=== PATIENT | male | born 1940 | race Caucasian/White ===

== ENCOUNTER → 2017-04-28 08:48 | Outpatient (POV) | payer MEDICARE, BC, SELFPAY ==
[2017-04-28 09:00] VITALS: BP 121/92; PULSE 82; RESP 18; TEMP 36.4; O2SAT 95; BMI 33.7
--- NOTE | 2017-04-28 09:47 | P.CONS_ITS ---
[facility] Pain Management SOAP Note Subjective:: This patient is a pleasant 77-year-old white male who we are seeing status post medial branch blocks/facet joint injections of L3-L4, L4-L5 and L5-S1 bilateral. He is doing well with 80% relief of pain symptoms from these injections. Most of his pain now is over both hips in particular over the SI joints radiating to the groin. He is tender over both SI joints. He has positive Tanesha's test bilaterally. I do believe that he would benefit from bilateral SI joint injections under fluoroscopy. Objective:: Alert and oriented ?3 in no acute distress. Tenderness over both SI joints. Positive Tanesha's test bilaterally. Motor strength of the lower extremities is 5 /5. There is no gross sensory deficit. Assessment:: Bilateral sacroiliitis Plan:: We will seek approval and plan on bilateral sacroiliac joint injections under fluoroscopy. After these injections we will reassess his pain symptoms.
== END ==
PROVIDERS: Family Provider Family Medicine; PCP Family Medicine; Visit Provider Anesthesiology
DX: M46.1 Sacroiliitis, not elsewhere classified (principal)
CPT/HCPCS: 99212

== ENCOUNTER → 2017-05-23 15:43 | Day surgery (SDC) | payer MEDICARE, BC, SELFPAY ==
[2017-05-23 15:50] VITALS: BP 143/69; PULSE 85; RESP 16; TEMP 36.7; O2SAT 97; BMI 33.8
[2017-05-23 16:04] VITALS: BP 161/87; PULSE 89; RESP 18
[2017-05-23 16:06] VITALS: BP 144/90; PULSE 79; RESP 18
--- NOTE | 2017-05-23 16:15 | HMH.PMPROC ---
- Procedure Date: 05/23/17 Time: 16:15 Anesthesiologist:: Yariel Gallegos MD Complications:: None Pre-procedure Diagnosis:: Bilateral sacroiliitis Post-procedure Diagnosis:: Same Indications for Procedure:: This patient is a pleasant 77-year-old white male who we are seeing status post medial branch blocks of the facet joints of L3-L4, L4-L5 and L5-S1. He did get relief with these. Now most of his pain is over both hips. He is tender over both SI joints. He does have positive Tanesha's test bilaterally. We will do bilateral SI joint injections under fluoroscopy today. Procedure Details:: B/L SI joint injection under fluoroscopy Informed consent was obtained and the risks and benefits of the procedure was explained to the patient. The patient was taken to the procedure room and placed prone on the procedure table. The patient was prepped using ChloraPrep. The skin and subcutaneous tissues overlying the SI joints were anesthetized using lidocaine. I placed a 22-gauge needle first in the left SI joint and second in the right SI joint. Needle placement was confirmed with dye. After this we injected 5 mL bupivacaine 0.25% and Depo-Medrol 40 mg into each SI joint. Patient tolerated the procedure well with no complication. Plan and Disposition:: We will follow-up with him in 2 weeks. We will reevaluate his symptoms at that time.
[2017-05-23 16:20] VITALS: BP 122/85; PULSE 74; RESP 18; TEMP 36.6; O2SAT 97
== END ==
PROVIDERS: Family Provider Family Medicine; PCP Family Medicine; Visit Provider Anesthesiology
DX: M46.1 Sacroiliitis, not elsewhere classified (principal)
CPT/HCPCS: 27096; G0260; J1030; Q9966

== ENCOUNTER → 2017-06-16 14:10 | Outpatient (POV) | payer MEDICARE, BC, SELFPAY ==
[2017-06-16 14:56] VITALS: BP 118/75; PULSE 64; RESP 20; O2SAT 100; BMI 33.8
--- NOTE | 2017-06-16 15:14 | HMH.PAINSOAP ---
[facility] Pain Management SOAP Note Subjective:: This patient is a pleasant 77-year-old white male who we are seeing status post bilateral SI joint injections. He did not get much relief. His pain now has moved over his trochanteric bursa is. I do believe he would benefit from bilateral trochanteric bursa injections. He is tender over both trochanteric bursa. Objective:: Alert and oriented ?3 in no acute distress. Patient does have an antalgic gait. There is tenderness over both trochanteric bursa. Motor strength of the lower extremities is 5/5. There is no gross sensory deficit. Assessment:: Degenerative disc disease of lumbar spine with lumbar spondylosis. Sacroiliitis. Bilateral trochanteric bursitis. Plan:: We will seek approval and plan on bilateral trochanteric bursa injection under fluoroscopy. We will schedule this for the next available appointment
== END ==
PROVIDERS: Family Provider Family Medicine; PCP Family Medicine; Visit Provider Anesthesiology
DX: M47.26 Other spondylosis with radiculopathy, lumbar region (principal); M70.62 Trochanteric bursitis, left hip; M70.61 Trochanteric bursitis, right hip
CPT/HCPCS: 99212

== ENCOUNTER 2017-06-25 15:03 | Day surgery (SDC) | payer MEDICARE, BC, SELFPAY ==
[2017-06-25 15:54] VITALS: BP 126/68; PULSE 75; RESP 18; TEMP 36.7; O2SAT 97; BMI 33.8
--- NOTE | 2017-06-25 16:20 | P.PCN_ITS ---
- Procedure Date: 06/25/17 Time: 16:18 Anesthesiologist:: Yariel Gallegos MD Complications:: None Pre-procedure Diagnosis:: Bilateral trochanteric bursitis Post-procedure Diagnosis:: Same Indications for Procedure:: This patient is a pleasant 7-year-old white male who we are seeing status post bilateral SI joint injections. He did not get much relief. Most of the pain seems to be have moved over to the trochanteric bursa. We will do bilateral trochanteric bursa injections today to see if this gives him relief. Procedure Details:: Procedure: Bilateral trochanteric bursa injections under fluoroscopy Informed consent was obtained and the risk and benefits of the procedure was explained to the patient. The patient was taken to procedure room and placed prone on the procedure table. Both hips were prepped using ChloraPrep. The skin and subcutis tissues were anesthetized using lidocaine. I placed a 22- gauge spinal needle under fluoroscopic guidance and advanced until it contacted the right greater trochanter. Needle placement was confirmed with dye. After this we injected 5 mL bupivacaine 0.25% and Depo-Medrol 40 mg into the right trochanteric bursa. I did the same for the left side inserting a 22-gauge spinal needle under fluoroscopic guidance and advanced until it contacted the left trochanter. Needle placement was confirmed with dye. After this we injected 5 mL bupivacaine 0.25% and Depo-Medrol 40 mg into the left trochanteric bursa. Patient tolerated the procedure well with no complications. Plan and Disposition:: We will follow-up with him in 2 weeks. We will reevaluate his symptoms at that time.
[2017-06-25 16:22] VITALS: BP 155/76; PULSE 69; RESP 18
[2017-06-25 16:24] VITALS: BP 146/75; PULSE 84; RESP 20
[2017-06-25 16:35] VITALS: BP 127/90; PULSE 67; RESP 18; O2SAT 98
== END 2017-06-25 16:31 | disposition home or self-care (01) ==
LOC: SC.PAINP 15:06
PROVIDERS: Family Provider Family Medicine; PCP Family Medicine; Visit Provider Anesthesiology
DX: M70.61 Trochanteric bursitis, right hip (principal); M70.62 Trochanteric bursitis, left hip
CPT/HCPCS: 20610; J1030; Q9966

== ENCOUNTER → 2017-07-15 10:55 | Outpatient (POV) | payer MEDICARE, BC, SELFPAY ==
[2017-07-15 11:09] VITALS: BP 122/70; PULSE 78; BMI 46.3
--- NOTE | 2017-07-15 12:30 | HMH.PAINSOAP ---
[facility] Pain Management SOAP Note Subjective:: Patient is a pleasant 77-year-old white male who presents today status post bilateral trochanteric bursa injections. Did not get much relief from this. Patient states his pain is further back in his hip. Patient has tried bilateral SI joint injections in the past with good relief. Patient has had recent imaging of his hips. We will order an x-ray of his bilateral hips. Patient may be a candidate for an intra-articular injection in his bilateral hips. Patient rates his pain 5 out of 10 today. Patient is working. Patient will go sometime this week for his x-rays. ROS General: no recent weight change, no fever, no sleep disturbances Respiratory: no cough, no shortness of air, no recurring pulmonary infections Cardiovascular/Peripheral Vascular: No chest pain, No palpitations, no edema, no shortness of breath. Gastrointestinal: no incontinence, normal bowel movements reported Genitourinary: no incontinence Musculoskeletal: Lateral hip pain Psychiatric: normal mood/ affect Neurological: [denies weakness in extremities], [denies balance issues] Objective:: Physical Exam General: Alert and oriented x3, no acute distress, pleasant and cooperative, [on room air] Lungs: Resps E/U, Symmetrical chest expansion, Eyes: PERRL Musculoskeletal: Flexion and extension of lumbar spine somewhat guarded secondary to pain, deep tendon reflexes normal, strength in upper and lower extremities [5/5], slightly antalgic gait noted, tenderness over bilateral hips Neurological: speech clear, geothermal electrical engineer equal, no gross sensory deficits Assessment:: Bursitis, sacroiliitis, degenerative disc disease of the lumbar spine with lumbar spondylosis Plan:: We will get an x-ray of the patient bilateral hips. We will see if the patient needs to go to orthopedic or if he may benefit from a intra-articular injection. This note was dictated using voice recognition software and may contain errors or omissions
--- NOTE | 2017-07-15 12:33 | P.CONS_ITS ---
[facility] Pain Management SOAP Note Subjective:: Patient is a pleasant 77-year-old white male who presents today status post bilateral trochanteric bursa injections. Did not get much relief from this. Patient states his pain is further back in his hip. Patient has tried bilateral SI joint injections in the past with good relief. Patient has had recent imaging of his hips. We will order an x-ray of his bilateral hips. Patient may be a candidate for an intra-articular injection in his bilateral hips. Patient rates his pain 5 out of 10 today. Patient is working. Patient will go sometime this week for his x-rays. ROS General: no recent weight change, no fever, no sleep disturbances Respiratory: no cough, no shortness of air, no recurring pulmonary infections Cardiovascular/Peripheral Vascular: No chest pain, No palpitations, no edema, no shortness of breath. Gastrointestinal: no incontinence, normal bowel movements reported Genitourinary: no incontinence Musculoskeletal: Lateral hip pain Psychiatric: normal mood/ affect Neurological: [denies weakness in extremities], [denies balance issues] Objective:: Physical Exam General: Alert and oriented x3, no acute distress, pleasant and cooperative, [ on room air] Lungs: Resps E/U, Symmetrical chest expansion, Eyes: PERRL Musculoskeletal: Flexion and extension of lumbar spine somewhat guarded secondary to pain, deep tendon reflexes normal, strength in upper and lower extremities [5/5], slightly antalgic gait noted, tenderness over bilateral hips Neurological: speech clear, 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 We will see if the patient needs to go to orthopedic or if he may benefit from a intra-articular injection. This note was dictated using voice recognition software and may contain errors or omissions
== END ==
PROVIDERS: Family Provider Family Medicine; PCP Family Medicine; Visit Provider Clinical Nurse Specialist Family Health
DX: M47.816 Spondylosis without myelopathy or radiculopathy, lumbar region (principal)
CPT/HCPCS: 99212

== ENCOUNTER → 2017-07-21 09:54 | Outpatient (CLI) | payer MEDICARE, BC, SELFPAY ==
--- NOTE | 2017-07-21 10:02 | XR_ITS ---
XR hip LT 2-3V w/pelvis HISTORY: Left hip pain ITS.REASON: GALILEA HIP PAIN, ORDERING PHYSICIAN: Ashly Liriano PATIENT AGE: 77 years FINDINGS: No fracture or dislocation. No lytic or blastic change. There is slight decrease in the hip joint space. There is mild sclerosis noted along the lower aspect of the SI joint consistent mild osteoarthritic change. 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
--- NOTE | 2017-07-21 10:02 | XR_ITS ---
XR hip RT 2-3V w/pelvis HISTORY: Right hip pain ITS.REASON: GALILEA HIP PAIN ORDERING PHYSICIAN: Ashly Liriano PATIENT AGE: 77 years FINDINGS: No fracture or dislocation is evident. There are mild osteoarthritic changes of the right hip. No lytic or blastic change. Mild sclerosis in the inferior aspect of the right SI joint. Facet arthritic changes are present in the lower lumbar spine. IMPRESSION: Mild osteoarthritis of the right hip and SI joint. Facet arthritic changes on the right in the lower lumbar spine
== END ==
PROVIDERS: PCP Family Medicine; Visit Provider Clinical Nurse Specialist Family Health
DX: M25.551 Pain in right hip (principal); M25.552 Pain in left hip
CPT/HCPCS: 73502

== ENCOUNTER → 2017-08-11 14:29 | Outpatient (POV) | payer MEDICARE, BC, SELFPAY ==
[2017-08-11 14:35] VITALS: BP 135/77; PULSE 82; RESP 18; TEMP 36.7; O2SAT 98; BMI 33.8
--- NOTE | 2017-08-11 14:52 | HMH.PAINSOAP ---
[facility] Pain Management SOAP Note Subjective:: Patient is a pleasant 77-year-old white male who presents today for follow-up after bilateral hip x-rays. Patient's x-rays do show osteoarthritis of both hips and SI joints. Patient states is a size of done well after his last injection. Patient rates his pain a 3 out of 10 today. He does state if he stands for long periods of time he does get hip pain. Patient is interested in intra-articular bilateral hip injections. Patient has done well with injections in the past. Patient is continuing to be physically active. Patient's tried and failed medications, anti-inflammatories, physical therapy. ROS General: no recent weight change, no fever, no sleep disturbances Respiratory: no cough, no shortness of air, no recurring pulmonary infections Cardiovascular/Peripheral Vascular: No chest pain, No palpitations, no edema, no shortness of breath. Gastrointestinal: no incontinence, normal bowel movements reported Genitourinary: no incontinence Musculoskeletal: Bilateral hip pain Psychiatric: normal mood/ affect, [denies depression], [denies anxiety] Neurological: [denies weakness in extremities], [denies balance issues] Objective:: Physical Exam General: Alert and oriented x3, no acute distress, pleasant and cooperative, room air Lungs: Resps E/U, Symmetrical chest expansion, Eyes: PERRL Musculoskeletal: Flexion and extension of lumbar spine somewhat guarded secondary to pain, deep tendon reflexes normal, strength in upper and lower extremities [5/5], [abnormal gait noted], point tenderness over bilateral hips Neurological: speech clear, systems integrator equal, no gross sensory deficits Assessment:: Arthritis of bilateral hips and sacroiliitis Plan:: We will schedule bilateral intra-articular hip injections for the patient. Patient has done well with injections in the past. I believe that this would be beneficial. I will follow-up with the patient after his injection. Patient is tried and failed therapy, medication, anti-inflammatories. This note was dictated using voice recognition software and may contain errors or omissions
--- NOTE | 2017-08-11 15:16 | P.CONS_ITS ---
[facility] Pain Management SOAP Note Subjective:: Patient is a pleasant 77-year-old white male who presents today for follow-up after bilateral hip x-rays. Patient's x-rays do show osteoarthritis of both hips and SI joints. Patient states is a size of done well after his last injection. Patient rates his pain a 3 out of 10 today. He does state if he stands for long periods of time he does get hip pain. Patient is interested in intra-articular bilateral hip injections. Patient has done well with injections in the past. Patient is continuing to be physically active. Patient 's tried and failed medications, anti-inflammatories, physical therapy. ROS General: no recent weight change, no fever, no sleep disturbances Respiratory: no cough, no shortness of air, no recurring pulmonary infections Cardiovascular/Peripheral Vascular: No chest pain, No palpitations, no edema, no shortness of breath. Gastrointestinal: no incontinence, normal bowel movements reported Genitourinary: no incontinence Musculoskeletal: Bilateral hip pain Psychiatric: normal mood/ affect, [denies depression], [denies anxiety] Neurological: [denies weakness in extremities], [denies balance issues] Objective:: Physical Exam General: Alert and oriented x3, no acute distress, pleasant and cooperative, room air Lungs: Resps E/U, Symmetrical chest expansion, Eyes: PERRL Musculoskeletal: Flexion and extension of lumbar spine somewhat guarded secondary to pain, deep tendon reflexes normal, strength in upper and lower extremities [5/5], [abnormal gait noted], point tenderness over bilateral hips Neurological: speech clear, greenkeeper equal, no gross sensory deficits Assessment:: Arthritis of bilateral hips and sacroiliitis Plan:: We will schedule bilateral intra-articular hip injections for the patient. Patient has done well with injections in the past. I believe that this would be beneficial. I will follow-up with the patient after his injection. Patient is tried and failed therapy, medication, anti-inflammatories. This note was dictated using voice recognition software and may contain errors or omissions
== END ==
PROVIDERS: Family Provider Family Medicine; PCP Family Medicine; Visit Provider Clinical Nurse Specialist Family Health
DX: M16.0 Bilateral primary osteoarthritis of hip (principal)
CPT/HCPCS: 99212

== ENCOUNTER → 2017-09-16 08:40 | Outpatient (POV) | payer MEDICARE, BC, SELFPAY ==
[2017-09-16 08:58] VITALS: BP 133/90; PULSE 83; RESP 20; O2SAT 97; BMI 32.5
--- NOTE | 2017-09-16 11:37 | HMH.PAINSOAP ---
[facility] Pain Management SOAP Note Subjective:: Patient is a pleasant 77-year-old white male who presents today after bilateral intra-articular hip injections. Patient states that he got significant relief with this. He rates 80-90% improvement with his symptoms. he states that he is able to walk around [employer] and is much more functional after this injection. He rates his pain a 5 out of 10 today. Patient would like one more set of injections to see if he gets some longer-term relief with it. I told him that we would do this in several weeks. ROS General: no recent weight change, no fever, no sleep disturbances Respiratory: no cough, no shortness of air, no recurring pulmonary infections Cardiovascular/Peripheral Vascular: No chest pain, No palpitations, no edema, no shortness of breath. Gastrointestinal: no incontinence, normal bowel movements reported Genitourinary: no incontinence Musculoskeletal: Bilateral hip pain Psychiatric: normal mood/ affect Neurological: [denies weakness in extremities], [denies balance issues] Objective:: Physical Exam General: Alert and oriented x3, no acute distress, pleasant and cooperative, [on room air] Lungs: Resps E/U, Symmetrical chest expansion, Eyes: PERRL Musculoskeletal: Range of motion bilateral hips somewhat guarded secondary to pain, deep tendon reflexes normal, strength in upper and lower extremities [5/5], [abnormal gait noted] Neurological: speech clear, chucking machine set up operator tool equal, no gross sensory deficits Assessment:: Bilateral arthritis both hips with degenerative changes Plan:: We will schedule another round of intra-articular hip injections in several weeks. Patient is doing extremely well at this time. Patient can call us if he has any issues prior to his and extension. This note was dictated using voice recognition software and may contain errors or omissions
--- NOTE | 2017-09-16 11:42 | P.CONS_ITS ---
[facility] Pain Management SOAP Note Subjective:: Patient is a pleasant 77-year-old white male who presents today after bilateral intra-articular hip injections. Patient states that he got significant relief with this. He rates 80-90% improvement with his symptoms. he states that he is able to walk around [employer] and is much more functional after this injection. He rates his pain a 5 out of 10 today. Patient would like one more set of injections to see if he gets some longer-term relief with it. I told him that we would do this in several weeks. ROS General: no recent weight change, no fever, no sleep disturbances Respiratory: no cough, no shortness of air, no recurring pulmonary infections Cardiovascular/Peripheral Vascular: No chest pain, No palpitations, no edema, no shortness of breath. Gastrointestinal: no incontinence, normal bowel movements reported Genitourinary: no incontinence Musculoskeletal: Bilateral hip pain Psychiatric: normal mood/ affect Neurological: [denies weakness in extremities], [denies balance issues] Objective:: Physical Exam General: Alert and oriented x3, no acute distress, pleasant and cooperative, [ on room air] Lungs: Resps E/U, Symmetrical chest expansion, Eyes: PERRL Musculoskeletal: Range of motion bilateral hips somewhat guarded secondary to pain, deep tendon reflexes normal, strength in upper and lower extremities [5/5] , [abnormal gait noted] Neurological: speech clear, mayonnaise mixer equal, no gross sensory deficits Assessment:: Bilateral arthritis both hips with degenerative changes Plan:: We will schedule another round of intra-articular hip injections in several weeks. Patient is doing extremely well at this time. Patient can call us if he has any issues prior to his and extension. This note was dictated using voice recognition software and may contain errors or omissions
== END ==
PROVIDERS: Family Provider Family Medicine; PCP Family Medicine; Visit Provider Clinical Nurse Specialist Family Health
DX: M16.0 Bilateral primary osteoarthritis of hip (principal)
CPT/HCPCS: 99212

== ENCOUNTER → 2017-11-10 11:32 | Outpatient (POV) | payer MEDICARE, BC, SELFPAY ==
[2017-11-10 11:40] VITALS: BP 124/79; PULSE 81; RESP 18; O2SAT 98; BMI 33.3
--- NOTE | 2017-11-10 12:19 | P.CONS_ITS ---
[facility] Pain Management SOAP Note Subjective:: Patient is a pleasant 77-year-old white male who we are treating for bilateral hip pain with degenerative joint disease of both hips and degenerative arthritis of both hips. Patient has been doing well with his bilateral intra- articular hip injections. Patient gets 90% relief for several months after his injections. Patient is doing well at this time he rates his pain a 7 out of 10 however he states because he has been walking around [facility]. Patient would like to repeat his bilateral intra-articular injections in several weeks. ROS General: no recent weight change, no fever, no sleep disturbances Respiratory: no cough, no shortness of air, no recurring pulmonary infections Cardiovascular/Peripheral Vascular: No chest pain, No palpitations, no edema, no shortness of breath. Gastrointestinal: no incontinence, normal bowel movements reported Genitourinary: no incontinence Musculoskeletal: Hip pain bilaterally Psychiatric: normal mood/ affect Neurological: [denies weakness in extremities], [denies balance issues] Objective:: Physical Exam General: Alert and oriented x3, no acute distress, pleasant and cooperative, [ on room air] Lungs: Resps E/U, Symmetrical chest expansion, Eyes: PERRL Musculoskeletal: Flexion and extension of lumbar spine somewhat guarded secondary to pain, deep tendon reflexes normal, strength in upper and lower extremities [5/5], antalgic gait noted Neurological: speech clear, clam picker equal, no gross sensory deficits Assessment:: Degenerative joint disease bilateral hips with degenerative arthritis Plan:: We will schedule repeat intra-articular injections of bilateral hips in several weeks. Patient has done well with these in the past. Patient is on Coumadin therapy. This note was dictated using voice recognition software and may contain errors or omissions
== END ==
PROVIDERS: Family Provider Family Medicine; PCP Family Medicine; Visit Provider Clinical Nurse Specialist Family Health
DX: M16.0 Bilateral primary osteoarthritis of hip (principal); Z79.01 Long term (current) use of anticoagulants
CPT/HCPCS: 99212

== ENCOUNTER → 2017-12-16 09:30 | Outpatient (POV) | payer MEDICARE, BC, SELFPAY ==
[2017-12-16 09:53] VITALS: BP 120/82; PULSE 79; RESP 18; TEMP 36.3; O2SAT 97; BMI 33.0
--- NOTE | 2017-12-16 10:15 | P.CONS_ITS ---
[facility] Pain Management SOAP Note Subjective:: Patient is a pleasant 77-year-old white male who presents today for follow-up after bilateral intra-articular hip injections. Patient is doing extremely well and states he is 90% better after the injection. Patient states that these last for him about 2-3 months. Patient would like to repeat this in several months. Patient does have degenerative arthritis of both hips. Patient states he is more active after the injections. Patient is continuing a home stretching routine. Patient states that he would like to avoid surgery as long as the injections are beneficial. ROS General: no recent weight change, no fever, no sleep disturbances Respiratory: no cough, no shortness of air, no recurring pulmonary infections Cardiovascular/Peripheral Vascular: No chest pain, No palpitations, no edema, no shortness of breath. Gastrointestinal: no incontinence, normal bowel movements reported Genitourinary: no incontinence Musculoskeletal: Bilateral hip pain Psychiatric: normal mood/ affect, Neurological: [denies weakness in extremities], [denies balance issues] Objective:: Physical Exam General: Alert and oriented x3, no acute distress, pleasant and cooperative, [on room air] Lungs: Resps E/U, Symmetrical chest expansion, Eyes: PERRL Musculoskeletal: Flexion and extension of lumbar spine somewhat guarded secondary to pain, deep tendon reflexes normal, strength in upper and lower extremities [5/5], [abnormal gait noted] Neurological: speech clear, gear nicker equal, no gross sensory deficits Assessment:: 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 Patient is not on anticoagulation therapy. I will follow-up with the patient after his injection. Patient's been instructed to call the office if he has any issues prior to his next appointment. This note was dictated using voice recognition software and may contain errors or omissions
== END ==
PROVIDERS: Family Provider Family Medicine; PCP Family Medicine; Visit Provider Clinical Nurse Specialist Family Health
DX: M16.0 Bilateral primary osteoarthritis of hip
CPT/HCPCS: 99213

== ENCOUNTER → 2018-02-02 11:08 | Outpatient (POV) | payer MEDICARE, BC, SELFPAY ==
[2018-02-02 11:25] VITALS: BP 110/69; PULSE 65; RESP 18; O2SAT 98; BMI 32.7
--- NOTE | 2018-02-02 11:49 | HMH.PAINSOAP ---
[facility] Pain Management SOAP Note Subjective:: Patient is a pleasant 77-year-old white male who presents today for follow-up after bilateral intra-articular hip injections. Patient is doing extremely well stating he is 90% better. Patient would like to have this every 2-3 months. Patient does have degenerative arthritis in both hips. Patient states he is much more active after injections. Patient is continuing a home stretching routine. Patient would like to avoid surgery as long as possible with injections. ROS General: no recent weight change, no fever, no sleep disturbances Respiratory: no cough, no shortness of air, no recurring pulmonary infections Cardiovascular/Peripheral Vascular: No chest pain, No palpitations, no edema, no shortness of breath. Gastrointestinal: no incontinence, normal bowel movements reported Genitourinary: no incontinence Musculoskeletal: Bilateral hip pain Psychiatric: normal mood/ affect Neurological: [denies weakness in extremities], [denies balance issues] Objective:: Physical Exam General: Alert and oriented x3, no acute distress, pleasant and cooperative, [on room air] Lungs: Resps E/U, Symmetrical chest expansion, Eyes: PERRL Musculoskeletal: Flexion and extension of lumbar spine somewhat guarded secondary to pain, deep tendon reflexes normal, strength in upper and lower extremities [5/5], [abnormal gait noted] Neurological: speech clear, kitchen runner equal, no gross sensory deficits Assessment:: Degenerative osteoarthritis of both hips and bilateral hip pain Plan:: We will schedule the patient for a repeat bilateral intra-articular hip injection in several months. Patient's doing well at this time. He is not on any anticoagulation therapy. I will follow-up with him after his injection. Patient's been instructed to call the office if he has any issues prior to his next appointment. This note was dictated using voice recognition software and may contain errors or omissions
--- NOTE | 2018-02-02 11:52 | P.CONS_ITS ---
[facility] Pain Management SOAP Note Subjective:: Patient is a pleasant 77-year-old white male who presents today for follow-up after bilateral intra-articular hip injections. Patient is doing extremely well stating he is 90% better. Patient would like to have this every 2-3 months. Patient does have degenerative arthritis in both hips. Patient states he is much more active after injections. Patient is continuing a home stretching routine. Patient would like to avoid surgery as long as possible with injections. ROS General: no recent weight change, no fever, no sleep disturbances Respiratory: no cough, no shortness of air, no recurring pulmonary infections Cardiovascular/Peripheral Vascular: No chest pain, No palpitations, no edema, no shortness of breath. Gastrointestinal: no incontinence, normal bowel movements reported Genitourinary: no incontinence Musculoskeletal: Bilateral hip pain Psychiatric: normal mood/ affect Neurological: [denies weakness in extremities], [denies balance issues] Objective:: Physical Exam General: Alert and oriented x3, no acute distress, pleasant and cooperative, [on room air] Lungs: Resps E/U, Symmetrical chest expansion, Eyes: PERRL Musculoskeletal: Flexion and extension of lumbar spine somewhat guarded secondary to pain, deep tendon reflexes normal, strength in upper and lower extremities [5/5], [abnormal gait noted] Neurological: speech clear, kettle operator equal, no gross sensory deficits Assessment:: Degenerative osteoarthritis of both hips and bilateral hip pain Plan:: We will schedule the patient for a repeat bilateral intra-articular hip injection in several months. Patient's doing well at this time. He is not on any anticoagulation therapy. I will follow-up with him after his injection. Patient's been instructed to call the office if he has any issues prior to his next appointment. This note was dictated using voice recognition software and may contain errors or omissions
== END ==
PROVIDERS: Visit Provider Clinical Nurse Specialist Family Health
DX: M16.0 Bilateral primary osteoarthritis of hip (principal)
CPT/HCPCS: 99213

== ENCOUNTER → 2018-04-06 09:05 | Outpatient (POV) | payer MEDICARE, BC, SELFPAY ==
[2018-04-06 09:20] VITALS: BP 125/93; PULSE 71; RESP 18; O2SAT 98; BMI 33.0
--- NOTE | 2018-04-06 09:39 | HMH.PAINSOAP ---
[facility] Pain Management SOAP Note Subjective:: Patient is a pleasant 77-year-old white male who presents today for follow-up after bilateral intra-articular hip injections. Patient is doing well at this time he rates his pain a 6 out of 10 however it is been increased due to recent activity. Patient would like to have another injection in 2-3 months. Patient does well with these. She denies have discussed the fact that these injections may not always work for him and understands this. Patient would like to continue with injections until that time. ROS General: no recent weight change, no fever, no sleep disturbances Respiratory: no cough, no shortness of air, no recurring pulmonary infections Cardiovascular/Peripheral Vascular: No chest pain, No palpitations, no edema, no shortness of breath. Gastrointestinal: no incontinence, normal bowel movements reported Genitourinary: no incontinence Musculoskeletal: Bilateral hip pain Psychiatric: normal mood/ affect, , Neurological: [denies weakness in extremities], [denies balance issues] Objective:: Physical Exam General: Alert and oriented x3, no acute distress, pleasant and cooperative, [on room air] Lungs: Resps E/U, Symmetrical chest expansion, Eyes: PERRL Musculoskeletal: Flexion and extension of lumbar spine somewhat guarded secondary to pain, deep tendon reflexes normal, strength in upper and lower extremities [5/5], antalgic gait noted Neurological: speech clear, entry level lab technician equal, no gross sensory deficits Assessment:: Degenerative osteoarthritis both hips with bilateral hip pain Plan:: We will schedule the patient in a month or 2 for bilateral intra-articular hip injections. Patient's been instructed to call the office if he has any issues prior to his next appointment. This note was dictated using voice recognition software and may contain errors or omissions
--- NOTE | 2018-04-06 09:42 | P.CONS_ITS ---
[facility] Pain Management SOAP Note Subjective:: Patient is a pleasant 77-year-old white male who presents today for follow-up after bilateral intra-articular hip injections. Patient is doing well at this time he rates his pain a 6 out of 10 however it is been increased due to recent activity. Patient would like to have another injection in 2-3 months. Patient does well with these. She denies have discussed the fact that these injections may not always work for him and understands this. Patient would like to continue with injections until that time. ROS General: no recent weight change, no fever, no sleep disturbances Respiratory: no cough, no shortness of air, no recurring pulmonary infections Cardiovascular/Peripheral Vascular: No chest pain, No palpitations, no edema, no shortness of breath. Gastrointestinal: no incontinence, normal bowel movements reported Genitourinary: no incontinence Musculoskeletal: Bilateral hip pain Psychiatric: normal mood/ affect, , Neurological: [denies weakness in extremities], [denies balance issues] Objective:: Physical Exam General: Alert and oriented x3, no acute distress, pleasant and cooperative, [on room air] Lungs: Resps E/U, Symmetrical chest expansion, Eyes: PERRL Musculoskeletal: Flexion and extension of lumbar spine somewhat guarded secon rafael to pain, deep tendon reflexes normal, strength in upper and lower extremities [5/5], antalgic gait noted Neurological: speech clear, cytopathologist equal, no gross sensory deficits Assessment:: Degenerative osteoarthritis both hips with bilateral hip pain Plan:: We will schedule the patient in a month or 2 for bilateral intra-articular hip injections. Patient's been instructed to call the office if he has any issues prior to his next appointment. This note was dictated using voice recognition software and may contain errors or omissions
== END ==
PROVIDERS: Visit Provider Clinical Nurse Specialist Family Health
DX: M16.0 Bilateral primary osteoarthritis of hip (principal)
CPT/HCPCS: 99213

== ENCOUNTER → 2018-06-02 09:51 | Outpatient (POV) | payer MEDICARE, BC, SELFPAY ==
[2018-06-02 10:17] VITALS: BP 120/82; PULSE 73; RESP 18; O2SAT 98; BMI 34.0
--- NOTE | 2018-06-02 10:37 | HMH.PAINSOAP ---
[facility] Pain Management SOAP Note Subjective:: Patient is a pleasant 78-year-old white male who presents today for follow-up after bilateral intra-articular hip injections. Patient is doing extremely well after this rating his pain a 0 out of 10 at this time. Patient and I discussed about long-term effects of the steroid injections along with potential need for replacement. Patient states that he wants to continue with the steroid injections at this time. He states he does not want to look into surgery at this time. Patient and I also discussed anti-inflammatories. Patient has not tried any topical anti-inflammatories. He is unable to take them orally due to his cardiac history. ROS General: no recent weight change, no fever, no sleep disturbances Respiratory: no cough, no shortness of air, no recurring pulmonary infections Cardiovascular/Peripheral Vascular: No chest pain, No palpitations, no edema, no shortness of breath. Gastrointestinal: no incontinence, normal bowel movements reported Genitourinary: no incontinence Musculoskeletal: Bilateral hip pain Psychiatric: normal mood/ affect Neurological: [denies weakness in extremities], [denies balance issues] Objective:: Physical Exam General: Alert and oriented x3, no acute distress, pleasant and cooperative, [on room air] Lungs: Resps E/U, Symmetrical chest expansion, Eyes: PERRL Musculoskeletal: Flexion and extension of lumbar spine somewhat guarded secondary to pain, deep tendon reflexes normal, strength in upper and lower extremities [5/5], slightly antalgic gait noted Neurological: speech clear, residential interior designer equal, no gross sensory deficits Assessment:: Degenerative osteoarthritis bilateral hips Plan:: We will schedule the patient for repeat injections in several weeks. We will also call in Voltaren gel 1% 2-4 g to affected area twice daily as needed. I will follow-up with the patient after his injections reassess his symptoms at that time has been instructed to call the office if he has any issues prior to his next appointment. Dr. Gallegos has reviewed this note and agrees with this plan of care. This note was dictated using voice recognition software and may contain errors or omissions
== END ==
PROVIDERS: Visit Provider Clinical Nurse Specialist Family Health
DX: M16.0 Bilateral primary osteoarthritis of hip (principal)
CPT/HCPCS: 99213

== ENCOUNTER → 2018-07-27 09:57 | Outpatient (POV) | payer MEDICARE, BC, SELFPAY ==
[2018-07-27 10:10] VITALS: BP 132/90; PULSE 78; RESP 18; O2SAT 98; BMI 32.7
--- NOTE | 2018-07-27 10:17 | HMH.PAINSOAP ---
[facility] Pain Management SOAP Note Subjective:: Patient is a pleasant 78-year-old white male who we are treating for bilateral hip pain and degenerative joint disease. Patient is well with bilateral hip injections he is interested in continuing with these. Patient states he is trying to put off surgery for as long as possible he had pain 0 out of 10 until just yesterday when he would did a lot of walking. Patient is also utilizing compounding cream he states that it works well for him. ROS General: no recent weight change, no fever, no sleep disturbances Respiratory: no cough, no shortness of air, no recurring pulmonary infections Cardiovascular/Peripheral Vascular: No chest pain, No palpitations, no edema, no shortness of breath. Gastrointestinal: no incontinence, normal bowel movements reported Genitourinary: no incontinence Musculoskeletal: Bilateral hip pain Psychiatric: normal mood/ affect Neurological: [denies weakness in extremities], [denies balance issues] Objective:: Physical Exam General: Alert and oriented x3, no acute distress, pleasant and cooperative, [on room air] Lungs: Resps E/U, Symmetrical chest expansion, Eyes: PERRL Musculoskeletal: Flexion and extension of lumbar spine somewhat guarded secondary to pain, deep tendon reflexes normal, strength in upper and lower extremities [5/5], [abnormal gait noted] extreme tenderness over bilateral hips Neurological: speech clear, registered dietician equal, no gross sensory deficits Assessment:: Degenerative joint disease, bilateral hip pain Plan:: We will set the patient up for bilateral hip injections. I believe it would be beneficial. Patient is continuing his anti-inflammatories and compounding cream. He is continuing a home stretching program. Dr. Gallegos has reviewed this note and agrees with this plan of care. This note was dictated using voice recognition software and may contain errors or omissions
== END ==
PROVIDERS: Visit Provider Clinical Nurse Specialist Family Health
DX: M25.552 Pain in left hip (principal); M19.90 Unspecified osteoarthritis, unspecified site; M25.551 Pain in right hip
CPT/HCPCS: 99212

== ENCOUNTER → 2018-09-01 10:06 | Outpatient (POV) | payer MEDICARE, BC, SELFPAY ==
[2018-09-01 10:33] VITALS: BP 127/84; PULSE 72; RESP 18; O2SAT 98; BMI 33.5
--- NOTE | 2018-09-01 11:17 | HMH.PAINSOAP ---
[facility] Pain Management SOAP Note Subjective:: Patient is a pleasant 78-year-old white male who presents today for follow-up of bilateral intra-articular hip injections. The patient has bilateral hip pain and degenerative joint disease both hips. He does well with bilateral hip injections, with significant relief of his pain for several months after. The patient says that he has 90% relief today. He is able to garden and do light activities outside, and says the injections have worked well. Patient is also continuing a home stretching program along with anti-inflammatories. He says he is still continuing to use the Voltaren gel that was ordered from him the last. Pain is a 3 out of 10. ROS General: no recent weight change, no fever, no sleep disturbances Respiratory: no cough, no shortness of air, no recurring pulmonary infections Cardiovascular/Peripheral Vascular: No chest pain, No palpitations, no edema, no shortness of breath. Gastrointestinal: no incontinence, normal bowel movements reported Genitourinary: no incontinence Musculoskeletal: Hip pain Psychiatric: normal mood/ affect, [denies depression], [denies anxiety] Neurological: [denies weakness in extremities], [denies balance issues] Objective:: Physical Exam General: Alert and oriented x3, no acute distress, pleasant and cooperative, [on room air] Lungs: Resps E/U, Symmetrical chest expansion, [CTA bilateral] Eyes: PERRL Musculoskeletal: Flexion and extension of lumbar spine somewhat guarded secondary to pain, deep tendon reflexes normal, strength in upper and lower extremities [5/5], [abnormal gait noted] Neurological: speech clear, swimming pool plasterer helper equal, no gross sensory deficits Assessment:: Bilateral hip pain, degenerative osteoarthritis both hips Plan:: We will order Voltaren gel 1% 4 g topical twice daily. We will also schedule the patient for a follow-up visit in 1 month. The patient has been instructed to call the office if he has any issues prior to the next visit. He is been instructed to continue home stretching program and anti-inflammatories. Dr. Gallegos has reviewed this note and agrees with this plan of care. This note was dictated using voice recognition software and may contain errors or omissions
== END ==
PROVIDERS: PCP Orthopaedic Surgery; Visit Provider Clinical Nurse Specialist Family Health
DX: M16.0 Bilateral primary osteoarthritis of hip (principal)
CPT/HCPCS: 99212

== ENCOUNTER → 2018-09-22 10:57 | Outpatient (POV) | payer MEDICARE, BC, SELFPAY ==
[2018-09-22 11:17] VITALS: BP 128/90; PULSE 71; RESP 18; O2SAT 98; BMI 33.3
--- NOTE | 2018-09-22 11:48 | HMH.PAINSOAP ---
[facility] Pain Management SOAP Note Subjective:: Patient is a very pleasant 78-year-old white male who presents today for complaints of bilateral hip pain. Patient has had bilateral intra-articular hip injections in the past. He had 90% relief with them in the past. He would like to have these injections again. Patient says he is able to do light activity, but is having increased pain recent days. He rates his pain a 9 out of 10 today. He is still using Voltaren gel and continuing a home stretching program. ROS General: no recent weight change, no fever, no sleep disturbances Respiratory: no cough, no shortness of air, no recurring pulmonary infections Cardiovascular/Peripheral Vascular: No chest pain, No palpitations, no edema, no shortness of breath. Gastrointestinal: no incontinence, normal bowel movements reported Genitourinary: no incontinence Musculoskeletal: Bilateral hip pain Psychiatric: normal mood/ affect, [denies depression], [denies anxiety] Neurological: [denies weakness in extremities], [denies balance issues] Objective:: Physical Exam General: Alert and oriented x3, no acute distress, pleasant and cooperative, [on room air] Lungs: Resps E/U, Symmetrical chest expansion, Eyes: PERRL Musculoskeletal: Range of motion to bilateral hips somewhat guarded secondary to pain, deep tendon reflexes normal, strength in upper and lower extremities [5/5], antalgic gait noted Neurological: speech clear, railway head tender equal, no gross sensory deficits Assessment:: Bilateral hip pain, degenerative osteoarthritis bilateral hips Plan:: We will schedule the patient for bilateral intra-articular hip injections. The patient is not on any anticoagulation therapy. He will continue a home stretching program and Voltaren gel. We will see him back after his procedure and reassess his symptoms at that time. He is been instructed to call the office if he has any concerns prior to his next appointment. Dr. Gallegos has reviewed this note and agrees with this plan of care. This note was dictated using voice recognition software and may contain errors or omissions
--- NOTE | 2018-09-22 11:51 | P.CONS_ITS ---
[facility] Pain Management SOAP Note Subjective:: Patient is a very pleasant 78-year-old white male who presents today for complaints of bilateral hip pain. Patient has had bilateral intra-articular hip injections in the past. He had 90% relief with them in the past. He would like to have these injections again. Patient says he is able to do light activity, but is having increased pain recent days. He rates his pain a 9 out of 10 today. He is still using Voltaren gel and continuing a home stretching program. ROS General: no recent weight change, no fever, no sleep disturbances Respiratory: no cough, no shortness of air, no recurring pulmonary infections Cardiovascular/Peripheral Vascular: No chest pain, No palpitations, no edema, no shortness of breath. Gastrointestinal: no incontinence, normal bowel movements reported Genitourinary: no incontinence Musculoskeletal: Bilateral hip pain Psychiatric: normal mood/ affect, [denies depression], [denies anxiety] Neurological: [denies weakness in extremities], [denies balance issues] Objective:: Physical Exam General: Alert and oriented x3, no acute distress, pleasant and cooperative, [on room air] Lungs: Resps E/U, Symmetrical chest expansion, Eyes: PERRL Musculoskeletal: Range of motion to bilateral hips somewhat guarded secondary to pain, deep tendon reflexes normal, strength in upper and lower extremities [5/5], antalgic gait noted Neurological: speech clear, flat surfacer jewel equal, no gross sensory deficits Assessment:: Bilateral hip pain, degenerative osteoarthritis bilateral hips Plan:: We will schedule the patient for bilateral intra-articular hip injections. The patient is not on any anticoagulation therapy. He will continue a home stretching program and Voltaren gel. We will see him back after his procedure and reassess his symptoms at that time. He is been instructed to call the office if he has any concerns prior to his next appointment. Dr. Gallegos has reviewed this note and agrees with this plan of care. This note was dictated using voice recognition software and may contain errors or omissions
== END ==
PROVIDERS: Visit Provider Clinical Nurse Specialist Family Health
DX: M16.0 Bilateral primary osteoarthritis of hip (principal)
CPT/HCPCS: 99212

== ENCOUNTER → 2018-10-26 10:49 | Outpatient (POV) | payer MEDICARE, BC, SELFPAY ==
[2018-10-26 11:04] VITALS: BP 116/75; PULSE 58; RESP 18; O2SAT 98; BMI 33.5
--- NOTE | 2018-10-26 12:56 | P.CONS_ITS ---
[facility] Pain Management SOAP Note Subjective:: Patient is a pleasant 78-year-old white male who we are treating for bilateral hip pain he is doing well getting 90% relief from his bilateral hip injections. He does well with getting these several several months. Patient states he is much more functional. He does have pain when he pushes himself too hard. Today he rates his pain 8 out of 10 however it is due to the fact that he went to multiple shopping locations recently. ROS General: no recent weight change, no fever, no sleep disturbances Respiratory: no cough, no shortness of air, no recurring pulmonary infections Cardiovascular/Peripheral Vascular: No chest pain, No palpitations, no edema, no shortness of breath. Gastrointestinal: no incontinence, normal bowel movements reported Genitourinary: no incontinence Musculoskeletal: Bilateral hip pain Psychiatric: normal mood/ affect Neurological: [denies weakness in extremities], [denies balance issues] Objective:: Physical Exam General: Alert and oriented x3, no acute distress, pleasant and cooperative, [on room air] Lungs: Resps E/U, Symmetrical chest expansion, Eyes: PERRL Musculoskeletal: Flexion and extension of lumbar spine somewhat guarded secondary to pain, deep tendon reflexes normal, strength in upper and lower extremities [5/5], [abnormal gait noted] tenderness over both hips Neurological: speech clear, health unit coordinator equal, no gross sensory deficits Assessment:: Degenerative osteoarthritis of bilateral hips Plan:: Patient would like to continue with injective therapy instead of going forward with any kind of surgical intervention at this time. We will set him up for injections of intra-articular hip injections bilaterally in several weeks. Dr. Gallegos has reviewed this note and agrees with this plan of care. This note was dictated using voice recognition software and may contain errors or omissions
== END ==
PROVIDERS: PCP Family Medicine; Visit Provider Clinical Nurse Specialist Family Health
DX: M16.0 Bilateral primary osteoarthritis of hip (principal)
CPT/HCPCS: 99212

== ENCOUNTER → 2019-01-25 11:23 | Outpatient (POV) | payer MEDICARE, BC, SELFPAY ==
[2019-01-25 12:04] VITALS: BP 134/99; PULSE 94; RESP 18; O2SAT 99; BMI 34.9
--- NOTE | 2019-01-25 12:34 | HMH.PAINSOAP ---
[facility] Pain Management SOAP Note Subjective:: Patient is a pleasant 78-year-old white male who we are treating for bilateral hip pain. Patient following up after his intra-articular hip injections. Patient does extremely well with this getting up to 70% relief and increased functionality. He would like to repeat this. He is continuing his anti-inflammatories and home stretching program. ROS General: no recent weight change, no fever, no sleep disturbances Respiratory: no cough, no shortness of air, no recurring pulmonary infections Cardiovascular/Peripheral Vascular: No chest pain, No palpitations, no edema, no shortness of breath. Gastrointestinal: no new onset incontinence, normal bowel movements reported Genitourinary: no new onset incontinence Musculoskeletal: Bilateral hip pain Psychiatric: normal mood/ affect, Neurological: [denies new onset weakness in extremities], [denies new onset balance issues] Objective:: Physical Exam General: Alert and oriented x3, no acute distress, pleasant and cooperative, [on room air] Lungs: Resps E/U, Symmetrical chest expansion, Eyes: PERRL Musculoskeletal: Flexion and extension of lumbar spine somewhat guarded secondary to pain decreased range of motion bilateral hips deep tendon reflexes normal, strength in upper and lower extremities [5/5], [abnormal gait noted] Neurological: speech clear, roller die cutting machine operator equal, no gross sensory deficits Assessment:: Bilateral hip osteoarthritis Plan:: Given the efficacy of these injections we will continue them and schedule him for a repeat bilateral intra-articular hip injection. He is been instructed to call the office if he has any issues prior to his next appointment. Dr. Gallegos has reviewed this note and agrees with this plan of care. This note was dictated using voice recognition software and may contain errors or omissions [facility] History I have reviewed the patient's past medical history: Yes Medical History: Reports:: Atrial Fibrillation, Hypertension Denies:: Cancer, Diabetes Mellitus Type 1, Diabetes Mellitus Type 2, Internal Pacemaker, MRSA, Seizures *Have you ever received a pneumonia vaccine?: Yes *Have you received a flu vaccine this season?: No Other Medical History: Reports: Arthritis, Sinus Problems. Denies: Blood Transfusion Reaction Other Surgeries: Yes: Cardiac Catheterization. No: Pacemaker Amputation: No Fractures: No - *Social History Smoking Status: Never smoker Tobacco Type: cigarettes Alcohol Intake: current Alcohol Intake Frequency:: 0-2 drinks per day *Occupational Status:: other Housing: house Household Members: none *Travel in the last 8 weeks: None Family Hx:: Cancer, Diabetes, Hyperlipidemia, Hypertension
--- NOTE | 2019-01-25 12:38 | P.CONS_ITS ---
[facility] Pain Management SOAP Note Subjective:: Patient is a pleasant 78-year-old white male who we are treating for bilateral hip pain. Patient following up after his intra-articular hip injections. Patient does extremely well with this getting up to 70% relief and increased functionality. He would like to repeat this. He is continuing his anti- inflammatories and home stretching program. ROS General: no recent weight change, no fever, no sleep disturbances Respiratory: no cough, no shortness of air, no recurring pulmonary infections Cardiovascular/Peripheral Vascular: No chest pain, No palpitations, no edema, no shortness of breath. Gastrointestinal: no new onset incontinence, normal bowel movements reported Genitourinary: no new onset incontinence Musculoskeletal: Bilateral hip pain Psychiatric: normal mood/ affect, Neurological: [denies new onset weakness in extremities], [denies new onset balance issues] Objective:: Physical Exam General: Alert and oriented x3, no acute distress, pleasant and cooperative, [on room air] Lungs: Resps E/U, Symmetrical chest expansion, Eyes: PERRL Musculoskeletal: Flexion and extension of lumbar spine somewhat guarded secondary to pain decreased range of motion bilateral hips deep tendon reflexes normal, strength in upper and lower extremities [5/5], [abnormal gait noted] Neurological: speech clear, bakery 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 He is been instructed to call the office if he has any issues prior to his next appointment. Dr. Gallegos has reviewed this note and agrees with this plan of care. This note was dictated using voice recognition software and may contain errors or omissions [facility] History I have reviewed the patient's past medical history: Yes Medical History: Reports:: Atrial Fibrillation, Hypertension Denies:: Cancer, Diabetes Mellitus Type 1, Diabetes Mellitus Type 2, Internal Pacemaker, MRSA, Seizures *Have you ever received a pneumonia vaccine?: Yes *Have you received a flu vaccine this season?: No Other Medical History: Reports: Arthritis, Sinus Problems. Denies: Blood Transfusion Reaction Other Surgeries: Yes: Cardiac Catheterization. No: Pacemaker Amputation: No Fractures: No - *Social History Smoking Status: Never smoker Tobacco Type: cigarettes Alcohol Intake: current Alcohol Intake Frequency:: 0-2 drinks per day *Occupational Status:: other Housing: house Household Members: none *Travel in the last 8 weeks: None Family Hx:: Cancer, Diabetes, Hyperlipidemia, Hypertension
== END ==
PROVIDERS: PCP Family Medicine; Visit Provider Clinical Nurse Specialist Family Health
DX: M16.0 Bilateral primary osteoarthritis of hip (principal)
CPT/HCPCS: 99212

== ENCOUNTER → 2019-03-01 09:13 | Outpatient (POV) | payer MEDICARE, BC, SELFPAY ==
[2019-03-01 09:29] VITALS: BP 142/89; PULSE 78; RESP 18; O2SAT 98; BMI 34.1
--- NOTE | 2019-03-01 10:16 | HMH.PAINSOAP ---
[facility] Pain Management SOAP Note Subjective:: Patient is a pleasant 79-year-old white male who presents today for follow-up after bilateral intra-articular hip injections. Patient has been getting these about every 6 weeks and does well with them. Patient is trying to stave off bilateral hip replacement. He rates his pain today an 8 out of 10 patient would like to continue with this routine. He states he gets up to 80% relief with these injections. Patient is unable to take anti-inflammatories due to Coumadin use. ROS General: no recent weight change, no fever, no sleep disturbances Respiratory: no cough, no shortness of air, no recurring pulmonary infections Cardiovascular/Peripheral Vascular: No chest pain, No palpitations, no edema, no shortness of breath. Gastrointestinal: no new onset incontinence, normal bowel movements reported Genitourinary: no new onset incontinence Musculoskeletal: Bilateral hip pain Psychiatric: normal mood/ affect Neurological: [denies new onset weakness in extremities], [denies new onset balance issues] Objective:: Physical Exam General: Alert and oriented x3, no acute distress, pleasant and cooperative, [on room air] Lungs: Resps E/U, Symmetrical chest expansion, Eyes: PERRL Musculoskeletal: Flexion and extension of lumbar spine somewhat guarded secondary to pain, deep tendon reflexes normal, strength in upper and lower extremities [5/5], [abnormal gait noted] decreased range of motion bilateral hips Neurological: speech clear, vp revenue cycle equal, no gross sensory deficits Assessment:: Bilateral hip pain, degenerative joint disease Plan:: We will continue with a bilateral intra-articular hip injection given the efficacy of this in the past. I believe it would be beneficial. Patient's been instructed to call the office if he has any issues prior to his next appointment. Dr. Gallegos has reviewed this note and agrees with this plan of care. This note was dictated using voice recognition software and may contain errors or omissions [facility] History I have reviewed the patient's past medical history: Yes Medical History: Reports:: Atrial Fibrillation, Hypertension Denies:: Cancer, Diabetes Mellitus Type 1, Diabetes Mellitus Type 2, Internal Pacemaker, MRSA, Seizures *Have you ever received a pneumonia vaccine?: Yes *Have you received a flu vaccine this season?: Yes Other Medical History: Reports: Arthritis, Sinus Problems. Denies: Blood Transfusion Reaction Other Surgeries: Yes: Cardiac Catheterization. No: Pacemaker Amputation: No Fractures: No - *Social History Smoking Status: Former smoker Tobacco Type: cigarettes Alcohol Intake: current Alcohol Intake Frequency:: a few times a week *Occupational Status:: other Housing: house Household Members: none *Travel in the last 8 weeks: None Family Hx:: Cancer, Diabetes, Hyperlipidemia, Hypertension
== END ==
PROVIDERS: PCP Family Medicine; Visit Provider Clinical Nurse Specialist Family Health
DX: M19.90 Unspecified osteoarthritis, unspecified site (principal); M25.551 Pain in right hip; M25.552 Pain in left hip
CPT/HCPCS: 99212

== ENCOUNTER → 2019-04-06 08:37 | Outpatient (CLI) | payer MEDICARE, BC, SELFPAY ==
--- NOTE | 2019-04-06 08:48 | CA_ITS ---
APPROVED REPORT Business Executive: Lou Palacios RVT Laterality: Bilateral Study Quality: Good Indications: PVD,Claudication, Pt had KAREN in Nov 2018 (0.9) Risk Factors Hypertension Hyperlipidemia TIA/CVA History Medications Coumadin VELOCITY AND DOPPLER WAVEFORM ANALYSIS RIGHT cm/sec Waveform Severity BREAKDOWN PERSON 67.3/ PFA 37.4/ Prox SFA 83.1/ Mid SFA 72.6/ Dis SFA 51.9/ Post Tibial 68.7/ Ant Tib/Dors Ped 50.1/ Peroneal 29.1/ LEFT cm/sec Waveform Severity BREAKDOWN PERSON 93.7/ PFA 35.9/ Prox SFA 95.7/ Mid SFA 74.9/ Dis SFA 68.8/ Post Tibial 44.8/ Ant Tib/Dors Ped 49.5/ Peroneal 37.8/ Findings Study suggests no evidence of stenosis of the bilateral lower extremities. Conclusion No significant elevation of the peak systolic velocity is seen in either lower extremity to suggest a hemodynamically significant stenosis. Electronically signed by : Jerry Perry MD 04/06/2019 16:13:27
== END ==
PROVIDERS: PCP Family Medicine; Visit Provider Surgery Vascular Surgery
DX: I73.9 Peripheral vascular disease, unspecified (principal)
CPT/HCPCS: 93925

== ENCOUNTER → 2019-04-19 09:53 | Outpatient (POV) | payer MEDICARE, BC, SELFPAY ==
[2019-04-19 10:35] VITALS: BP 132/87; PULSE 64; RESP 18; O2SAT 99; BMI 33.8
--- NOTE | 2019-04-19 11:00 | P.CONS_ITS ---
[facility] Pain Management SOAP Note Subjective:: Patient is a 79-year-old white male who presents today for follow-up after bilateral hip injections. Patient is in need of bilateral hip replacements however he is trying to avoid this. Patient states he does well with the injections rating his pain a 0 out of 10 today however with activity gets up to 8 out of 10. Patient and I had a discussion in regards to the amount of injections he is receiving. He would like to continue. Patient continues a home stretching program. ROS General: no recent weight change, no fever, no sleep disturbances Respiratory: no cough, no shortness of air, no recurring pulmonary infections Cardiovascular/Peripheral Vascular: No chest pain, No palpitations, no edema, no shortness of breath. Gastrointestinal: no new onset incontinence, normal bowel movements reported Genitourinary: no new onset incontinence Musculoskeletal: Bilateral hip pain Psychiatric: normal mood/ affect Neurological: [denies new onset weakness in extremities], [denies new onset balance issues] Objective:: Physical Exam General: Alert and oriented x3, no acute distress, pleasant and cooperative, [on room air] Lungs: Resps E/U, Symmetrical chest expansion, Eyes: PERRL Musculoskeletal: Flexion and extension of lumbar spine somewhat guarded s econdary to pain, deep tendon reflexes normal, strength in upper and lower extremities [5/5], [abnormal gait noted] Neurological: speech clear, speeder tender equal, no gross sensory deficits Assessment:: Degenerative osteoarthritis bilateral hips Plan:: We will set him up for bilateral intra-articular hip injections. Patient's been instructed to call the office if he has any issues prior to his next visit. Dr. Gallegos has reviewed this note and agrees with this plan of care. This note was dictated using voice recognition software and may contain errors or omissions [facility] History I have reviewed the patient's past medical history: Yes Medical History: Reports:: Atrial Fibrillation, Hypertension Denies:: Cancer, Diabetes Mellitus Type 1, Diabetes Mellitus Type 2, Internal Pacemaker, MRSA, Seizures *Have you ever received a pneumonia vaccine?: Yes *Have you received a flu vaccine this season?: Yes Other Medical History: Reports: Arthritis, Sinus Problems. Denies: Blood Transfusion Reaction Other Surgeries: Yes: Cardiac Catheterization. No: Pacemaker Amputation: No Fractures: No - *Social History Smoking Status: Former smoker Tobacco Type: cigarettes Alcohol Intake: never Alcohol Intake Frequency:: a few times a week *Occupational Status:: other Housing: house Household Members: none *Travel in the last 8 weeks: None Family Hx:: Cancer, Diabetes, Hyperlipidemia, Hypertension
== END ==
PROVIDERS: PCP Family Medicine; Visit Provider Clinical Nurse Specialist Family Health
DX: M16.0 Bilateral primary osteoarthritis of hip; I48.91 Unspecified atrial fibrillation; I10 Essential (primary) hypertension; M19.90 Unspecified osteoarthritis, unspecified site; Z87.891 Personal history of nicotine dependence; Z80.9 Family history of malignant neoplasm, unspecified; Z83.438 Family history of other disorder of lipoprotein metabolism and other lipidemia; Z82.49 Family history of ischemic heart disease and other diseases of the circulatory system
CPT/HCPCS: 99212

== ENCOUNTER → 2019-05-24 09:37 | Outpatient (POV) | payer MEDICARE, BC, SELFPAY ==
--- NOTE | 2019-05-24 10:15 | P.CONS_ITS ---
[facility] Pain Management SOAP Note Subjective:: Patient is a very pleasant 79-year-old white male who presents today for follow- up after bilateral hip injections. Patient gets these every several months. Patient states that he understands the risks of continuing throat injections including bone deterioration. But he would like to continue with this instead of surgical options at this time. Patient has no pain when sitting he does have pain at times with standing. Patient is continuing a home stretching program and is trying to stay as active as possible. ROS General: no recent weight change, no fever, no sleep disturbances Respiratory: no cough, no shortness of air, no recurring pulmonary infections Cardiovascular/Peripheral Vascular: No chest pain, No palpitations, no edema, no shortness of breath. Gastrointestinal: no new onset incontinence, normal bowel movements reported Genitourinary: no new onset incontinence Musculoskeletal: Bilateral hip pain Psychiatric: normal mood/ affect Neurological: [denies new onset weakness in extremities], [denies new onset balance issues] Objective:: Physical Exam General: Alert and oriented x3, no acute distress, pleasant and cooperative, [on room air] Lungs: Resps E/U, Symmetrical chest expansion, Eyes: PERRL Musculoskeletal: Flexion and extension of lumbar spine somewhat guarded secondary to pain, deep tendon reflexes normal, strength in upper and lower extremities [5/5], tenderness over bilateral hips, slightly antalgic gait noted Neurological: speech clear, manager federal equal, no gross sensory deficits Assessment:: Degenerative osteoarthritis bilateral hips Plan:: We will schedule him for bilateral hip injections in the future. Patient's been instructed call the office if he has any issues prior to his next appointment. Dr. Gallegos has reviewed this note and agrees with this plan of care. This note was dictated using voice recognition software and may contain errors or omissions [facility] History I have reviewed the patient's past medical history: Yes Medical History: Reports:: Atrial Fibrillation, Hypertension Denies:: Cancer, Diabetes Mellitus Type 1, Diabetes Mellitus Type 2, Internal Pacemaker, MRSA, Seizures *Have you ever received a pneumonia vaccine?: No *Have you received a flu vaccine this season?: No Other Medical History: Reports: Arthritis, Sinus Problems. Denies: Blood Transfusion Reaction Other Surgeries: Yes: Cardiac Catheterization. No: Pacemaker Amputation: No Fractures: No - *Social History Smoking Status: Former smoker Tobacco Type: cigarettes Alcohol Intake: current Alcohol Intake Frequency:: holidays/special occasions only *Occupational Status:: other Housing: house Household Members: none *Travel in the last 8 weeks: None Family Hx:: Cancer, Diabetes, Hyperlipidemia, Hypertension
[2019-05-24 10:44] VITALS: BP 128/83; PULSE 59; RESP 18; O2SAT 99; BMI 33.8
== END ==
PROVIDERS: PCP Family Medicine; Visit Provider Clinical Nurse Specialist Family Health
DX: M16.0 Bilateral primary osteoarthritis of hip (principal)
CPT/HCPCS: 99212

== ENCOUNTER 2019-07-09 08:41 | Day surgery (SDC) | payer MEDICARE, BC, SELFPAY ==
[2019-07-09 08:52] VITALS: BP 142/52; PULSE 60; RESP 18; TEMP 36.5; O2SAT 99; BMI 34.4
[2019-07-09 09:07] VITALS: BP 130/85; PULSE 55; RESP 18
[2019-07-09 09:08] VITALS: BP 129/84; PULSE 52; RESP 18; O2SAT 98
--- NOTE | 2019-07-09 09:13 | P.PCN_ITS ---
- Procedure Date: 07/09/19 Time: 09:13 Anesthesiologist:: Yariel Gallegos MD Complications:: None Pre-procedure Diagnosis:: Bilateral degenerative osteoarthritis both hips Post-procedure Diagnosis:: Same Indications for Procedure:: This patient is a pleasant 79-year-old white male who we have been treating for bilateral hip pain. He has degenerative osteoarthritis of both hips. He last h ad bilateral intra-articular hip injections almost 3 months ago. He was doing very well from these up until recently. His hip pain has increased dramatically. This is affecting his activities of daily living. He has increased pain affecting functionality. In order to keep him out of the emergency room in all 4 opioids we will do repeat bilateral intra-articular hip injections today. Procedure Details:: Bilateral intra-articular hip injections Informed consent was obtained risk and benefits of the procedure were explained the patient. Patient was taken to the procedure room. Both hips were prepped using ChloraPrep. A 22-gauge spinal needle was inserted into the hip joint on the left side first. Needle placement was confirmed with dye. After this we injected 5 mL bupivacaine 0.25% Depo-Medrol 40 mg. We did the same for the right side. Again advancing a 22-gauge spinal needle into the right hip joint. Needle placement again was confirmed with dye. We then injected 5 mL bupivacaine 0.25% Depo-Medrol 40 mg into the right hip. Patient tolerated the procedure well with no complications. Plan and Disposition:: We will follow-up with him in 2 weeks. Will reevaluate his symptoms at that time.
[2019-07-09 09:21] VITALS: BP 123/69; PULSE 57; RESP 18; O2SAT 99
== END 2019-07-09 09:22 | disposition home or self-care (01) ==
LOC: SC.PAINP 08:43
PROVIDERS: PCP Family Medicine; Visit Provider Anesthesiology
DX: M16.0 Bilateral primary osteoarthritis of hip (principal); I10 Essential (primary) hypertension; I48.91 Unspecified atrial fibrillation; Z80.9 Family history of malignant neoplasm, unspecified; Z83.3 Family history of diabetes mellitus; Z82.49 Family history of ischemic heart disease and other diseases of the circulatory system; Z87.891 Personal history of nicotine dependence
CPT/HCPCS: 20610; 77002; J1030; Q9966

== ENCOUNTER → 2019-07-26 10:18 | Outpatient (POV) | payer MEDICARE, BC, SELFPAY ==
[2019-07-26 10:33] VITALS: BP 138/87; PULSE 97; RESP 18; TEMP 36.6; O2SAT 99; BMI 34.4
--- NOTE | 2019-07-26 11:10 | HMH.PAINSOAP ---
[facility] Pain Management SOAP Note Subjective:: Patient is a pleasant 79-year-old white male who presents today for follow-up after his bilateral hip injections overall is doing well. Patient rates his pain a 0 out of 10 when he sitting 6 out of 10 when he is walking. Patient would like to repeat this in several weeks. ROS General: no recent weight change, no fever, no sleep disturbances Respiratory: no cough, no shortness of air, no recurring pulmonary infections Cardiovascular/Peripheral Vascular: No chest pain, No palpitations, no edema, no shortness of breath. Gastrointestinal: no new onset incontinence, normal bowel movements reported Genitourinary: no new onset incontinence Musculoskeletal: Bilateral hip pain Psychiatric: normal mood/ affect, [denies depression], [denies anxiety] Neurological: [denies new onset weakness in extremities], [denies new onset balance issues] Objective:: Physical Exam General: Alert and oriented x3, no acute distress, pleasant and cooperative, [on room air] Lungs: Resps E/U, Symmetrical chest expansion, Eyes: PERRL Musculoskeletal: Flexion and extension of lumbar spine somewhat guarded secondary to pain, deep tendon reflexes normal, strength in upper and lower extremities [5/5], [abnormal gait noted] Neurological: speech clear, polygraph operator equal, no gross sensory deficits Assessment:: Bilateral hip osteoarthritis Plan:: We will schedule bilateral intra-articular hip injections in several weeks. He has been instructed to call the office if he has any issues prior to his next appointment. We specifically discussed risk factors for Covid-19 including age, heart or lung disease, diabetes, immunosuppression and travel. We also discussed that NSAIDs may worsen Covid-19 infection symptoms and that they should not be used to treat Covid-19 symptoms. Patient was also informed that corticosteroids in any form oral or injectable will decrease immune response and may increase risk of Covid-[address] Gallegos has reviewed this patient's chart and this note and agrees with plan of care. Patient has been instructed to call the office if they have any issues prior to the next appointment. [facility] History I have reviewed the patient's past medical history: Yes Medical History: Reports:: Atrial Fibrillation, Hypertension Denies:: Cancer, Diabetes Mellitus Type 1, Diabetes Mellitus Type 2, Internal Pacemaker, MRSA, Seizures *Have you ever received a pneumonia vaccine?: Yes *Have you received a flu vaccine this season?: Yes Other Medical History: Reports: Arthritis, Sinus Problems. Denies: Blood Transfusion Reaction Other Surgeries: Yes: Cardiac Catheterization. No: Pacemaker Amputation: No Fractures: No - *Social History Smoking Status: Former smoker Tobacco Type: cigarettes Alcohol Intake: never Alcohol Intake Frequency:: holidays/special occasions only *Occupational Status:: other Housing: house Household Members: none *Travel in the last 8 weeks: None Family Hx:: Cancer, Diabetes, Hyperlipidemia, Hypertension
== END ==
PROVIDERS: PCP Family Medicine; Visit Provider Clinical Nurse Specialist Family Health
DX: M16.0 Bilateral primary osteoarthritis of hip (principal)
CPT/HCPCS: 99212

== ENCOUNTER 2019-09-03 09:09 | Day surgery (SDC) | payer MEDICARE, BC, SELFPAY ==
[2019-09-03 09:16] VITALS: BP 120/81; PULSE 70; RESP 18; O2SAT 97; BMI 34.4
[2019-09-03 09:42] VITALS: BP 141/74; PULSE 85; RESP 18
[2019-09-03 09:43] VITALS: BP 140/74; PULSE 78; RESP 18; O2SAT 97
--- NOTE | 2019-09-03 09:52 | HMH.PMPROC ---
- Procedure Date: 09/03/19 Time: 09:52 Anesthesiologist:: Yariel Gallegos MD Complications:: None Pre-procedure Diagnosis:: Bilateral hip pain with degenerative osteoarthritis both hips Post-procedure Diagnosis:: Same Indications for Procedure:: This patient is a pleasant 79-year-old white male who we are treating for bilateral hip pain with degenerative osteoarthritis both hips. He is done well with previous injections. This is allowed him to be more active. His pain is starting to return over both hips. We will do repeat bilateral intra-articular hip injections today to help him with his pain symptoms. Procedure Details:: Bilateral intra-articular hip injections Informed consent was obtained and the risk and benefits of the procedure were explained to the patient. Patient was taken to the procedure room. Both hips was prepped using ChloraPrep. A 22-gauge spinal needle was inserted and advanced first into the left hip and then into the right hip. Needle placement was confirmed with dye and fluoroscopic guidance. We then injected 5 mL bupivacaine 0.25% Depo-Medrol 40 mg into each hip. We used a total of 80 mg Depo-Medrol for both hips. The patient tolerated the procedure well with no complications. Plan and Disposition:: We will follow-up with him in 2 weeks. Will reevaluate his symptoms at that time.
[2019-09-03 10:20] VITALS: BP 139/87; PULSE 70; RESP 20; O2SAT 97
== END 2019-09-03 10:20 | disposition home or self-care (01) ==
LOC: SC.PAINP 09:10
PROVIDERS: PCP Family Medicine; Visit Provider Anesthesiology
DX: M16.0 Bilateral primary osteoarthritis of hip (principal); I10 Essential (primary) hypertension; I48.91 Unspecified atrial fibrillation; Z87.891 Personal history of nicotine dependence; Z82.49 Family history of ischemic heart disease and other diseases of the circulatory system; Z83.438 Family history of other disorder of lipoprotein metabolism and other lipidemia
CPT/HCPCS: 20610; 77002; J1030; Q9966

== ENCOUNTER → 2019-09-21 10:37 | Outpatient (POV) | payer MEDICARE, BC, SELFPAY ==
[2019-09-21 10:55] VITALS: BP 104/65; PULSE 73; RESP 18; O2SAT 98; BMI 33.8
--- NOTE | 2019-09-21 11:04 | HMH.PAINSOAP ---
[facility] Pain Management SOAP Note Subjective:: Patient is a pleasant 79-year-old white male who presents today for follow-up patient gets bilateral intra-articular hip injections for degenerative osteoarthritis in both hips. We have discussed on multiple occasions the potential harm that steroids have in regards to this patient would like to continue on stating that he does not want to have a hip replacement at this time. He rates his pain an 8 out of 10 when he is walking a 0 out of 10 when sitting. He would like to be set up in 7 to 8 weeks for his next round of injections. ROS General: no recent weight change, no fever, no sleep disturbances Respiratory: no cough, no shortness of air, no recurring pulmonary infections Cardiovascular/Peripheral Vascular: No chest pain, No palpitations, no edema, no shortness of breath. Gastrointestinal: no new onset incontinence, normal bowel movements reported Genitourinary: no new onset incontinence Musculoskeletal: Bilateral hip pain Psychiatric: normal mood/ affect Neurological: [denies new onset weakness in extremities], [denies new onset balance issues] Objective:: Physical Exam General: Alert and oriented x3, no acute distress, pleasant and cooperative, [on room air] Lungs: Resps E/U, Symmetrical chest expansion, Eyes: PERRL Musculoskeletal: Flexion and extension of lumbar spine somewhat guarded secondary to pain, deep tendon reflexes normal, strength in upper and lower extremities [5/5], [abnormal gait noted] Neurological: speech clear, import coordinator equal, no gross sensory deficits Assessment:: Bilateral hip pain with degenerative osteoarthritis both hips Plan:: We will set the patient up for bilateral intra-articular hip injections in 7 weeks reassess his symptoms at that time he has been instructed to call the office if he has any issues prior to his next appointment. Dr. Gallegos has reviewed this note and agrees with this plan of care. This note was dictated using voice recognition software and may contain errors or omissions [facility] History I have reviewed the patient's past medical history: Yes Medical History: Reports:: Atrial Fibrillation, Hypertension Denies:: Cancer, Diabetes Mellitus Type 1, Diabetes Mellitus Type 2, Internal Pacemaker, MRSA, Seizures *Have you ever received a pneumonia vaccine?: Yes *Have you received a flu vaccine this season?: Yes Other Medical History: Reports: Arthritis, Sinus Problems. Denies: Blood Transfusion Reaction Other Surgeries: Yes: Cardiac Catheterization. No: Pacemaker Amputation: No Fractures: No - *Social History Smoking Status: Former smoker Tobacco Type: cigarettes Alcohol Intake: never Alcohol Intake Frequency:: holidays/special occasions only *Occupational Status:: other Housing: house Household Members: none *Travel in the last 8 weeks: None Family Hx:: Cancer, Diabetes, Hyperlipidemia, Hypertension
== END ==
PROVIDERS: PCP Family Medicine; Visit Provider Clinical Nurse Specialist Family Health
DX: M16.0 Bilateral primary osteoarthritis of hip
CPT/HCPCS: 99212

== ENCOUNTER 2019-11-12 10:53 | Day surgery (SDC) | payer MEDICARE, BC, SELFPAY ==
[2019-11-12 11:08] VITALS: BP 144/99; PULSE 75; RESP 18; TEMP 36.7; O2SAT 97; BMI 34.5
[2019-11-12 13:07] VITALS: BP 142/78; PULSE 84; RESP 18; O2SAT 98
[2019-11-12 13:08] VITALS: BP 141/77; PULSE 74; RESP 18; O2SAT 98
--- NOTE | 2019-11-12 13:12 | HMH.PMPROC ---
- Procedure Date: 11/12/19 Time: 13:12 Anesthesiologist:: Yariel Gallegos MD Complications:: None Pre-procedure Diagnosis:: Bilateral hip pain with degenerative osteoarthritis both hips Post-procedure Diagnosis:: Same Indications for Procedure:: Patient is a pleasant 79-year-old white male who we are treating for bilateral hip pain with degenerative osteoarthritis both hips. He is doing well with intra-articular hip injections. He is holding off on hip replacement at this time however his intra-articular surface is [id number]. We will do bilateral intra-articular hip injections today to help with his pain symptoms. Procedure Details:: Bilateral intra-articular hip injection Informed consent was obtained and the risk and benefits of the procedure were explained to the patient. Patient was taken to the procedure room. Both hips were prepped using ChloraPrep. A 22-gauge spinal needle was inserted first in the left hip and in the right hip. Needle placement was confirmed with dye. We then injected 5 mL bupivacaine 0.25% and Depo-Medrol 40 mg into each hip. The patient tolerated the procedure well with no complications. Plan and Disposition:: We will follow-up with him in 2 weeks. Will reevaluate symptoms at that time.
[2019-11-12 13:20] VITALS: BP 138/93; PULSE 66; RESP 20; O2SAT 97
== END 2019-11-12 13:21 | disposition home or self-care (01) ==
LOC: SC.PAINP 10:56
PROVIDERS: PCP Family Medicine; Visit Provider Anesthesiology
DX: M16.0 Bilateral primary osteoarthritis of hip (principal); I10 Essential (primary) hypertension; K21.9 Gastro-esophageal reflux disease without esophagitis; Z86.79 Personal history of other diseases of the circulatory system; Z79.01 Long term (current) use of anticoagulants; Z79.899 Other long term (current) drug therapy
CPT/HCPCS: 20610; 77002; J1030; Q9966

== ENCOUNTER → 2019-12-02 09:06 | Outpatient (POV) | payer MEDICARE, BC, SELFPAY ==
[2019-12-02 09:25] VITALS: BP 102/73; PULSE 70; RESP 18; TEMP 36.7; O2SAT 98; BMI 34.2
--- NOTE | 2019-12-02 09:39 | P.CONS_ITS ---
[facility] Pain Management SOAP Note Subjective:: Patient is a pleasant 79-year-old white male who presents today for follow-up. He has been treated for bilateral hip pain with degenerative osteoarthritis both hips. Patient says he gets approximately percent relief with the injections for up to 2 to 3 weeks. He usually schedules bilateral intra-articular hip injections every 6 to 8 weeks. He has been trying to hold off on hip replacement at this time however, his intra-articular surface is [id number]. He would like to schedule the injections again. He rates his pain an 8 out of 10. He says his pain is worse when he is walking. He says sitting does not cause him any pain. He rates his pain a 5 out of 10 today. Review of Systems General: No recent weight changes, no fever, no sleep disturbances Respiratory: No cough, no shortness of air, no recurring pulmonary infections Cardiovascular/peripheral vascular: No chest pain, no palpitations, no edema, no shortness of breath Gastrointestinal: No new onset incontinence, normal bowel movements reported Genitourinary: No new onset incontinence Musculoskeletal: Bilateral hip pain Psychiatric: Normal mood/affect Neurological: [Denies weakness in extremities], [denies balance issues] Objective:: Physical exam General: Alert and oriented x3, no acute distress, pleasant and cooperative, [on room air] Lungs: Respirations even and unlabored, symmetrical chest expansion Eyes: PERRL Musculoskeletal: Flexion and extension of lumbar spine somewhat guarded secondary to pain, deep tendon reflexes normal, strength in upper and lower extremities [5/5], [abnormal gait noted] Neurological: Speech clear, salt grinder equal, no gross sensory deficit Assessment:: Bilateral hip pain with degenerative osteoarthritis bilateral hips Plan:: We will schedule the patient for bilateral intra-articular hip injections. We will see him back afterwards to reassess his symptoms. He has been instructed to contact clinic if he has any concerns for his next appointment. The patient and I specifically discussed risk factors for COVID19. These risks include, but are not limited to age greater than 60, heart or lung disease, diabetes, immunosuppression, and travel. We also discussed NSAIDs may worsen COVID19 infection or symptoms. Patient should not use NSAIDs to treat COVID19 signs or symptoms. Patient was also informed that any type of corticosteroid of any form (oral or injection) will decrease the patient's immune system response and may increase the likelihood of COVID19 infection and symptoms[address] Dr. Gallegos has reviewed this note and agrees with this plan of care. This note was dictated using voice recognition software and make contain errors or omissions. [facility] History I have reviewed the patient's past medical history: Yes Medical History: Reports:: Atrial Fibrillation, Hypertension Denies:: Cancer, Diabetes Mellitus Type 1, Diabetes Mellitus Type 2, Internal Pacemaker, MRSA, Seizures *Have you ever received a pneumonia vaccine?: Yes *Have you received a flu vaccine this season?: Yes Other Medical History: Reports: Arthritis, Sinus Problems. Denies: Blood Transfusion Reaction Other Surgeries: Yes: Cardiac Catheterization. No: Pacemaker Amputation: No Fractures: No - *Social History Smoking Status: Former smoker Tobacco Type: cigarettes Alcohol Intake: never Alcohol Intake Frequency:: holidays/special occasions only *Occupational Status:: other Housing: house Household Members: none *Travel in the last 8 weeks: None Family Hx:: Cancer, Diabetes, Hyperlipidemia, Hypertensio
== END ==
PROVIDERS: PCP Family Medicine; Visit Provider Clinical Nurse Specialist Family Health
DX: M16.0 Bilateral primary osteoarthritis of hip (principal)
CPT/HCPCS: 99212

== ENCOUNTER 2019-12-24 09:59 | Day surgery (SDC) | payer MEDICARE, BC, SELFPAY ==
[2019-12-24 11:32] VITALS: BP 135/94; PULSE 77; RESP 18; O2SAT 99; BMI 33.8
[2019-12-24 11:41] VITALS: BP 140/74; PULSE 85; RESP 18
[2019-12-24 11:42] VITALS: BP 138/74; PULSE 79; RESP 18; O2SAT 98
--- NOTE | 2019-12-24 11:44 | HMH.PMPROC ---
- Procedure Date: 12/24/19 Time: 11:44 Anesthesiologist:: Yariel Gallegos MD Complications:: None Pre-procedure Diagnosis:: Bilateral hip intra-articular injections Post-procedure Diagnosis:: Same Indications for Procedure:: This patient is a pleasant 79-year-old white male who we have been treating for bilateral hip pain. We have been doing intra-articular hip injections for his bilateral osteoarthritis of both hips. He does very well with these injections for several weeks. Previously had been getting these injections every 6 to 8 weeks. I have talked to him about spreading these injections more like every 10 to 12 weeks. We will do bilateral intra-articular hip injections today. We will plan on doing his next injection in approximately 10 weeks. Procedure Details:: Bilateral hip intra-articular injection Informed consent was obtained and the risk and benefits of the procedure were explained to the patient. Patient was taken to the procedure room. Both hips were prepped using ChloraPrep. A 22-gauge needle was inserted and advanced into both hip joints. Needle placement was confirmed with dye. Each hip was then injected with 10 mL bupivacaine 0.25% and Depo-Medrol 40 mg. Patient tolerated the procedure well with no complications. Plan and Disposition:: We will follow-up with him in 2 weeks. Will reevaluate symptoms at that time.
[2019-12-24 11:51] VITALS: BP 141/89; PULSE 70; RESP 20; O2SAT 99
== END 2019-12-24 11:52 | disposition home or self-care (01) ==
LOC: SC.PAINP 10:01
PROVIDERS: PCP Family Medicine; Visit Provider Anesthesiology
DX: M16.0 Bilateral primary osteoarthritis of hip (principal); I10 Essential (primary) hypertension; K21.9 Gastro-esophageal reflux disease without esophagitis; E78.5 Hyperlipidemia, unspecified; Z79.01 Long term (current) use of anticoagulants; Z79.899 Other long term (current) drug therapy
CPT/HCPCS: 20610; 77002; J1030; Q9966

== ENCOUNTER 2020-03-07 15:26 | Inpatient (IN) | payer MEDICARE, BC, SELFPAY ==
[2020-03-07] VITALS (7 sets, daily range): BP systolic 87–136; BP diastolic 64–89; PULSE 64–87; RESP 16–20; TEMP 36.6–36.8; O2SAT 90–96; BMI 34.8; BMI 33.5; BMI 31.6
--- NOTE | 2020-03-07 15:31 | XR_ITS ---
PROCEDURE: XR HIP RT 2-3V W/PELVIS CLINICAL INDICATION: fall Posttraumatic pain COMPARISON: DX HIPCMLT XR hip LT 2-3V w/pelvis from 07/21/2017 DX HIPCMRT XR hip RT 2-3V w/pelvis from 07/21/2017 FINDINGS: Study is somewhat limited technically. There is a fracture of the lesser trochanter which is displaced medially approximately 1.5 cm. Intertrochanteric fracture is noted. This however is not well delineated. Osteoarthritic changes are present involving the hips. IMPRESSION: Intertrochanteric fracture with medial displacement of the lesser trochanter. Dictated by: Jerry Perry MD 03/07/2020 16:12 Jerry Perry MD in [facility] 03/07/2020 16:12
--- NOTE | 2020-03-07 15:37 | XR_ITS ---
PROCEDURE: XR CHEST PORTABLE CLINICAL HISTORY: fall posttraumatic pain COMPARISON: No exams were available for comparison FINDINGS: There is cardiomegaly without failure. Study is limited technically due to patient's body habitus. Increased density is present in the peripheral lung zone on the left but may be technical in nature. There are some mild atelectatic changes in the right lung base medially upright PA and lateral chest may provide further evaluation. No acute bony abnormalities. IMPRESSION: Cardiomegaly, mild atelectasis right lung base medially Dictated by: Jerry Perry MD 03/07/2020 16:04 Jerry Perry MD in [facility] 03/07/2020 16:04
--- NOTE | 2020-03-07 15:45 | PC.NURSE ---
Dr Poole speaking with Dr Mack
--- NOTE | 2020-03-07 15:55 | CT_ITS ---
PROCEDURE: CT HIP RT WO CON CLINICAL HISTORY: hip fracture Severe right hip pain following injury COMPARISON: No exams were available for comparison TECHNIQUE: Axial images obtained with sagittal and coronal reformats. All CT scans at the facility use one or more dose reduction, viz: automated exposure control, ma/kV adjustment per patient size (including targeted exams where dose is matched to indication, i.e. head), or iterative reconstruction technique. FINDINGS: There is an impacted and comminuted intertrochanteric fracture of the right femur. The lesser trochanter fragment is displaced medially by approximately 1.5 cm. The femoral head is located. Degenerative changes are present in the lower lumbar spine. There is fusion of the right SI joint. There is increased soft tissue density in the pericapsular region of the right hip consistent with effusion or hemarthrosis. IMPRESSION: Comminuted impacted intertrochanteric fracture of the right hip Dictated by: Jerry Perry MD 03/07/2020 18:25 Jerry Perry MD in [facility] 03/07/2020 18:25
--- NOTE | 2020-03-07 15:55 | CT_ITS ---
PROCEDURE: CT HEAD/BRAIN WO CON CLINICAL INDICATION: head injury Head injury with headache/pain, contusion, abrasion or hematoma COMPARISON: CT HDWO CT HEAD W/O CONTRAST from 03/10/2013 TECHNIQUE: Axial images obtained. All CT scans at the facility use one or more dose reduction, viz: automated exposure control, ma/kV adjustment per patient size (including targeted exams where dose is matched to indication, i.e. head), or iterative reconstruction technique. FINDINGS: There are encephalomalacia changes in the left occipital lobe and left cerebellum. No midline shift, mass effect, intracranial hemorrhage, or hydrocephalus is evident. There is mild mucosal thickening of the ethmoid sinuses. IMPRESSION: No acute intracranial finding Dictated by: Jerry Perry MD 03/07/2020 18:31 Jerry Perry MD in [facility] 03/07/2020 18:31
--- NOTE | 2020-03-07 16:07 | HMH.EDGENADL ---
ED Disposition Clinical Impression: Closed right hip fracture Qualifiers: Encounter type: initial encounter Qualified Code(s): S72.001A - Fracture of unspecified part of neck of right femur, initial encounter for closed fracture Disposition: Admitted As Inpatient Condition on Discharge: Fair - Critical Care Critical Care Time: No Attestation: On 03/07/20, the high probability of a clinically significant, sudden or life threatening deterioration of the following system(s) required my full and direct attention, intervention and personal management. The time I documented below is in addition to time spent performing reported procedures but includes the following listed in this critical care notation. Medical Decision Making - Medical Records Medical records reviewed: Yes: I reviewed the patient's medical records. MR Comment: Patient is seen in pain management here, gets injections into his prescription from Dr. Gallegos. - Lalit Inquiry Pt receiving controlled substance: Yes Lalit was queried for this patient: No Reason not queried -: Emergent pt cond-no time Risks and benefits of using a controlled substance: were not discussed with pt by me Vital Signs: 03/07/20 15:43 Temperature 97.9 F Temperature Source Oral Pulse Rate [Right Brachial] 64 Respiratory Rate 18 Blood Pressure [Right Arm] 100/70 L Blood Pressure Mean [Right Arm] 80 Blood Pressure Source [Right Arm] Automatic Cuff Blood Pressure Position [Right Arm] Supine 02 Sat by Pulse Oximetry 94 L Oxygen Delivery Method Room Air - Lab Data Lab results reviewed: Yes: I reviewed the patient's lab results. Lab Results 03/07/20 16:19: WBC 9.9, RBC 5.36, Hgb 14.3, Hct 45.9, MCV 85.5, MCH 26.7 L, MCHC 31.2 L, RDW 17.0, Plt Count 219, MPV 8.4, Neut % (Auto) 78.5, Lymph % (Auto) 13.6, Frio % (Auto) 7.0, Eos % (Auto) 0.3, Baso % (Auto) 0.5, Neut # (Auto) 7.8, Lymph # (Auto) 1.4, Frio # (Auto) 0.7, Eos # (Auto) 0.0, Baso # (Auto) 0.1 03/07/20 16:19: PT 20.0 H, INR 1.91 H 03/07/20 16:19: Sodium 138, Potassium 4.7, Chloride 109 H, Carbon Dioxide 25, Anion Gap 8.7, BUN 18, Creatinine 1.10, Estimated Creat Clear 85, Estimated GFR 65, Est GFR ( Amer) 78, Glucose 109 H, Calcium 8.4, Total Bilirubin 0.7, AST 41, ALT 17, Alkaline Phosphatase 89, Total Protein 6.3, Albumin 3.6, Globulin 2.7, Albumin/Globulin Ratio 1.3 03/07/20 16:19: SARS-CoV-2 IgG Ab (Rapid) Negative, SARS-CoV-2 IgM Ab (Rapid) Negative Result diagrams: 03/07/20 16:19 03/07/20 16:19 Orders (Tests/Meds): ED MEDICATIONS Discontinued Medications Generic Name Dose Route Start Last Admin Trade Name Freq PRN Reason Stop Dose Admin Hydromorphone HCl 0.5 mg 03/07/20 17:15 03/07/20 17:17 Hydromorphone 2mg/Ml Syringe IV 03/07/20 17:16 0.5 mg ONCE ONE Administration Sodium Chloride 1,000 mls @ 999 mls/hr 03/07/20 16:15 03/07/20 17:17 Sod Chlor 0.9% 1000ml Bag IV 03/07/20 17:15 999 mls/hr .Q1H1M MEIR Administration Morphine Sulfate 4 mg 03/07/20 15:54 03/07/20 15:56 Morphine 4mg/Ml Syringe IV 03/07/20 15:55 4 mg ONCE ONE Administration Morphine Sulfate 4 mg 03/07/20 15:57 03/07/20 16:02 Morphine 4mg/Ml Syringe IV 03/07/20 15:58 4 mg ONCE ONE Administration Ondansetron HCl 4 mg 03/07/20 15:54 03/07/20 15:55 Ondansetron 4mg/2ml Vial IV 03/07/20 15:55 4 mg ONCE ONE Administration Ondansetron HCl 4 mg 03/07/20 16:57 03/07/20 17:07 Ondansetron 4mg/2ml Vial IV 03/07/20 16:58 4 mg ONCE ONE Administration ORDERS Category Date Time Status CT cervical spine wo con Stat Cat Scan 03/07/20 16:[address] head/brain wo con Stat Cat Scan 03/07/20 15:[address] hip RT wo con Stat Cat Scan 03/07/20 15:55 Taken - Radiology Data #1 Image(s): Chest, Hip Image Reviewed: Yes I reviewed the patient's radiology image, Yes I have reviewed radiologist's interpretation PROCEDURE: XR CHEST PORTABLE CLINICAL HISTORY: fall posttraum
--- NOTE | 2020-03-07 16:08 | CT_ITS ---
PROCEDURE: CT CERVICAL SPINE WO CON CLINICAL INDICATION: fall Neck injury with pain, contusion/abrasion or hematoma, cervical sprain/strain the COMPARISON: No exams were available for comparison TECHNIQUE: Axial images obtained with sagittal and coronal reformats. All CT scans at the facility use one or more dose reduction, viz: automated exposure control, ma/kV adjustment per patient size (including targeted exams where dose is matched to indication, i.e. head), or iterative reconstruction technique. Axial spiral CT scanning performed of the cervical spine beginning at the base of the skull and continuing to the upper T-spine. 3-D multiplanar reconstruction with 3-D manipulation of volumetric data set in image rendering was completed by the radiologist and/or technologist with the supervision of the radiologist on independent workstation. FINDINGS: Normal alignment. No acute fracture or dislocation is evident. There is mild multilevel cervical spondylosis. C2-C3: 4 mm anterolisthesis of C2. C3-C4: Degenerate disc disease with bilateral foraminal and lateral recess narrowing. C4-C5: Degenerate disc disease with endplate hypertrophic changes eccentric toward the right with broad-based right paracentral and foraminal disc osteophyte complex causing severe right-sided foraminal narrowing right lateral recess narrowing and canal stenosis. C5-C6: Degenerate disc disease with endplate hypertrophic change and canal stenosis. C6-C7: Degenerative disc disease. C7-T1: Unremarkable. The lung apices are clear. Scattered small nodes are present in the neck IMPRESSION: 1. Multilevel cervical spondylosis as detailed above with lateral recess and foraminal narrowing and canal stenosis. Please see above for detailed description at each level. 2. No acute fracture Dictated by: Jerry Perry MD 03/07/2020 18:34 Jerry Perry MD in [facility] 03/07/2020 18:34
[2020-03-07 16:29] LABS: Basophils # 0.1 K/mm3 (0-0.2); Basophils % 0.5 % (0.1-2.0); Eosinophils % 0.3 % (0.1-12.0); Hematocrit 45.9 % (42.0-52.0); Hemoglobin 14.3 g/dL (14.1-18.0); Lymphocytes # 1.4 K/mm3 (0.7-4.5); Lymphocytes % 13.6 % (10-50); Mean Corpuscular HGB Conc 31.2 g/dL (31.8-35.4); Mean Corpuscular Hemoglobin 26.7 pg (27.0-31.2); Mean Corpuscular Volume 85.5 fl (80-94); Mean Platelet Volume 8.4 fl (7.4-10.4); Monocytes # 0.7 K/mm3 (0.1-1.0); Neutrophils # 7.8 K/mm3 (1.8-7.8); Neutrophils % 78.5 % (37.0-80.0); Platelet Count 219 K/mm3 (142-424); Red Blood Count 5.36 M/mm3 (4.60-6.20); White Blood Count 9.9 K/mm3 (4.8-10.8)
[2020-03-07 16:34] LABS: Chloride 109 mmol/L (98-107); Sodium 138 mmol/L (136-145)
[2020-03-07 16:35] LABS: Potassium 4.7 mmoL/L (3.5-5.1)
[2020-03-07 16:37] LABS: Alanine Aminotransferase 17 U/L (12-78); Albumin Level 3.6 g/dl (3.5-5.0); Albumin/Globulin Ratio 1.3 (1.1-1.8); Alkaline Phosphatase 89 U/L (38-126); Anion Gap 8.7 mEq/L (5-15); Aspartate Amino Transferase 41 U/L (17-59); Bilirubin,Total 0.7 mg/dl (0.2-1.3); Blood Urea Nitrogen 18 mg/dl (9-20); Calcium 8.4 mg/dl (8.4-10.2); Carbon Dioxide 25 mmol/L (22.0-30.0); Creatinine Clearance Estimated 85 mL/min (50-200); Estimated Glomerular Filt Rate 65 ml/min (>60); GFR (African American) 78 ML/MIN (>60); Globulin 2.7 g/dL (1.3-3.2); Glucose 109 mg/dl (74-100); Total Protein,Serum 6.3 g/dl (6.3-8.2)
[2020-03-07 16:42] LABS: INR 1.91 (0.9-1.1)
[2020-03-07 17:41] LABS: Coronavirus 19 IgG Antibody Negative (Negative); Coronavirus 19 IgM Antibody Negative (Negative)
--- NOTE | 2020-03-07 18:04 | ECG_ITS ---
APPROVED REPORT Exam: Resting ECG HR:59 bpm ECG Measurements Heart Rate 59 AXES QRSd 92 QRS 28 QT 430 T 16 QTc 425 Conclusion Atrial fibrillation with slow ventricular response Abnormal ECG Electronically signed by : Nam Montero, 03/08/2020 05:28:54
[2020-03-07 19:05] LABS: Activated Partial Thrombo Time 30.5 seconds (23.6-34.0)
--- NOTE | 2020-03-07 19:31 | PC.NURSE ---
patient arrived to floor at about 1845. patient was in stable condition. only complaints of pain. assessment within normal limits except for the r hip pain. at this time patient refusing to let us move him around. report given to l.king belcher
[2020-03-07 23:15] LABS: Microscopic, Urine URINE MICROSCOPIC (MICROSCOPIC)
[2020-03-07 23:54] LABS: Appearance,Urine CLEAR (Clear); Bilirubin,Urine Negative (Negative); Blood, Urine 3+ (Negative); Color,Urine YELLOW (Yellow); Glucose,Urine (UA) Negative (Negative); Ketones,Urine Negative (Negative); Leukocyte Esterase,Urine Negative (Negative); Nitrate,Urine Negative (Negative); Protein,Urine 1+ (Negative); Specific Gravity, Urine >= 1.030 (1.005-1.030); Urobilinogen,Urine 0.2 EU/dl (0.2)
[2020-03-08 00:45] LABS: Bacteria,Urine 1+ /lpf; RBC,Urine 20-50 #/hpf (0-3)
[2020-03-08 04:00] VITALS: BP 113/75; PULSE 101; RESP 17; TEMP 36.5; O2SAT 93
[2020-03-08 05:16] VITALS: BMI 31.8
--- NOTE | 2020-03-08 05:34 | PC.NURSE ---
Pt is A&Ox4. Pt has been given PRN pain meds x2 this shift for right leg and arm pain. Pt has had favorable results from both administrations and is currently resting with eyes closed at this time. Lungs are clear t/o per auscultation. [place] traction currently in place for RLE, pt stated that he felt relief once traction was put in place. Pt requested a catheter this shift and refused staff assistance for urinal. MD Vasquez contacted for order of bedoya cath. Bedoya inserted using sterile technique. Bedoya is currently draining cloudy, dark ana urine. UA was obtained and results are in chart. No other acute changes or complaints. Will continue to monitor.
[2020-03-08 07:45] VITALS: O2SAT 95
[2020-03-08 08:00] VITALS: BP 122/63; PULSE 71; RESP 20; TEMP 36.9; O2SAT 95
--- NOTE | 2020-03-08 08:03 | CA_ITS ---
APPROVED REPORT EXAM: Comprehensive 2D, Doppler, and color-flow Echocardiogram Special Education Supervisor: Lou Palacios RVT Ht: 6 ft 0 in Wt: 239lbs BSA: 2.30 BP: 100/70 mmHg Indications: PRE-OP HIP FX,A-FIB,EX SMOKER,HTN,HLD TDS-PT FLAT ON BACK WITH RT LEG IN TRACTION 2D Dimensions LVOT 1.87 cm (M/F) 1.5-2.5 M-Mode Dimensions RVDd 3.99 cm (0.9-2.6) LA Diam 4.26 cm (1.9-4.0) LVDd 5.55 cm (3.5-5.7) Ao Diam 3.51 cm (2.0-3.7) LVDs 3.48 cm (3.5-5.7) IVSd 1.11 cm (0.6-1.1) PWd 1.85 cm (0.6-1.1) EF (Teich) 66.60% FS 37.30% EDV (Teich) 150.50 mL ESV (Teich) 50.20 mL Pulmonary Valve PV Peak Velocity 104.00 (50-150 cm/s) Tricuspid Valve TR P. Velocity 261.00 cm/s Left Ventricle Left atrium is moderately enlarged, left ventricle is normal size, mild concentric left ventricular hypertrophy, septum is sigmoid configuration, visually estimated ejection fraction is 55% with no regional wall motion abnormality, diastolic parameters are inconclusive. Right Ventricle Right atrium and right ventricle moderately enlarged with normal contractility. Aortic Valve Aortic valve is thickened and calcified leaflet chordae display good mobility, there is no aortic stenosis or aortic insufficiency. Mitral Valve Mitral valve leaflets are minimally thickened, there is mild mitral regurgitation. Tricuspid Valve Tricuspid valve is grossly normal, there is mild tricuspid regurgitation, tricuspid regurgitation jet velocity is inadequate for calculation of the right ventricular systolic pressure. Pulmonic Valve Pulmonic valve is poorly visualized. Great Vessels Aortic root is normal size. Pericardium No significant pericardial effusion noted. Conclusion 1. Moderate biatrial enlargement, normal left ventricular size, mild concentric left ventricular hypertrophy, visually estimated ejection fraction 55% with no regional wall motion abnormality, diastolic parameters are inconclusive. 2. Moderately enlarged right ventricle with normal contractility. 3. Mild mitral and tricuspid regurgitation. 4. No significant pericardial effusion noted. Electronically signed by : Primo Mcbride, 03/09/2020 13:56:37
--- NOTE | 2020-03-08 08:43 | HMH.HP ---
*Admission Date: 03/08/20 <Swati Marcano - 03/08/20 09:00> *Chief complaint: right hip pain <Swati Marcano 03/08/20 09:00> *History of present illness: Mr. Richardson is a 80-year-old male with a history of high blood pressure, hyperlipidemia, history of CVA x2, and history of A. fib who was brought in by ambulance for right hip injury. He was working in a barn on a tractor standing on some plastic. The plastic got pulled out from under his feet causing his feet to fly out from under him and he then went airborne and landed on the ground on his right hip. He had severe pain in his right hip and was unable to move or get up. He did hit his head, but had no loss of consciousness, no head pain, no neck pain, and no dizziness. 911 was called and he was transported to [facility] via ambulance. He was given fentanyl during transport. He was evaluated in the emergency room and found to have a right hip fracture. He was admitted and orthopedics was consulted and he was placed in traction. Of note, he is on Coumadin due to his A. fib. His primary care doctor is Vasquez Snow at [facility]. <Swati Marcano 03/08/20 09:00> [facility] History I have reviewed the patient's past medical history: Yes <Swati Marcano 03/08/20 09:00> Medical History: Reports:: Atrial Fibrillation, Cerebrovascular Accident, Hyperlipidemia, Hypertension Denies:: Cancer, Diabetes Mellitus Type 1, Diabetes Mellitus Type 2, Internal Pacemaker, MRSA, Seizures <Swati Marcano 03/08/20 09:00> *Have you ever received a pneumonia vaccine?: Yes <Swati Marcano 03/08/20 09:00> *Have you received a flu vaccine this season?: Yes <Swati Marcano 03/08/20 09:00> Other Medical History: Reports: Arthritis, Cataracts, Sinus Problems, Other (Hole patched in the heart). Denies: Blood Transfusion Reaction <Swati Marcano 03/08/20 09:00> Laterality Cases: Bilateral: Cataract <Swati Marcano 03/08/20 09:00> Other Surgeries: Yes: Cardiac Catheterization. No: Pacemaker <Swati Marcano 12/09/20 09:00> Amputation: No <Swati Marcano 03/08/20 09:00> Fractures: No <Swati Marcano 03/08/20 09:00> - *Social History Last grade of school completed: High school graduate <Swati Marcano 03/08/20 09:00> Smoking Status: Former smoker <Swati Marcano 03/08/20 09:00> Tobacco Type: cigarettes <Swati Marcano 03/08/20 09:00> Alcohol Intake: current <Swati Marcano 03/08/20 09:00> Alcohol Intake Frequency:: a few times a month <Swati Marcano 03/08/20 09:00> *Occupational Status:: employed <Swati Marcano 03/08/20 09:00> Housing: house <Swati Marcano 03/08/20 09:00> Household Members: none <Swati Marcano 03/08/20 09:00> *Travel in the last 8 weeks: None <Swati Marcano 03/08/20 09:00> Family Hx:: Cancer, Diabetes, Heart Attack, Hypertension, Stroke, Alcoholism <Swati Marcano 03/08/20 09:00> Review of Systems - Constitutional Reports weakness, Denies chills, Denies fever(s) <Swati Marcano 03/08/20 09:00> - Eyes Denies blurry vision, Denies double vision <Swati Marcano 03/08/20 09:00> - ENT Denies nasal congestion, Denies sore throat <Swati Marcano 03/08/20 09:00> - *Cardiovascular Reports shortness of breath, Denies chest pain <Swati Marcnao 03/08/20 09:00> - *Respiratory Reports shortness of breath, Denies cough <Swati Marcano 03/08/20 09:00> - *Gastrointestinal Reports nausea, Denies abdominal pain, Denies loose stools, Denies vomiting <Swati Marcano 03/08/20 09:00> - *Genitourinary Denies difficulty urinating, Denies painful urination <Swati Marcano 03/08/20 09:00> - *Musculoskeletal Reports joint pain (right hip and leg) <Swati Marcano - 03/08/20 09:00> - *Neurologic Reports numbness (Right leg), Reports weakness (right leg), Denies headache(s) <Swati Marcano - 03/08/20 09:00> Meds Home Medications Medication Instructions Recorded Confirmed Type Famotidine [Pepcid 20mg Tablet] 20 mg PO BID 08/29/17 03/08/20
--- NOTE | 2020-03-08 09:00 | HMH.CNCARD ---
History of Present Illness Consult date: 03/08/20 Requesting physician: Stanford Vasquez Consult reason: atrial fibrillation, pre-op evaluation Chief complaint: pre-op evaluation for Closed fracture hip and atrial fibrillation Additional Medical History:: 1. Closed fractured hip (03/08/2020) 2. Atrial fibrillation a. Controlled heart rate b. Coumadin therapy 3. Hypertension 4. Hyperlipidemia a. Pt is on statin therapy. 5. History of CVA a. X2 years ago (per pt) 6. Heart surgery a. Dr. Huff (2010) History of present illness: 80-year-old male presented to emergency room yesterday with fractured closed right hip. Patient stated while working at the [employer] yesterday, he had stepped on some plastic, friend pulled the plastic and he fell landing on his right hip. Patient stated upon arrival to the ED via EMS he was given fentanyl which relieved the pain of the right hip. Patient denied chest pain, tightness or pressure. Patient complains of shortness of breath. Patient stated the shortness of breath is no worse than usual. No swelling of the lower extremities. Good pedal pulses noted bilaterally. No discoloration noted of the right lower extremity. Patient denies dizziness or palpitations. Patient denies fever, vomiting or nausea. Patient does have history of atrial fibrillation which is controlled. Patient is on Coumadin which is regulated by Dr. Snow. INR goal is 1.8-2.3. As per patient. Patient does have history of hypertension, hyperlipidemia, CVA x2 and heart surgery. Patient stated Dr. Huff at [facility] repair to a hole in his heart in 2010. Upon this assessment patient was given Dilaudid 0.5 mg IV push for his pain. Will defer pain management to PCP or Ortho. Coumadin has been stopped per ER MD and PCP. Initial work-up was performed in the ER. EKG revealed atrial fibrillation with a heart rate of 58 bpm. Initial labs revealed INR 1.91 and creatinine 1.10. Preliminary echocardiogram was performed revealed Normal EF with no segmental wall motion abnormalities (per Dr. AWAN) CT of Right hip: There is an impacted and comminuted intertrochanteric fracture of the right femur. The lesser trochanter fragment is displaced medially by approximately 1.5 cm. The femoral head is located. Degenerative changes are present in the lower lumbar spine. There is fusion of the right SI joint. There is increased soft tissue density in the pericapsular region of the right hip consistent with effusion or hemarthrosis. IMPRESSION: Comminuted impacted intertrochanteric fracture of the right hip Discussed case with Dr. Zhang. Recommend management of Coumadin to PCP. Pt is at a low and acceptable risk to proceed with his elective hip surgery, from a cardiac standpoint. Please resume Coumadin post operatively as noted by Ortho/PCP. Thank you for letting cardiology participate in the care of this patient. [facility] History Medical History: Reports:: Atrial Fibrillation, Cerebrovascular Accident, Hyperlipidemia, Hypertension Denies:: Cancer, Diabetes Mellitus Type 1, Diabetes Mellitus Type 2, Internal Pacemaker, MRSA, Seizures *Have you ever received a pneumonia vaccine?: Yes *Have you received a flu vaccine this season?: Yes Other Medical History: Reports: Arthritis, Cataracts, Sinus Problems, Other (Hole patched in the heart). Denies: Blood Transfusion Reaction Laterality Cases: Bilateral: Cataract Other Surgeries: Yes: Cardiac Catheterization. No: Pacemaker Amputation: No Fractures: No - *Social History Last grade of school completed: High school graduate Smoking Status: Former smoker Tobacco Type: cigarettes Alcohol Intake: current Alcohol Intake Frequency:: a few times a month *Occupational Status:: employed Housing: house Household Members: none *Travel in the last 8 weeks: None Family Hx:: Cancer, Diabetes, Heart Attack, Hypertension, Stroke, Alcoholism Meds [place]
--- NOTE | 2020-03-08 09:29 | HMH.PHAVTE ---
[facility] Pharmacy VTE Monitoring - Patient Demographics Admission date: 03/07/20 Report Date: 03/08/20 Time: 09:29 Allergies/Adverse Reactions: Patient Allergies No Known Allergies Allergy (Verified 03/07/20 15:49) Height: 1.85 m Weight: 108.8 kg Patient Problems: Current Active Problems Closed right hip fracture (Acute) Hypertension (Chronic) Hyperlipidemia (Chronic) History of CVA (cerebrovascular accident) (Chronic) Atrial fibrillation (Chronic) - VTE Risk Labs: VTE Related Lab Results Hgb 14.3 g/dL (14.1-18.0) 03/07/20 16:19 Hct 45.9 % (42.0-52.0) 03/07/20 16:19 Plt Count 219 K/mm3 (142-424) 03/07/20 16:19 PT 20.0 seconds (9.4-11.8) H 03/07/20 16:19 INR 1.91 (0.9-1.1) H 03/07/20 16:19 APTT 30.5 seconds (23.6-34.0) 03/07/20 16:19 BUN 18 mg/dl (9-20) 03/07/20 16:19 Creatinine 1.10 mg/dl (0.66-1.25) 03/07/20 16:19 Estimated Creat Clear 85 mL/min (50-200) 03/07/20 16:19 VTE Score: 6 VTE Risk Level: Moderate Risk - Prophylaxis VTE Prophylaxis Ordered?: Yes Types of VTE Prophylaxis: TEDS Knee High Location of Applied Device: Left Leg
[2020-03-08 10:46] LABS: INR 2.19 (0.9-1.1); Prothrombin Time 22.6 seconds (9.4-11.8)
--- NOTE | 2020-03-08 11:25 | PC.NURSE ---
Spoke with Dr. Curry regarding pain management. order received to increase dilaudid to 1mg q4prn. order read back and verified.
--- NOTE | 2020-03-08 15:05 | HMH.ORTHOCON ---
*Admission Date: 03/07/20 *Reason for consult:: Intertrochanter fracture, right femur *History of present illness: Patient is a 80-year-old male admitted from emergency room yesterday for management of closed intertrochanteric fracture of the right femur. Patient states he was working in a barn on a tractor standing on some plastic yesterday. The plastic got pulled out from under his feet causing his feet to fly out from under him and he then went airborne and landed on the ground on his right hip. He had severe pain in his right hip and was unable to move or get up. He did hit his head, but had no loss of consciousness, no headache, no neck pain, and no dizziness. 911 was called and he was transported to [facility] via ambulance. Evaluation in the ER confirmed a comminuted and displaced right intertrochanteric fracture. He is admitted for management of the same. He says the pain is somewhat better after application of the skin traction. He says his pain is well controlled at rest but trying to move the RIGHT leg causes hip pain. Patient denies any dizziness, headache, chest or neck pain. He denies loss of consciousness, chest pain and shortness of breath. Patient is on long-term Coumadin for atrial fibrillation. His Coumadin was held yesterday. His INR on admission was 1.91. His medical history includes hypertension, hyperlipidemia, A. fib, CVA x2 and heart surgery. Patient stated Dr. Huff at [facility] repaired a hole in his heart in 2010. His primary care doctor is Vasquez Snow at [facility]. [facility] History I have reviewed the patient's past medical history: Yes Medical History: Reports:: Atrial Fibrillation, Cerebrovascular Accident, Hyperlipidemia, Hypertension Denies:: Cancer, Diabetes Mellitus Type 1, Diabetes Mellitus Type 2, Internal Pacemaker, MRSA, Seizures *Have you ever received a pneumonia vaccine?: Yes *Have you received a flu vaccine this season?: Yes Other Medical History: Reports: Arthritis, Cataracts, Sinus Problems, Other (Hole patched in the heart). Denies: Blood Transfusion Reaction Laterality Cases: Bilateral: Cataract Other Surgeries: Yes: Cardiac Catheterization. No: Pacemaker Amputation: No Fractures: No - *Social History Last grade of school completed: High school graduate Smoking Status: Former smoker Tobacco Type: cigarettes Alcohol Intake: current Alcohol Intake Frequency:: a few times a month *Occupational Status:: employed Housing: house Household Members: none *Travel in the last 8 weeks: None Family Hx:: Cancer, Diabetes, Heart Attack, Hypertension, Stroke, Alcoholism Review of Systems - Review of Systems Review of systems:: pertinent systems reviewed and negative unless documented below - Constitutional Denies body ache(s), Denies chills, Denies fever(s) - Eyes Denies change in vision - ENT Denies abnormal hearing - *Cardiovascular Denies chest pain, Denies shortness of breath - *Respiratory Denies chest congestion, Denies cough, Denies shortness of breath - *Gastrointestinal Denies abdominal pain, Denies change in bowel habits - *Musculoskeletal Reports abnormal walking, Reports joint pain, Reports limited joint movement - *Neurologic Reports abnormal walking, Reports numbness (Right leg), Reports weakness (right leg), Denies headache(s) - Endocrine Denies cold intolerance, Denies excessive sweating, Denies heat intolerance - Hematologic/Lymphatic Reports easy bleeding, Reports easy bruising Meds Home Medications Medication Instructions Recorded Confirmed Type RX: Famotidine [Pepcid 20mg 20 mg PO BID 08/29/17 03/08/20 History Tablet] RX: Potassium Chloride [Klor-Con 10 meq PO DAILY 08/29/17 03/07/20 History Sprinkle 10mEq] RX: Pravastatin Sodium [Pravachol 20 mg PO DAILY 08/29/17 03/07/20 History 20mg Tablet] RX: allopurinoL [Allopurinol 300mg 300 mg PO BID 08/29/17 03/08/20 History tablet] RX: atenoloL [Atenolol 50mg Tab] 50 m
--- NOTE | 2020-03-08 15:15 | PC.NURSE ---
Dr. Mack in room.
[2020-03-08 15:31] VITALS: BP 119/54; PULSE 70; RESP 17; TEMP 37; O2SAT 100
--- NOTE | 2020-03-08 16:40 | PC.NURSE ---
Routine reassessment completed. Lungs remain diminished throughout. Heart at RR. BS present x4. Pt. reports pain at 10/10 in RLE, See EMAR for medications given. RLE remains in bucks tractions nurse attempted to have pt. readjust. Pt. wishes to wait until pain medication is working. Nurse v/u. Pt. denies further needs, will continue to monitor.
--- NOTE | 2020-03-08 19:34 | PC.NURSE ---
Report given to Nelson Mccauley RN.
[2020-03-08 19:36] VITALS: BP 100/64; PULSE 96; RESP 20; TEMP 36.8; O2SAT 91
[2020-03-09] VITALS (24 sets, daily range): BP systolic 74–123; BP diastolic 46–70; PULSE 72–110; RESP 12–18; TEMP 36.5–43; O2SAT 89–99
--- NOTE | 2020-03-09 04:57 | PC.NURSE ---
Pt RLE remains in bucks traction. Pt was repositioned after shift change. Pt did not tolerate well. Education was given to pt about importance of trying to keep limb straight and positioned correctly. Pt has not been cooperative at times. Medication administered per mar. Consent for surgery signed and on chart. Pt is NPO. Will continue to monitor.
[2020-03-09 07:31] LABS: Basophils # 0.2 K/mm3 (0-0.2); Basophils % 1.5 % (0.1-2.0); Hematocrit 45.2 % (42.0-52.0); Hemoglobin 12.5 g/dL (14.1-18.0); Lymphocytes # 1.2 K/mm3 (0.7-4.5); Lymphocytes % 9.1 % (10-50); Mean Corpuscular HGB Conc 27.6 g/dL (31.8-35.4); Mean Corpuscular Hemoglobin 26.4 pg (27.0-31.2); Mean Corpuscular Volume 95.8 fl (80-94); Monocytes # 1.5 K/mm3 (0.1-1.0); Neutrophils # 10.6 K/mm3 (1.8-7.8); Neutrophils % 78.4 % (37.0-80.0); Platelet Count 206 K/mm3 (142-424); Red Blood Count 4.72 M/mm3 (4.60-6.20); Red Cell Distribution Width 20.1 % (11.5-17.5); White Blood Count 13.6 K/mm3 (4.8-10.8)
[2020-03-09 08:12] LABS: INR 1.48 (0.9-1.1); Prothrombin Time 15.9 seconds (9.4-11.8)
--- NOTE | 2020-03-09 08:47 | HMH.ACPN2 ---
<Swati Marcano - Last Filed: 03/09/20 08:47> Internal Medicine - PN: Subj *Date: 03/09/20 *Time: 08:47 Interval history: Patient had a lot of pain throughout the night. His INR is 1.48 this morning. He is waiting on ortho to see him. Exam Vital signs and Labs for Last 24 Hours: Temp Pulse Resp BP Pulse Ox 97.7 F 93 H 18 110/70 92 L 03/09/20 03:33 03/09/20 03:33 03/09/20 08:00 03/09/20 03:33 03/09/20 03:33 Laboratory Results - last 24 hr 03/08/20 10:09: PT 22.6 H, INR 2.19 H 03/08/20 10:09: Blood Type A Negative, Antibody Screen Negative 03/09/20 07:11: WBC 13.6 H D, RBC 4.72, Hgb 12.5 L, Hct 45.2, MCV 95.8 H, MCH 26.4 L, MCHC 27.6 L, RDW 20.1 H, Plt Count 206, MPV 14.0 H, Neut % (Auto) 78.4, Lymph % (Auto) 9.1 L, Wheeler % (Auto) 11.0 H, Eos % (Auto) 0.0 L, Baso % (Auto) 1.5, Neut # (Auto) 10.6 H, Lymph # (Auto) 1.2, Wheeler # (Auto) 1.5 H, Eos # (Auto) 0.0, Baso # (Auto) 0.2 03/09/20 07:11: PT 15.9 H, INR 1.48 H I & O for Last 24 hours: Intake & Output 03/06/20 03/07/20 03/08/20 03/09/20 11:59 11:59 11:59 11:59 Intake Total 120 / 120 120 / 120 Output Total 320 / 320 700 / 700 Balance -200 / -200 -580 / -580 Weight 239 lb 13.807 oz - Constitutional no acute distress - *Routine Respiratory Exam Present: CTA bilaterally - *Routine Cardiovascular Exam Present: RRR - *Routine Abdominal Exam Present: soft, normoactive bowel sounds. Absent: tenderness - *Routine Extremities Exam Absent: cyanosis, clubbing, edema Comments: right leg in traction - *Routine Skin Exam Present: warm. Absent: rash - *Routine Neurological Exam Present: alert, oriented X3 Assessment and Plan (1) Closed right hip fracture Status: Acute Qualifiers: Encounter type: initial encounter Qualified Code(s): S72.001A - Fracture of unspecified part of neck of right femur, initial encounter for closed fracture Category: Medical Code(s): S72.001A - Fracture of unspecified part of neck of right femur, initial encounter for closed fracture (2) Hypertension Status: Chronic Category: Medical Code(s): I10 - Essential (primary) hypertension (3) Hyperlipidemia Status: Chronic Category: Medical Code(s): E78.5 - Hyperlipidemia, unspecified (4) History of CVA (cerebrovascular accident) Status: Chronic Category: Medical Code(s): Z86.73 - Personal history of transient ischemic attack (TIA), and cerebral infarction without residual deficits (5) Atrial fibrillation Status: Chronic Category: Medical Code(s): I48.91 - Unspecified atrial fibrillation - Assessment and plan all Dx Assessment and Plan for all problems:: Dr. Mack to see patient today. Will likely have surgery today. <Stanford Vasquez - Last Filed: 03/09/20 09:39> Internal Medicine - PN: Subj *Date: 03/09/20 *Time: 09:38 Exam Vital signs and Labs for Last 24 Hours: Temp Pulse Resp BP Pulse Ox 98.4 F 108 H 18 114/65 92 L 03/09/20 08:00 03/09/20 08:00 03/09/20 08:00 03/09/20 08:00 03/09/20 08:00 Laboratory Results - last 24 hr 03/08/20 10:09: PT 22.6 H, INR 2.19 H 03/08/20 10:09: Blood Type A Negative, Antibody Screen Negative 03/09/20 07:11: WBC 13.6 H D, RBC 4.72, Hgb 12.5 L, Hct 45.2, MCV 95.8 H, MCH 26.4 L, MCHC 27.6 L, RDW 20.1 H, Plt Count 206, MPV 14.0 H, Neut % (Auto) 78.4, Lymph % (Auto) 9.1 L, Wheeler % (Auto) 11.0 H, Eos % (Auto) 0.0 L, Baso % (Auto) 1.5, Neut # (Auto) 10.6 H, Lymph # (Auto) 1.2, Wheeler # (Auto) 1.5 H, Eos # (Auto) 0.0, Baso # (Auto) 0.2 03/09/20 07:11: PT 15.9 H, INR 1.48 H I & O for Last 24 hours: Intake & Output 03/06/20 03/07/20 03/08/20 03/09/20 11:59 11:59 11:59 11:59 Intake Total 120 / 120 120 / 120 Output Total 320 / 320 700 / 700 Balance -200 / -200 -580 / -580 Weight 239 lb 13.807 oz Assessment and Plan (1) Closed right hip fracture Status: Acute Qualifiers: Encounter type: initial encounter Qualified C
--- NOTE | 2020-03-09 14:51 | SW/DCPLANNER ---
Addendum entered by Lola Calderon 03/10/20 12:02: PT/OT information has been faxed to [facility]. Addendum entered by Lola Calderon 03/10/20 09:43: I spoke with this patient today regarding discharge plans. Patient stated that he would like to discharge to his girlsfriends house at time of discharge. I did discuss with patient that per PT he could benefit from placement to regain his strength. I did discuss [facility] with this patient regarding short term rehab. Patients son was present at time of my visit. Son stated that he was unsure of this plan regarding pandemic. I have explained the importance of rehab to family and patient prior to returning home. Patient understands situation at this time and is agreeable for me to fax information to [facility] to see what they say but a final decision has not been made by patient. Patient would also like to see how he does during afternoon PT session. I will continue to follow up with: patient, family, PT/OT and [facility]. Original Note: Attempted to speak with this patient regarding discharge plans once medically stable. Patient is currently down for surgery at this time.
--- NOTE | 2020-03-09 16:30 | HMH.CONS ---
*Admission Date: 03/07/20 *Reason for consult:: Gross hematuria *History of present illness: Patient is a 80-year-old male admitted from emergency room yesterday for management of closed intertrochanteric fracture of the right femur. Patient states he was working in a barn on a tractor standing on some plastic yesterday. The plastic got pulled out from under his feet causing his feet to fly out from under him and he then went airborne and landed on the ground on his right hip. He had severe pain in his right hip and was unable to move or get up. He did hit his head, but had no loss of consciousness, no headache, no neck pain, and no dizziness. 911 was called and he was transported to [facility] via ambulance. Evaluation in the ER confirmed a comminuted and displaced right intertrochanteric fracture. He is admitted for management of the same. Patient is referred now for onset of gross hematuria that coincided with Carbone catheter placement and transfer to the floor. Patient denies a previous history of gross hematuria. He states he has also gotten his Carbone catheter wrapped up around his leg while in the hospital last 3 days in cannot rule out that he is tugged on it. CT scan of his hip was reviewed and there appears to be no evidence of any bladder trauma or bladder clot. [facility] History Medical History: Reports:: Atrial Fibrillation, Cerebrovascular Accident, Hyperlipidemia, Hypertension Denies:: Cancer, Diabetes Mellitus Type 1, Diabetes Mellitus Type 2, Internal Pacemaker, MRSA, Seizures *Have you ever received a pneumonia vaccine?: Yes *Have you received a flu vaccine this season?: Yes Other Medical History: Reports: Arthritis, Cataracts, Sinus Problems, Other (Hole patched in the heart). Denies: Blood Transfusion Reaction Laterality Cases: Bilateral: Cataract Other Surgeries: Yes: Cardiac Catheterization. No: Pacemaker Amputation: No Fractures: No - *Social History Last grade of school completed: High school graduate Smoking Status: Former smoker Tobacco Type: cigarettes Alcohol Intake: current Alcohol Intake Frequency:: a few times a month *Occupational Status:: employed Housing: house Household Members: none *Travel in the last 8 weeks: None Family Hx:: Cancer, Diabetes, Heart Attack, Hypertension, Stroke, Alcoholism Review of Systems - Review of Systems Review of systems:: pertinent systems reviewed and negative unless documented below - *Neurologic Reports abnormal walking, Reports numbness (Right leg), Reports weakness (right leg), Denies abnormal hearing, Denies headache(s) Meds Home Medications Medication Instructions Recorded Confirmed Type Famotidine [Pepcid 20mg Tablet] 20 mg PO BID 08/29/17 03/08/20 History Potassium Chloride [Klor-Con 10 meq PO DAILY 08/29/17 03/07/20 History Sprinkle 10mEq] Pravastatin Sodium [Pravachol 20mg 20 mg PO DAILY 08/29/17 03/07/20 History Tablet] Warfarin Sodium 5 mg PO DAILY 08/29/17 03/07/20 History allopurinoL [Allopurinol 300mg 300 mg PO BID 08/29/17 03/08/20 History tablet] atenoloL [Atenolol 50mg Tab] 50 mg PO DAILY 08/29/17 03/07/20 History lisinopriL [Lisinopril 10mg Tab] 10 mg PO DAILY 08/29/17 03/07/20 History Ergocalciferol (Vitamin D2) 1 tab PO WEEKLY 03/07/20 03/08/20 History [Drisdol 50,000 units (1.25mg) capsule] Omeprazole [Omeprazole 40mg 40 mg PO DAILY 03/08/20 03/08/20 History Capsule] Allergies Allergy/AdvReac Type Severity Reaction Status Date / Time No Known Allergies Allergy Verified 03/07/20 15:49 Exam Vital signs and Labs for Last 24 Hours: Temp Pulse Resp BP Pulse Ox 98.4 F 108 H 18 114/65 92 L 03/09/20 08:00 03/09/20 08:00 03/09/20 08:00 03/09/20 08:00 03/09/20 08:00 Laboratory Results - last 24 hr 03/09/20 07:11: WBC 13.6 H D, RBC 4.72, Hgb 12.5 L, Hct 45.2, MCV 95.8 H, MCH 26.4 L, MCHC 27.6 L, RDW 20.1 H, Plt Count 206, MPV 14.0 H, Neut % (Auto) 78.4, Lymph % (Auto) 9.1 L, [place] %
--- NOTE | 2020-03-09 16:34 | XR_ITS ---
PROCEDURE: XR HIP RT 2-3V W/PELVIS CLINICAL INDICATION: RIGHT GAMMA NAIL IN OR COMPARISON: No exams were available for comparison FINDINGS: Fluoroscopy time: 2 minutes and 17 seconds Status post gamma nail insertion with long intramedullary bigg with good alignment. IMPRESSION: Status post ORIF comminuted right intertrochanteric fracture Dictated by: Jerry Perry MD 03/09/2020 17:13 Jerry Perry MD in OV 03/09/2020 17:13
--- NOTE | 2020-03-09 17:25 | P.PN_ITS ---
[facility] Anesthesia Checklist - Structural Data Admitted From: Inpatient Planned Operative Procedure/s: orif r hip Consent for Planned Operative Procedure(s) Verified: Yes - Additional verifications Anesthesia Reactions: No Hx Blood Transfusions: No Blood Transfusion Reaction: No - Airway Assessment C-Spine Mobility Assessed: Yes TMJ Mobility Assessed: Yes Dentition: Poor Dentition - Neurological Assessment Level of Consciousness: Awake, Alert, Appropriate - Anesthesia Plan Anesthesia Risk discussed: Yes Anesthesia Plan: Verified ASA Class: III Anesthesia Type: MAC w/Spinal [facility] History I have reviewed the patient's past medical history: Yes Medical History: Reports:: Atrial Fibrillation, Cerebrovascular Accident, Hyperlipidemia, Hypertension Denies:: Cancer, Diabetes Mellitus Type 1, Diabetes Mellitus Type 2, Internal Pacemaker, MRSA, Seizures *Have you ever received a pneumonia vaccine?: Yes *Have you received a flu vaccine this season?: Yes Other Medical History: Reports: Arthritis, Cataracts, Sinus Problems, Other (Hole patched in the heart). Denies: Blood Transfusion Reaction Anesthesia experience/problems:: none Laterality Cases: Bilateral: Cataract Other Surgeries: Yes: Cardiac Catheterization. No: Pacemaker Amputation: No Fractures: No - *Social History Last grade of school completed: High school graduate Smoking Status: Former smoker Tobacco Type: cigarettes Alcohol Intake: current Alcohol Intake Frequency:: a few times a month Substance Use Type: denies use *Occupational Status:: employed Housing: house Household Members: none *Travel in the last 8 weeks: None Family Hx:: Cancer, Diabetes, Heart Attack, Hypertension, Stroke, Alcoholism
--- NOTE | 2020-03-09 17:26 | P.PN_ITS ---
[facility] Anesthesia Record Part I Intake, IV Amount: 2,500 Estimated blood loss (mL): 250 Urine output (mL): 200 Blood Pressure: 90/50 SaO2: 97 Pulse Rate: 89 Respiratory Rate: 12 Temperature: 99.2 F Patient is:: Awake, Stable Stable to PACU at:: 17:20
--- NOTE | 2020-03-09 17:54 | HMH.OPNOTE ---
Date of procedure: 03/09/20 Pre-op Diagnosis:: Closed, comminuted and displaced intertrochanteric fracture, right femur Post-op Diagnosis:: Same Procedure performed:: Closed reduction and cephalomedullary nailing, right femur Surgeon:: Negrito Mack MD Archives Specialist(s):: Alissa Goodson CARPENTER STREETCAR:: Chang Powell Anesthesia: spinal Estimated blood loss (mL): 250 Clinical Note:: Patient is a 80-year-old male who had a mechanical fall sustaining an injury to his RIGHT hip 03/07/2020. Following evaluation in the emergency room where x-ray showed a displaced and comminuted intertrochanteric fracture of the RIGHT proximal femur, patient was admitted for further management. Surgery was delayed for couple of days as patient was on warfarin and had high INR to begin with. After evaluating the patient, I have discussed the diagnosis and management options in detail including nonsurgical and surgical, with the patient. Prior to the injury patient was active and mobile independently. After a detailed discussion with the patient a decision was made to fix the fracture internally with a cephalo-medullary nail. I have discussed the procedure, risks and benefits, postoperative recovery and rehabilitation and the expected outcomes. The complications discussed include but are not limited to DVT, PE, infection, bleeding, injury to nerves and blood vessels, screw cut-out/implant failure, loss of fixation, nonunion, malunion/malrotation, osteonecrosis of the femoral head, femoral shaft fracture, painful hardware, heterotopic ossification, stiffness, weakness, incomplete relief of pain, incomplete return of function or motion and the likely need for further surgery in future, and anesthetic/medical complications including heart attack, stroke, transfusion reaction or . The patient wished to proceed with the surgical remediation. Consent form was reviewed and signed by me. The limb was appropriately marked and initialed by me. Following appropriate preoperative workup and medical clearance, patient is brought to the operating room for surgery. The surgery is indicated to reduce and stabilize the fracture, relieve pain and improve function. Patient understood the risks, agreed to proceed with surgery, signed the consent form and no guarantees or assurances were given or implied. Operative findings:: Comminuted, displaced and unstable intertrochanteric fracture RIGHT proximal femur as noted on the preoperative imaging. The fracture is well reduced with closed manipulation prior to fixation. Bone quality is good. Operative note:: Following appropriate preoperative workup and medical/cardiac clearance, patient is brought to the operating room and a spinal anesthesia was administered. Patient was then positioned supine on the fracture table and all the bony prominences were appropriately padded. The RIGHT foot was secured in the footplate and the footplate was attached to the fracture table. The left leg was placed out of the way in a leg wilson. Under fluoroscopic guidance the fracture was reduced by traction and satisfactory reduction was obtained. The reduction was confirmed on both AP and lateral views. The RIGHT hip and thigh were then prepped and draped in the usual sterile fashion. Administration of prophylactic antibiotics was confirmed with the anesthetic team (2 g of IV Ancef was administered). A preprocedure timeout was performed as per the hospital protocol. After marking the level of the greater trochanter on the skin under fluoroscopy, a skin incision was made proximal to the greater trochanter in line with the femoral shaft. The dissection was then carried through the subcutaneous tissue. The tensor fascia muscle was split in line with the fibers. This provided access to the tip of the greater trochanter. Under fluoroscopic guidance a guidewire was placed at the tip of the greater trochanter, the position was confirmed on both fluoroscopic views and advanced into the proximal femur.
--- NOTE | 2020-03-09 19:13 | P.PN_ITS ---
[facility] Anesthesia Record Part II Discharge Time: 18:20 Destination: Medical Surgical Department PACU nurse assessment reviewed?: Yes Patient Condition:: Good Anesthesia Complications:: None Swallowing reflex intact?: Yes Cyanosis?: No Blood Pressure: 108/57 Pulse Rate: 88 Temperature: 98.3 F Mental Status: Alert & Oriented Pain level:: 0 Nausea and/or vomitting:: None Intake, IV Amount: 0
--- NOTE | 2020-03-09 19:35 | PC.NURSE ---
report received from Carlos Eduardo PACK
--- NOTE | 2020-03-09 19:53 | PC.NURSE ---
HE IS AOX4 ABLE TO ANSWER QUESTIONS AND FOLLOW COMMANDS, VSS AT TIME OF WRITING, DUEÑAS CATH DRAINING DARK CONCENTRATED URINE, PT DENIES PAIN.
[2020-03-09 20:49] LABS: INR 1.24 (0.9-1.1); Prothrombin Time 13.5 seconds (9.4-11.8)
--- NOTE | 2020-03-09 21:15 | PC.NURSE ---
DR Mack at bedside report given. md assessed pt, no new orders at this time
--- NOTE | 2020-03-09 21:34 | PC.NURSE ---
right leg still numb from surgery pt unable to wiggle toes or lift leg, pulses palpable
[2020-03-10] VITALS (8 sets, daily range): BP systolic 92–136; BP diastolic 65–87; PULSE 80–105; RESP 16–20; TEMP 36.6–37.3; O2SAT 90–98; BMI 35.5
--- NOTE | 2020-03-10 01:34 | PC.NURSE ---
O2 APPLIED AT 2L NC
--- NOTE | 2020-03-10 02:00 | PC.NURSE ---
report given to Matt Santiago RN
[2020-03-10 07:12] LABS: Basophils % 0.3 % (0.1-2.0); Hematocrit 36.2 % (42.0-52.0); Hemoglobin 11.4 g/dL (14.1-18.0); Lymphocytes # 1.3 K/mm3 (0.7-4.5); Mean Corpuscular HGB Conc 31.4 g/dL (31.8-35.4); Mean Corpuscular Hemoglobin 26.7 pg (27.0-31.2); Mean Corpuscular Volume 85.2 fl (80-94); Mean Platelet Volume 9.6 fl (7.4-10.4); Monocytes # 1.3 K/mm3 (0.1-1.0); Monocytes % 10.2 % (1.7-9.3); Neutrophils # 10.1 K/mm3 (1.8-7.8); Neutrophils % 79.6 % (37.0-80.0); Platelet Count 164 K/mm3 (142-424); Red Blood Count 4.25 M/mm3 (4.60-6.20); Red Cell Distribution Width 16.7 % (11.5-17.5); White Blood Count 12.6 K/mm3 (4.8-10.8)
[2020-03-10 07:16] LABS: Chloride 107 mmol/L (98-107); Potassium 4.3 mmoL/L (3.5-5.1); Sodium 135 mmol/L (136-145)
[2020-03-10 07:18] LABS: Blood Urea Nitrogen 20 mg/dl (9-20); Creatinine Clearance Estimated 105 mL/min (50-200); Estimated Glomerular Filt Rate 72 ml/min (>60); GFR (African American) 87 ML/MIN (>60)
[2020-03-10 07:19] LABS: Alanine Aminotransferase 25 U/L (12-78); Albumin Level 2.8 g/dl (3.5-5.0); Albumin/Globulin Ratio 1.1 (1.1-1.8); Alkaline Phosphatase 68 U/L (38-126); Anion Gap 7.3 mEq/L (5-15); Aspartate Amino Transferase 94 U/L (17-59); Bilirubin,Total 1.2 mg/dl (0.2-1.3); Carbon Dioxide 25 mmol/L (22.0-30.0); Globulin 2.6 g/dL (1.3-3.2); Glucose 129 mg/dl (74-100); Total Protein,Serum 5.4 g/dl (6.3-8.2)
--- NOTE | 2020-03-10 08:36 | HMH.ACPN2 ---
<Swati Marcano - Last Filed: 03/10/20 08:36> Internal Medicine - PN: Subj *Date: 03/10/20 *Time: 08:36 Interval history: Patient had his hip repaired yesterday and tolerated the procedure well. He states he has no pain in his hip but he has severe pain and pressure in his suprapubic area. He has had some trauma around the catheter site and wants his catheter removed. He states he feels like he has to urinate but cannot. Exam Vital signs and Labs for Last 24 Hours: Temp Pulse Resp BP Pulse Ox 98.4 F 105 H 18 136/78 95 03/10/20 03:50 03/10/20 03:50 03/10/20 07:35 03/10/20 03:50 03/10/20 07:35 Laboratory Results - last 24 hr 03/09/20 20:25: PT 13.5 H, INR 1.24 H 03/10/20 06:56: WBC 12.6 H, RBC 4.25 L, Hgb 11.4 L, Hct 36.2 L, MCV 85.2, MCH 26.7 L, MCHC 31.4 L, RDW 16.7, Plt Count 164, MPV 9.6, Neut % (Auto) 79.6, Lymph % (Auto) 10.0, [place] % (Auto) 10.2 H, Eos % (Auto) 0.0 L, Baso % (Auto) 0.3, Neut # (Auto) 10.1 H, Lymph # (Auto) 1.3, [place] # (Auto) 1.3 H, Eos # (Auto) 0.0, Baso # (Auto) 0.0 03/10/20 06:56: Sodium 135 L, Potassium 4.3, Chloride 107, Carbon Dioxide 25, Anion Gap 7.3, BUN 20, Creatinine 1.00, Estimated Creat Clear 105, Estimated GFR 72, Est GFR ( Amer) 87, Glucose 129 H, Calcium 8.0 L, Total Bilirubin 1.2, AST 94 H D, ALT 25 D, Alkaline Phosphatase 68, Total Protein 5.4 L, Albumin 2.8 L, Globulin 2.6, Albumin/Globulin Ratio 1.1 I & O for Last 24 hours: Intake & Output 03/07/20 03/08/20 03/09/2020 11:59 11:59 11:59 11:59 Intake Total 120 / 120 120 / 120 2500 / 2500 Output Total 320 / 320 700 / 700 450 / 450 Balance -200 / -200 -580 / -580 2049 Weight 239 lb 13.807 oz 268 lb 4.841 oz - Constitutional no acute distress - *Routine Respiratory Exam Present: CTA bilaterally - *Routine Cardiovascular Exam Present: RRR - *Routine Abdominal Exam Present: soft, normoactive bowel sounds, tenderness (over the suprapubic area) - *Routine Extremities Exam Absent: cyanosis, clubbing, edema - *Routine Skin Exam Present: warm. Absent: rash Comments: Dressing in place over hip, clean and dry - *Routine Neurological Exam Present: alert, oriented X3 Assessment and Plan (1) Closed right hip fracture Status: Acute Qualifiers: Encounter type: initial encounter Qualified Code(s): S72.001A - Fracture of unspecified part of neck of right femur, initial encounter for closed fracture Category: Medical Code(s): S72.001A - Fracture of unspecified part of neck of right femur, initial encounter for closed fracture (2) Hypertension Status: Chronic Category: Medical Code(s): I10 - Essential (primary) hypertension (3) Hyperlipidemia Status: Chronic Category: Medical Code(s): E78.5 - Hyperlipidemia, unspecified (4) History of CVA (cerebrovascular accident) Status: Chronic Category: Medical Code(s): Z86.73 - Personal history of transient ischemic attack (TIA), and cerebral infarction without residual deficits (5) Atrial fibrillation Status: Chronic Category: Medical Code(s): I48.91 - Unspecified atrial fibrillation (6) Hematuria Status: Acute Qualifiers: Hematuria type: gross Qualified Code(s): R31.0 - Gross hematuria Category: Medical Code(s): R31.9 - Hematuria, unspecified (7) Suprapubic pain Status: Acute Category: Medical Code(s): R10.2 - Pelvic and perineal pain - Assessment and plan all Dx Assessment and Plan for all problems:: Will call and ask Dr. Byrd if the patient's bedoya can be removed. Ortho to follow after hip fracture repair. <Stanford Vasquez - Last Filed: 03/10/20 15:25> Internal Medicine - PN: Subj *Date: 03/10/20 *Time: 15:24 Exam Vital signs and Labs for Last 24 Hours: Temp Pulse Resp BP Pulse Ox 98.6 F 103 H 20 133/87 91 L 03/10/20 08:00 03/10/20 08:00 03/10/20 08:00 03/10/20 08:00 03/10/20 08:00 Laboratory Results - last 24 hr 03/09
--- NOTE | 2020-03-10 09:49 | HMH.PTEV ---
Physical Therapy Evaluation Rehab PT IP Evaluation Start: 03/09/20 17:48 Freq: ONCE Status: Active Protocol: Document 03/10/20 09:45 [facility] (Rec: 03/10/20 09:49 [facility] [id number]) Subjective/History History History 80 yowm adm to [facility] after fall while loading hay with resulting R hip fx. Now S/P R IMN. 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 Subjective Subjective Pt c/o pain in the R hip this am. Rehab PT IP Eval Objective Appearance Patient Behavior Appropriate Patient Orientation Person,Place,Time Difficulty following instructions none Speech Pattern Clear Ambulation Patient Able to Ambulate Yes Ambulation Observation IP General Gait Pattern Observation Antalgic Gait,Wide Based Gait, Shuffling Step,Decrease Weight Bear (R),Decrease Stride Lngth (R),Decrease Stride Lngth (L) Ambulation Distance (feet) 2 Ambulation Assistive Device Rolling Walker Ambulation Ability Moderate x 1 (50% assist) Balance Ability to Arise Able, uses arms to help Sitting Balance Steady, safe Standing Balance Steady, wide stance Dynamic Sitting Balance Ability Fair Dynamic Standing Balance Ability Fair Transfers Bed Transfer Ability Moderate x 2 (50% assist) Chair Transfer Ability Moderate x 2 (50% assist) Sit to Stand Bed Transfer Ability Moderate x 2 (50% assist) Sit to Stand Chair Transfer Ability Moderate x 2 (50% assist) Pain Right Hip Pain Intensity 9 ROM All Extremities PT ROM Status WFL MMT All Extremities PT MMT WFL Abnormal MMT Grade except R LE grossly 2/5 Rehab PT IP prob,goals,plan Problems Date of Evaluation: 03/10/20 PT IP Problems Bed Mobility,Transfers,Gait Rehab Potential Rehab Potential Good Plan PT Intervention Plan Bed Mobility,Transfers,Gait, Therapeutic Exercise PT Plan Frequency BID Duration LOS Discharge Goals Bed Transfer Ability Minimal x 2 (25% assist) Sit to Stand Chair Transfer Ability Minimal x 2 (25% assist) Ambulation Assistive Device Rolling Walker Ambulation Distance (feet) 20 Discharge Plan PT Discharge Plan Pt is most appropriate for rehab placement at this time. If he significant
--- NOTE | 2020-03-10 11:51 | HMH.OTEV ---
OT Inpatient Evaluation Rehab OT IP Evaluation Start: 03/09/20 17:48 Freq: ONCE Status: Complete Protocol: Document 03/10/20 11:43 [facility] (Rec: 03/10/20 11:48 [facility] [id number]) Rehab OT IP Assessment Subjective History Pt oriented x 3 on arrival. Pt agreeable to engage in therapy evaluation. Pt admitted via ED on 03/07/20 after a fall in the barn and experiencing right hip pain. Pt is currently s/p IMN on right hip 03/09/20. Pt has a past medical history of HTN, Hyperlipidemia, history of CVAs, and A-fib. Pt claims prior to his fall he lived at home alone and was completely independent with all ADLs' and IADL's. pt did not require AE Subjective This hurts. Objective Patient Orientation Person,Place,Birthday Upper Extremity Gross ROM WFL Bed Mobility bed mobility-scooting,bed mobility - supine/sit,bed mobility - rolling Assist Level Moderate x 1 (50% assist) Transfer Training Sit/Stand Transfer Assist Level Moderate x 1 (50% assist) Chair Transfer Ability Moderate x 1 (50% assist) Chair Transfer Technique Sit to/from Ambulatory Chair Transfer Assistive Devices Rolling Walker Rehab OT IP prob,goals,plan Problems Date of Evaluation: 03/10/20 OT IP Problems Bed Mobility,Transfers,Gait, Balance,Self care,Safety Rehab Potential Rehab Potential Good Equipment Needs Assistive Devices Rolling / Wheeled Walker Plan OT intervention Plan Bed Mobility,Transfers,Gait, Balance,Self care,Safety, Therapeutic Exercise OT Plan Frequency Daily Duration LOS Discharge Goals Bed Mobility Ability Assistance x1 Sit to Stand Chair Transfer Ability Minimal x 1 (25% assist) Chair Transfer Ability Minimal x 1 (25% assist) Chair Transfer Technique Sit to/from Ambulatory Chair Transfer Assistive Devices Rolling Walker Feeding Ability Independent Lower Body Dressing Ability Assistance X1 Upper Body Dressing Ability Standby Assistance Bathing Ability Assistance x1 Performing Toilet Hygiene Ability Standby Assistance Overall Commode/To
--- NOTE | 2020-03-10 12:15 | PC.NURSE ---
PT C/O TENDERNESS IN SUPRAPUBIC AREA THIS AM, CHECKED PT DUEÑAS CATHETER AND IT DID NOT SEEM THAT IT WAS DRAINING APPROPRIATELY, THIS NURSE DEFLATED THE BUBBLE ANCHOR OF THE DUEÑAS AND ADVANCED IT, DUEÑAS APPEARED TO DRAIN A LARGE AMOUNT OF URINE, BALLOON WAS INFLATED AND DUEÑAS ANCHORED, DARK TEA COLORED URINE NOTED TO BE DRAINING AT TIS TIME, PT STATES THAT DISCOMFORT HAS SUBSIDED AT THIS TIME.
--- NOTE | 2020-03-10 12:55 | DIET.NUTRFU ---
75% PO intakes, recorded post op weight gain of 28#. Pt with c/o food is under seasoned. Provided education on menu selections and encouraged him to request snacks/replacement meals if he is unhappy with meal. Pt has been educated on potential warfarin/vit k interaction and prioritizing protein for fracture healing.
--- NOTE | 2020-03-10 13:09 | SW/DCPLANNER ---
SENT A TEXT MESSAGE TO VENKAT AT [facility] TO SEE IF PATIENT IS A CANDIDATE FOR [facility], VENKAT STATED SHE IS WORKING ON A PRESCREEN AND WILL LET US KNOW WHEN A BED WILL BE AVAILABLE FOR HIM TO COME.. I HAVE ASKED HER TO FOLLOW UP WITH ME ONCE SHE HAS A CONFIRMED DATE...
--- NOTE | 2020-03-10 15:21 | PC.NURSE ---
HE IS AOX4, HE HAS BEEN UP TO THE CHAIR FOR MOST OF THE SHIFT TODAY, ATTEMPTED TO AMBULATE WITH PT THIS AFTERNOON AND TOOK ROUGHLY SIX STEPS, PT HAS ONLY REQUIRED PAIN MEDICATION X1 THIS SHIFT, MEDICATED WIHT PRN NORCO PER MAR WITH GOOD EFFECTIVENESS, PT DUEÑAS CATH D/C TODAY, 600ML OF TEA COLORED URINE DRAINED, SMALL BLOOD CLOTS NOTICEABLE IN DUEÑAS TUBING, PT VSS AT TIME OF WRITING, SPOKE WITH CARDINAL SANTOS THIS SHIFT REGARDING PT PLACEMENT, NO ESTIMATION OF TIMELINE FOR PLACEMENT AT THIS TIME, PT HAS BEEN TOLERATING DIET WELL WITH NO C/O N/V/D, TOLERATES ROOM AIR WITH NO SOA NOTED, PT REMAINS SAFE, WILL CONTINUE TO MONITOR.
--- NOTE | 2020-03-10 15:35 | HMH.ORTHPN ---
Subjective Date: 03/10/20 Time: 15:00 Principal diagnosis: Fracture neck of femur, right Interval history: Patient is a 80-year-old male, status post cephalo-medullary nailing right femur, post op day #1. He is sitting out in a chair and appears comfortable; patient says he is doing well and is eating and drinking well. He says he has very little pain and it is well controlled with as needed medication. No history of any fevers, chills or rigors. No history of any nausea, vomiting, chest pain or SOB. Patient had some catheter related hematuria and was seen by Dr. Byrd for this. PN: Obj Ex Vital signs: Temp Pulse Resp BP Pulse Ox 98.6 F 103 H 20 133/87 91 L 03/10/20 08:00 03/10/20 08:00 03/10/20 08:00 03/10/20 08:00 03/10/20 08:00 Narrative: Laboratory Results - last 24 hr 03/09/20 20:25: PT 13.5 H, INR 1.24 H 03/10/20 06:56: WBC 12.6 H, RBC 4.25 L, Hgb 11.4 L, Hct 36.2 L, MCV 85.2, MCH 26.7 L, MCHC 31.4 L, RDW 16.7, Plt Count 164, MPV 9.6, Neut % (Auto) 79.6, Lymph % (Auto) 10.0, [place] % (Auto) 10.2 H, Eos % (Auto) 0.0 L, Baso % (Auto) 0.3, Neut # (Auto) 10.1 H, Lymph # (Auto) 1.3, [place] # (Auto) 1.3 H, Eos # (Auto) 0.0, Baso # (Auto) 0.0 03/10/20 06:56: Sodium 135 L, Potassium 4.3, Chloride 107, Carbon Dioxide 25, Anion Gap 7.3, BUN 20, Creatinine 1.00, Estimated Creat Clear 105, Estimated GFR 72, Est GFR ( Amer) 87, Glucose 129 H, Calcium 8.0 L, Total Bilirubin 1.2, AST 94 H D, ALT 25 D, Alkaline Phosphatase 68, Total Protein 5.4 L, Albumin 2.8 L, Globulin 2.6, Albumin/Globulin Ratio 1.1 Objective: Vitals,I&O,and Labs: I reviewed her vital signs, lab results, medication, nursing notes, medical progress notes and also discussed with the nursing staff regarding her progress. Exam General appearance: Alert, awake, no acute distress Cardiovascular: regular rate & rhythm Respiratory: no respiratory distress; speaks in full sentences ABD: soft and nontender. Skin: no gross abnormalities Neuro: alert, awake oriented x 3 Psych: Appropriate mood and affect On examination of the right lower extremity, the limb lengths are equal. The alignment is neutral. The dressings over the hip/thigh are clean, dry and intact. Attempted movements of the hip are painful. Distal neurovascular status is intact. Distal pulses are 1+. Distal sensation is intact to light touch throughout. No motor deficits noted distally. Calf is soft and nontender. No clinical signs of DVT noted. - Urinary Catheter Management Carbone Cath placed during this visit: no Progress Note: A&P (1) Closed right hip fracture Status: Acute (2) Hypertension Status: Chronic (3) Hyperlipidemia Status: Chronic (4) History of CVA (cerebrovascular accident) Status: Chronic (5) Atrial fibrillation Status: Chronic (6) Hematuria Status: Acute (7) Suprapubic pain Status: Acute Assessment and Plan for All Diagnoses:: I have reviewed the clinical and operative findings and procedure performed progress with the patient. Patient is doing well and advised him to continue mobilization weight bearing as tolerated with the help of physical therapy. Discontinue IV fluids as patient is eating and drinking well. Carbone's catheter was earlier DC'd today. Continue PT/OT, pain management with as needed narcotic analgesics. Care management looking into discharge planning-is likely to be discharged to [facility] for rehab. From an orthopedic standpoint, patient can be discharged tomorrow if medically appropriate. Patient is on long-term anticoagulation and that should cover for postop DVT prophylaxis. Follow-up in my office in 2 weeks? time with check x-ray. Please feel free to call our office at [phone] for any orthopaedic questions. Continue medical management as per Dr. Vasquez.
[2020-03-11 03:54] VITALS: BP 107/71; PULSE 84; RESP 16; TEMP 36.9; O2SAT 96
--- NOTE | 2020-03-11 05:04 | PC.NURSE ---
pt has rested well t/o shift, complained of pain one time and was treated per MAY, dressings remain in place on right hip surgery sites, C/D/I, VSS
[2020-03-11 05:10] VITALS: BMI 35.6
--- NOTE | 2020-03-11 05:27 | PC.NURSE ---
lungs sounds CTA
[2020-03-11 08:00] VITALS: BP 104/75; PULSE 103; RESP 18; TEMP 36.8; O2SAT 97
--- NOTE | 2020-03-11 10:27 | HMH.ACPN2 ---
Internal Medicine - PN: Subj *Date: 03/11/20 *Time: 10:27 Interval history: No new complaints this morning. He did however sleep in the recliner last night stating it was more comfortable than the bed. He worked with physical therapy yesterday and walked a few steps. He is having a fair amount of pain. Catheter was removed yesterday and he has been able to void. Exam Vital signs and Labs for Last 24 Hours: Temp Pulse Resp BP Pulse Ox 98.2 F 103 H 18 104/75 L 97 03/11/20 08:00 03/11/20 08:00 03/11/20 08:00 03/11/20 08:00 03/11/20 08:00 I & O for Last 24 hours: Intake & Output 03/08/20 03/09/20 03/10/20 03/11/20 11:59 11:59 11:59 11:59 Intake Total 120 / 120 120 / 120 2860 / 2860 665 / 665 Output Total 320 / 320 700 / 700 1050 / 1050 200 / 200 Balance -200 / -200 -580 / -580 1810 / 1810 465 / 465 Weight 239 lb 13.807 oz 268 lb 4.841 oz 268 lb 11.896 oz Narrative: He is sitting up in the chair, alert and oriented. He appears in no distress. Lungs are clear. Heart is irregularly irregular. Abdomen is soft and nondistended with no masses or tenderness. Lower extremities show 1+ pretibial edema. Assessment and Plan (1) Closed right hip fracture Status: Acute Qualifiers: Encounter type: initial encounter Qualified Code(s): S72.001A - Fracture of unspecified part of neck of right femur, initial encounter for closed fracture Category: Medical Code(s): S72.001A - Fracture of unspecified part of neck of right femur, initial encounter for closed fracture (2) Hypertension Status: Chronic Category: Medical Code(s): I10 - Essential (primary) hypertension (3) Hyperlipidemia Status: Chronic Category: Medical Code(s): E78.5 - Hyperlipidemia, unspecified (4) History of CVA (cerebrovascular accident) Status: Chronic Category: Medical Code(s): Z86.73 - Personal history of transient ischemic attack (TIA), and cerebral infarction without residual deficits (5) Atrial fibrillation Status: Chronic Category: Medical Code(s): I48.91 - Unspecified atrial fibrillation (6) Hematuria Status: Acute Qualifiers: Hematuria type: gross Qualified Code(s): R31.0 - Gross hematuria Category: Medical Code(s): R31.9 - Hematuria, unspecified (7) Suprapubic pain Status: Acute Category: Medical Code(s): R10.2 - Pelvic and perineal pain - Assessment and plan all Dx Assessment and Plan for all problems:: Stable postop. Continue per orders. Monitor INR.
[2020-03-11 16:00] VITALS: BP 138/70; PULSE 95; RESP 16; TEMP 36.9; O2SAT 97
--- NOTE | 2020-03-11 16:28 | PC.NURSE ---
Pt has been pleasant and cooperative this shift. A&O X4. Pt has complained of pain X1 and has been medicated with [place] per MAR. Pt immediately complained of nausea after administration. Zofran was administered and pt received no relief. Dr. Mack DC'd the [place], started Percocet, and started Phenergan. Pt has had no complaints of nausea since. Pt has been up in the chair for the entire shift thus far. Pt ambulates with assistance X1 and the use of a walker. Pt uses the urinal to void dark, tea-colored urine without issue. No BM this shift. RT hip surgical dressing C/D/I. Generalized non-pitting edema noted to BLE. 20 G peripheral IV in the LT AC is patent and infusing NS @ 50 ML/HR. VSS. Call light within reach. Will continue to monitor.
[2020-03-11 19:10] VITALS: BP 113/67; PULSE 90; RESP 16; TEMP 37.4; O2SAT 91
[2020-03-11 20:00] VITALS: O2SAT 91
[2020-03-12 03:33] VITALS: O2SAT 95
[2020-03-12 03:46] VITALS: BP 108/77; PULSE 100; RESP 16; TEMP 36.9; O2SAT 95
[2020-03-12 04:48] VITALS: BMI 34.5
[2020-03-12 07:21] LABS: INR 1.27 (0.9-1.1); Prothrombin Time 12.9 seconds (9.4-11.8)
[2020-03-12 07:25] LABS: Chloride 107 mmol/L (98-107)
[2020-03-12 07:26] LABS: Potassium 3.9 mmoL/L (3.5-5.1); Sodium 137 mmol/L (136-145)
[2020-03-12 07:28] LABS: Alanine Aminotransferase 21 U/L (12-78); Aspartate Amino Transferase 49 U/L (17-59); Blood Urea Nitrogen 36 mg/dl (9-20); Creatinine Clearance Estimated 85 mL/min (50-200); Estimated Glomerular Filt Rate 59 ml/min (>60); GFR (African American) 71 ML/MIN (>60)
[2020-03-12 07:29] LABS: Albumin Level 2.9 g/dl (3.5-5.0); Alkaline Phosphatase 62 U/L (38-126); Anion Gap 7.9 mEq/L (5-15); Bilirubin,Total 1.1 mg/dl (0.2-1.3); Calcium 8.1 mg/dl (8.4-10.2); Carbon Dioxide 26 mmol/L (22.0-30.0); Globulin 2.8 g/dL (1.3-3.2); Glucose 101 mg/dl (74-100); Total Protein,Serum 5.7 g/dl (6.3-8.2)
[2020-03-12 08:00] VITALS: BP 125/80; PULSE 86; RESP 18; TEMP 36.8; O2SAT 96
--- NOTE | 2020-03-12 09:32 | HMH.ORTHPN ---
Subjective Date: 03/11/20 Time: 13:35 Principal diagnosis: Fracture neck of femur, right Interval history: Patient is a 72-year-old male, status post cephalo-medullary nailing right femur, post op day 2. He is sitting out in a chair and appears comfortable; he says he is having a lot of nausea/stomach discomfort. He also says he could not sleep in the bed last night and slept in the recliner. He also reports significant pain over the right hip. He says he worked with physical therapy and only managed to a few steps. No history of any fevers, chills or rigors. No history of any chest pain or SOB. The Carbone is catheter was removed yesterday and he has been able to void without problems. PN: Obj Ex Vital signs: Temp Pulse Resp BP Pulse Ox 98.3 F 86 18 125/80 96 03/12/20 08:00 03/12/20 08:00 03/12/20 08:00 03/12/20 08:00 03/12/20 08:00 Narrative: Objective: Vitals, I&O and Labs: I reviewed the vital signs, lab results, medication, nursing notes, medical progress notes and also discussed with the nursing staff regarding his progress. Exam: General appearance: Alert, awake, no acute distress; obese Cardiovascular: regular rate & rhythm Respiratory: no respiratory distress; speaks in full sentences ABD: soft and nontender. Skin: no gross abnormalities Neuro: alert, awake oriented x 3 Psych: Appropriate mood and affect On examination of the right lower extremity, the limb lengths are equal. The alignment is neutral. The dressings over the hip/thigh are clean, dry and intact. I have changed the surgical dressings and applied small bordered gauze dressings over the incisions. All the incisions are clean and dry. No signs of infection or other complications noted. Attempted movements of the hip are painful. Distal neurovascular status is intact. Distal pulses are 1+. Distal sensation is intact to light touch throughout. No motor deficits noted distally. Calf is soft and nontender. No clinical signs of DVT noted. - Urinary Catheter Management Carbone Cath placed during this visit: no Progress Note: A&P (1) Closed right hip fracture Status: Acute (2) Hypertension Status: Chronic (3) Hyperlipidemia Status: Chronic (4) History of CVA (cerebrovascular accident) Status: Chronic (5) Atrial fibrillation Status: Chronic (6) Hematuria Status: Acute (7) Suprapubic pain Status: Acute Assessment and Plan for All Diagnoses:: I have reviewed the clinical findings and progress with the patient. Patient is having a lot of nausea and his pain is not well controlled with the current narcotic regimen. I have changed his medication and ordered Percocet as well as promethazine for nausea. Continue PT/OT, mobilization weightbearing as tolerated on the right lower extremity and pain management with as needed narcotic analgesics. I understand patient has been accepted for rehab at [facility]. From an orthopedic standpoint, patient can be discharged when medically appropriate. Patient is on long-term Coumadin and that should cover for his DVT prophylaxis. Follow-up in my office in 2 weeks? time with check x-ray. Please feel free to call our office at [phone] for any orthopaedic questions. Continue medical management as per Dr. Vasquez.
--- NOTE | 2020-03-12 09:33 | HMH.ORTHPN ---
Subjective Date: 03/12/20 Time: 09:15 Principal diagnosis: Fracture neck of femur, right Interval history: Patient is a 72-year-old male, status post cephalo-medullary nailing right femur, post op day 3. He is lying down in the bed and appears comfortable. He says he is doing well better today and complains of less pain and less nausea following change of his medication yesterday. He also reports that he managed to sleep in the bed last night. No history of any fevers, chills or rigors. No history of any chest pain or SOB. Patient is waiting to be transferred to [facility] for rehab. PN: Obj Ex Vital signs: Temp Pulse Resp BP Pulse Ox 98.3 F 86 18 125/80 96 03/12/20 08:00 03/12/20 08:00 03/12/20 08:00 03/12/20 08:00 03/12/20 08:00 Narrative: Laboratory Results - last 48 hr 03/12/20 03/12/20 06:30 06:30 PT 12.9 H INR 1.27 H Sodium 137 Potassium 3.9 Chloride 107 Carbon Dioxide 26 Anion Gap 7.9 BUN 36 H D Creatinine 1.20 Estimated Creat Clear 85 Estimated GFR 59 Est GFR ( Amer) 71 Glucose 101 H Calcium 8.1 L Total Bilirubin 1.1 AST 49 D ALT 21 Alkaline Phosphatase 62 Total Protein 5.7 L Albumin 2.9 L Globulin 2.8 Albumin/Globulin Ratio 1.0 L Objective: Vitals, I&O and Labs: I reviewed the vital signs, lab results, medication, nursing notes, medical progress notes and also discussed with the nursing staff regarding his progress. Exam: General appearance: Alert, awake, no acute distress; obese Cardiovascular: regular rate & rhythm Respiratory: no respiratory distress; speaks in full sentences ABD: soft and nontender. Skin: no gross abnormalities Neuro: alert, awake oriented x 3 Psych: Appropriate mood and affect On examination of the right lower extremity, the limb lengths are equal. The alignment is neutral. The dressings over the hip/thigh are clean, dry and intact. Attempted movements of the hip are painful. Distal neurovascular status is intact. Distal pulses are 1+. Distal sensation is intact to light touch throughout. No motor deficits noted distally. Calf is soft and nontender. No clinical signs of DVT noted. - Urinary Catheter Management Carbone Cath placed during this visit: no Progress Note: A&P (1) Closed right hip fracture Status: Acute (2) Hypertension Status: Chronic (3) Hyperlipidemia Status: Chronic (4) History of CVA (cerebrovascular accident) Status: Chronic (5) Atrial fibrillation Status: Chronic (6) Hematuria Status: Acute (7) Suprapubic pain Status: Acute Assessment and Plan for All Diagnoses:: I have reviewed the clinical findings and progress with the patient. Patient is doing well from an orthopedic standpoint and advised him to continue mobilization weight bearing as tolerated. Continue PT/OT, pain management with as needed narcotic analgesics. I understand patient is accepted for rehab at [facility] and is awaiting transfer there. From an orthopedic standpoint, patient can be discharged if medically appropriate. Patient is on long-term warfarin which should cover for his DVT prophylaxis. Follow-up in my office in 2 weeks? time with check x-ray. Please feel free to call our office at [phone] for any orthopaedic questions. Continue medical management as per Dr. Vasquez.
--- NOTE | 2020-03-12 09:44 | P.PN_ITS ---
Internal Medicine - PN: Subj *Date: 03/12/20 *Time: 09:44 Interval history: States he feels a little better today. He had some nausea yesterday likely related to pain medication which was changed by Dr. Mack. He was able to sleep in the bed last night. No urinary complaints. Exam Vital signs and Labs for Last 24 Hours: Temp Pulse Resp BP Pulse Ox 98.3 F 86 18 125/80 96 03/12/20 08:00 03/12/20 08:00 03/12/20 08:00 03/12/20 08:00 03/12/20 08:00 Laboratory Results - last 24 hr 03/12/20 06:30: PT 12.9 H, INR 1.27 H 03/12/20 06:30: Sodium 137, Potassium 3.9, Chloride 107, Carbon Dioxide 26, Anion Gap 7.9, BUN 36 H D, Creatinine 1.20, Estimated Creat Clear 85, Estimated GFR 59, Est GFR ( Amer) 71, Glucose 101 H, Calcium 8.1 L, Total Bilirubin 1.1, AST 49 D, ALT 21, Alkaline Phosphatase 62, Total Protein 5.7 L, Albumin 2 .9 L, Globulin 2.8, Albumin/Globulin Ratio 1.0 L I & O for Last 24 hours: Intake & Output 03/09/20 03/10/20 03/11/20 03/12/20 11:59 11:59 11:59 11:59 Intake Total 120 / 120 2860 / 2860 1145 / 1145 2540 / 2540 Output Total 700 / 700 1050 / 1050 200 / 200 650 / 650 Balance -580 / -580 1810 / 1810 945 / 945 1890 / 1890 Weight 268 lb 4.841 oz 268 lb 11.896 oz 260 lb 12.909 oz Narrative: He is lying comfortably in bed. Alert and oriented. Color is good. Lungs are clear. Heart is irregularly irregular. Soft nontender. Extremities no calf tenderness. Assessment and Plan (1) Closed right hip fracture Status: Acute Qualifiers: Encounter type: initial encounter Qualified Code(s): S72.001A - Fracture of unspecified part of neck of right femur, initial encounter for closed fracture Category: Medical Code(s): S72.001A - Fracture of unspecified part of neck of right femur, initial encounter for closed fracture (2) Hypertension Status: Chronic Category: Medical Code(s): I10 - Essential (primary) hypertension (3) Hyperlipidemia Status: Chronic Category: Medical Code(s): E78.5 - Hyperlipidemia, uns pecified (4) History of CVA (cerebrovascular accident) Status: Chronic Category: Medical Code(s): Z86.73 - Personal history of transient ischemic attack (TIA), and cerebral infarction without residual deficits (5) Atrial fibrillation Status: Chronic Category: Medical Code(s): I48.91 - Unspecified atrial fibrillation (6) Hematuria Status: Acute Qualifiers: Hematuria type: gross Qualified Code(s): R31.0 - Gross hematuria Category: Medical Code(s): R31.9 - Hematuria, unspecified (7) Suprapubic pain Status: Acute Category: Medical Code(s): R10.2 - Pelvic and perineal pain - Assessment and plan all Dx Assessment and Plan for all problems:: Stable postop. INR remains subtherapeutic therefore will continue Lovenox. Physical therapy. Awaiting disposition plans per care management.
--- NOTE | 2020-03-12 10:43 | PC.NURSE ---
spoke with Otto at [facility]. pt does have a bed available. 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 Vasquez who stated he will discharge pt tomorrow. Otto said that would fine, pt would NOT lose bed as long as he comes tomorrow.
[2020-03-12 16:00] VITALS: BP 110/62; PULSE 86; RESP 20; TEMP 37; O2SAT 96
--- NOTE | 2020-03-12 17:33 | PC.NURSE ---
Patient is resting in bed. Has had a good day and has expressed no issues or concerns. Plan is to go to [facility] tomorrow for rehab. Patient is alert and oriented, no n/v/d/, appetite has been good, eaten 100% of meals. No bm today. Patient has used urinal, output at 600 as of right now, urine is pale yellow. Skin is intact, surgical dressing is intact. Patient has only requested one dose of pain medication today. Will continue to monitor.
[2020-03-12 19:23] VITALS: BP 93/74; PULSE 103; RESP 18; TEMP 36.7; O2SAT 95
--- NOTE | 2020-03-13 03:08 | PC.NURSE ---
No acute changes noted. Pt has rested well this shift. Has been using incentive spirometer and has been moving RLE in bed. Pt has c/o some dull aching pain this shift. Medicated per mar with PO pain medication. DSGs to (R) hip is C/D/I. VSS. Pt has used urinal this shift. No other concerns at this time. Pt to be transferred to [facility] today.
[2020-03-13 03:15] VITALS: BP 132/82; PULSE 82; RESP 18; TEMP 37.1; O2SAT 95
[2020-03-13 04:57] VITALS: BMI 33.8
[2020-03-13 07:05] LABS: INR 1.48 (0.9-1.1); Prothrombin Time 15.9 seconds (9.4-11.8)
[2020-03-13 07:29] VITALS: BP 126/77; PULSE 67; RESP 16; TEMP 36.6; O2SAT 97
--- NOTE | 2020-03-13 08:57 | HMH.ACPN2 ---
<Nyasia Sung - Last Filed: 03/13/20 08:57> Internal Medicine - PN: Subj *Date: 03/13/20 *Time: 08:57 Interval history: Patient states he is going to [facility] today for ongoing rehab. He states his right leg does not work very well. He was able to stand up turn around and sit back down in the bed on his own with physical therapy yesterday. He slept some last night. He is not eating very well but he does not like the food. He is voiding QS. Bowels have not moved. He denies chest pain and shortness of breath. Exam Vital signs and Labs for Last 24 Hours: Temp Pulse Resp BP Pulse Ox 97.8 F 67 16 126/77 97 03/13/20 07:29 03/13/20 07:29 03/13/20 07:29 03/13/20 07:29 03/13/20 07:29 Laboratory Results - last 24 hr 03/13/20 06:34: PT 15.9 H, INR 1.48 H I & O for Last 24 hours: Intake & Output 03/10/20 03/11/20 03/12/20 03/13/20 11:59 11:59 11:59 11:59 Intake Total 2860 / 2860 1145 / 1145 2540 / 2540 2581 / 2581 Output Total 1050 / 1050 200 / 200 650 / 650 2325 / 2325 Balance 1810 / 1810 945 / 945 1890 / 1890 256 / 256 Weight 268 lb 4.841 oz 268 lb 11.896 oz 260 lb 12.909 oz 255 lb 4.725 oz - Constitutional no acute distress - *Routine Respiratory Exam Present: CTA bilaterally (A&P) - *Routine Cardiovascular Exam Present: RRR - *Routine Abdominal Exam Present: soft, normoactive bowel sounds. Absent: tenderness - *Routine Extremities Exam Present: edema (Bilateral lower legs) Comments: 3 dressings on right outer leg are clean and dry - *Routine Neurological Exam Present: alert, oriented X3 Assessment and Plan (1) Closed right hip fracture Status: Acute Qualifiers: Encounter type: initial encounter Qualified Code(s): S72.001A - Fracture of unspecified part of neck of right femur, initial encounter for closed fracture Category: Medical Code(s): S72.001A - Fracture of unspecified part of neck of right femur, initial encounter for closed fracture (2) Hypertension Status: Chronic Category: Medical Code(s): I10 - Essential (primary) hypertension (3) Hyperlipidemia Status: Chronic Category: Medical Code(s): E78.5 - Hyperlipidemia, unspecified (4) History of CVA (cerebrovascular accident) Status: Chronic Category: Medical Code(s): Z86.73 - Personal history of transient ischemic attack (TIA), and cerebral infarction without residual deficits (5) Atrial fibrillation Status: Chronic Category: Medical Code(s): I48.91 - Unspecified atrial fibrillation (6) Hematuria Status: Acute Qualifiers: Hematuria type: gross Qualified Code(s): R31.0 - Gross hematuria Category: Medical Code(s): R31.9 - Hematuria, unspecified (7) Suprapubic pain Status: Acute Category: Medical Code(s): R10.2 - Pelvic and perineal pain - Assessment and plan all Dx Assessment and Plan for all problems:: Patient has been accepted at [facility] and will be transferred there today for ongoing rehab <Stanford Vasquez - Last Filed: 03/13/20 13:21> Internal Medicine - PN: Subj *Date: 03/13/20 *Time: 13:20 Exam Vital signs and Labs for Last 24 Hours: Temp Pulse Resp BP Pulse Ox 97.8 F 67 16 126/77 97 03/13/20 07:29 03/13/20 07:29 03/13/20 07:29 03/13/20 07:29 03/13/20 07:29 Laboratory Results - last 24 hr 03/13/20 06:34: PT 15.9 H, INR 1.48 H I & O for Last 24 hours: Intake & Output 03/11/20 03/12/20 03/13/20 03/14/20 11:59 11:59 11:59 11:59 Intake Total 1145 / 1145 2540 / 2540 2581 / 2581 Output Total 200 / 200 650 / 650 2325 / 2325 Balance 945 / 945 1890 / 1890 256 / 256 Weight 268 lb 11.896 oz 260 lb 12.909 oz 255 lb 4.725 oz Assessment and Plan (1) Closed right hip fracture Status: Acute Qualifiers: Encounter type: initial encounter Qualified Code(s): S72.001A - Fracture of unspecified part of neck of right femur, initial encounter for closed fracture Category: Me
--- NOTE | 2020-03-13 09:00 | HMH.DCSUM ---
General - General Admission date:: 03/07/20 <Stanford Vasquez - 03/13/20 13:23> 03/07/20 <Ana LiliaNyasia - 03/13/20 09:28> Discharge date: 03/13/20 <SungYamilexNyasia - 03/13/20 09:28> HPI HPI: Mr. Richardson is a 80-year-old male with a history of high blood pressure, hyperlipidemia, history of CVA x2, and history of A. fib who was brought in by ambulance for right hip injury. He was working in a barn on a tractor standing on some plastic. The plastic got pulled out from under his feet causing his feet to fly out from under him and he then went airborne and landed on the ground on his right hip. He had severe pain in his right hip and was unable to move or get up. He did hit his head, but had no loss of consciousness, no head pain, no neck pain, and no dizziness. 911 was called and he was transported to [facility] via ambulance. He was given fentanyl during transport. He was evaluated in the emergency room and found to have a right hip fracture. He was admitted and orthopedics was consulted and he was placed in traction. To note, he was on Coumadin due to his A. fib. His primary care doctor is Vasquez Snow at [facility]. <Nyasia Sung - 03/13/20 09:28> Hospital Course Hospital Course: On admission patient was placed in traction for the femur fracture and was started on pain medicine. Patient was seen by cardiology who felt patient was a low risk for surgery. Coumadin was held at this point. He was seen by Dr. Mack who planned surgery once INR was at a safe level. On 03/09/2020 patient had a closed reduction with nailing of the right femur for closed comminuted displaced intertrochanteric fracture of the right femur. He tolerated the procedure well. Postoperatively on 03/10 IV fluids were discontinued. Patient was eating and drinking well. Carbone catheter had been discontinued. He was working with PT and OT. Disposition planning was initiated. He did have some suprapubic pain due to his Carbone. Urology, Dr. Byrd, saw the patient for the gross hematuria. He felt it was due to associated catheter placement and possible trauma from pulling on the catheter at night when in the bed. Color of the urine did improve to a light tea color and CT scan showed no evidence of bladder injury or clot.plan was to monitor his urine color with cystoscopy if bleeding worsen. By 03/12 patient was feeling a little bit better. He had some nausea but this was felt related to the pain medicine which was changed by Dr. Mack. He had no further urinary complaints. INR remained Subtherapeutic and Lovenox was continued. 05/14/2019 patient continued to do well and was accepted at [facility]. He was to be transfered to this facility today for ongoing rehab. He was to continue with Lovenox until INR therapeutic. To be followed up by physicians at [facility]. See data specifics. <Nyasia Sung - 03/13/20 09:28> Objective Vital signs: Temp Pulse Resp BP Pulse Ox 97.8 F 67 16 126/77 97 03/13/20 07:29 03/13/20 07:29 03/13/20 07:29 03/13/20 07:29 03/13/20 07:29 <Stanford Vasquez - 03/13/20 13:23> Temp Pulse Resp BP Pulse Ox 97.8 F 67 16 126/77 97 03/13/20 07:29 03/13/20 07:29 03/13/20 07:29 03/13/20 07:29 03/13/20 07:29 <Nyasia Sung - 03/13/20 09:28> Narrative: Exam Vital signs and Labs for Last 24 Hours: Temp Pulse Resp BP Pulse Ox 97.8 F 67 16 126/77 97 03/13/20 07:29 03/13/20 07:29 03/13/20 07:29 03/13/20 07:29 03/13/20 07:29 Laboratory Results - last 24 hr 03/13/20 06:34: PT 15.9 H, INR 1.48 H I & O for Last 24 hours: Intake & Output 03/10/20 03/11/20 03/12/20 03/13/20 11:59 11:59 11:59 11:59 Intake Total 2860 / 2860 1145 / 1145 2540 / 2540 2581 / 2581 Output Total 1050 / 1050 200 / 200 650 / 650 2325 / 2325 Balance 1810 / 1810 945 / 945 1890 / 1890 256 / 256 Weight 268 lb 4.841 oz 268 lb 11.896 oz 260 lb 12.909 oz 255 lb 4.72
--- NOTE | 2020-03-13 09:29 | SW/DCPLANNER ---
Addendum entered by Lola Calderon 03/13/20 09:42: Dr Shaun Powell is accepting MD at [facility]. [facility] phone: [phone] [facility] fax: [phone] Original Note: Per Alena with [facility] this patient has been accepted to the [facility] unit for today. Patient is medically stable for discharge today. I will relay information to patients nurse. Patient is agreeable with plan and has voiced he prefer an ambulance transportation and is aware he could be billed for this in the future. No further COVID testing is needed per Alena with [facility].
--- NOTE | 2020-03-13 11:37 | PC.NURSE ---
Called report to [facility] and spoke with Son gave report @ 1035, pt left via ambulance at approx 1110, and this nurse called back to let Son know to clarify code status of dni.
== END 2020-03-13 11:10 | DRG 481 ==
LOC: ER 17:16 → 2ND 03-08 07:48
PROVIDERS: Orthopaedic Surgery; Admitting Provider Family Medicine; Emergency Provider Emergency Medicine; PCP Family Medicine; Visit Provider Family Medicine
PROC: 0QS636Z Reposition Right Upper Femur with Intramedullary Internal Fixation Device, Percutaneous Approach (ICD-10-PCS; principal; 2020-03-09 14:15)
DX: S72.141A Displaced intertrochanteric fracture of right femur, initial encounter for closed fracture (principal); I48.20 Chronic atrial fibrillation, unspecified; W18.39XA Other fall on same level, initial encounter; Y92.018 Other place in single-family (private) house as the place of occurrence of the external cause; I10 Essential (primary) hypertension; E78.5 Hyperlipidemia, unspecified; R31.0 Gross hematuria; Z86.73 Personal history of transient ischemic attack (TIA), and cerebral infarction without residual deficits; Z79.01 Long term (current) use of anticoagulants; Z79.899 Other long term (current) drug therapy; Z87.891 Personal history of nicotine dependence; T83.098A Other mechanical complication of other urinary catheter, initial encounter
CPT/HCPCS: 27245; 36415; 70450; 71045; 72125; 73502; 73700; 76000; 80053; 81001; 85025; 85610; 85730; 86328; 86850; 93005; 93306; 96365; 96375; 96376; 97110; 97116; 97162; 97166; 97530; 99284; C1713; C1769; C1776; J2405

== ENCOUNTER → 2020-04-04 09:35 | Outpatient (CLI) | payer MEDICARE, BC, SELFPAY ==
--- NOTE | 2020-04-04 09:44 | XR_ITS ---
PROCEDURE: XR HIP RT 2-3V W/PELVIS CLINICAL INDICATION: rt hip gamma nail Follow-up right hip fracture COMPARISON: CR XR HIP RT 2-3V W/PELVIS from 03/07/2020 FINDINGS: Status post ORIF right intertrochanteric fracture. Gamma nail with long intramedullary bigg remains in place with good alignment of the main fracture fragments. There is medial displacement of the lesser trochanter with some developing callus formation at the base of the lesser trochanter. IMPRESSION: Healing right intertrochanteric fracture status post ORIF Dictated by: Jerry Perry MD 04/04/2020 18:31 Jerry Perry MD in [facility] 04/04/2020 18:31
== END ==
PROVIDERS: PCP Family Medicine; Visit Provider Orthopaedic Surgery
DX: Z09 Encounter for follow-up examination after completed treatment for conditions other than malignant neoplasm (principal); S72.001D Fracture of unspecified part of neck of right femur, subsequent encounter for closed fracture with routine healing
CPT/HCPCS: 73502

== ENCOUNTER → 2020-06-14 13:07 | Outpatient (CLI) | payer MEDICARE, BC, SELFPAY ==
--- NOTE | 2020-06-14 13:18 | XR_ITS ---
PROCEDURE: XR HIP RT 2-3V W/PELVIS CLINICAL INDICATION: sp cloed reduction nailing, right femur Follow-up fracture COMPARISON: CR XR HIP RT 2-3V W/PELVIS from 04/04/2020 FINDINGS: Status post gamma nail and long intramedullary bigg placement for right intertrochanteric fracture. There is good alignment and there is healing of the fracture. The lesser trochanter is displaced medially with developing heterotopic ossification or callus formation at the base of the lesser trochanter. Sclerosis involves the left ilium inferiorly. 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 IMPRESSION: Good alignment status post ORIF Dictated by: Jerry Perry MD 06/14/2020 16:33 Jerry Perry MD in [facility] 06/14/2020 16:33
== END ==
PROVIDERS: PCP Family Medicine; Visit Provider Orthopaedic Surgery
DX: S72.001A Fracture of unspecified part of neck of right femur, initial encounter for closed fracture (principal); Z09 Encounter for follow-up examination after completed treatment for conditions other than malignant neoplasm
CPT/HCPCS: 73502

== ENCOUNTER → 2020-06-19 10:25 | Outpatient (CLI) | payer MEDICARE, BC, SELFPAY ==
--- NOTE | 2020-06-19 10:25 | XR_ITS ---
PROCEDURE: XR DEXA AXIAL SKELETON CLINICAL HISTORY: Screening Recent rt hip fx. COMPARISON: No exams were available for comparison FINDINGS: The right forearm BMD is 0.668 with a T-score of -2.8. The left hip BMD is 0.701 with a T-score of -2.2. The lumbar spine BMD is 1.011 with a T-score of -0.7. IMPRESSION: This patient is considered osteoporotic according to the World Health Organization criteria. Fracture risk is high. Treatment is advised. Based on these results a follow-up exam is recommended in 1 year. Dictated by: Jerry Perry MD 06/20/2020 10:19 Jerry Perry MD in [facility] 06/20/2020 10:19
== END ==
PROVIDERS: PCP Family Medicine; Visit Provider Orthopaedic Surgery
DX: M81.0 Age-related osteoporosis without current pathological fracture (principal)
CPT/HCPCS: 77080

== ENCOUNTER → 2020-09-26 10:18 | Outpatient (CLI) | payer MEDICARE, BC, SELFPAY ==
--- NOTE | 2020-09-26 10:24 | XR_ITS ---
PROCEDURE: XR HIP RT 2-3V W/PELVIS CLINICAL INDICATION: RT gamma nail, sx 03/09/2020 COMPARISON: CR XR HIP RT 2-3V W/PELVIS from 06/14/2020 FINDINGS: S/p ORIF right hip with gamma nail and long intramedullary bigg. No hardware malfunction. Good alignment. No acute fracture or dislocation. Hypertrophic changes noted at the lesser trochanter as before. Sclerosis noted involving the lower SI joint on the left. IMPRESSION: Postsurgical changes with good alignment and no acute finding. Dictated by: Jerry Perry MD 09/26/2020 12:48 Jerry Perry MD in [facility] 09/26/2020 12:48
== END ==
PROVIDERS: PCP Family Medicine; Visit Provider Orthopaedic Surgery
DX: Z09 Encounter for follow-up examination after completed treatment for conditions other than malignant neoplasm (principal)
CPT/HCPCS: 73502

== ENCOUNTER 2021-12-02 09:09 | Emergency (ER) | payer MEDICARE, BC, SELFPAY ==
[2021-12-02 09:20] VITALS: BP 106/73; PULSE 65; RESP 20; TEMP 37.2; O2SAT 95; BMI 32.4
[2021-12-02 09:37] VITALS: BP 106/73; PULSE 65; RESP 20; TEMP 37.2; O2SAT 95
--- NOTE | 2021-12-02 09:44 | EXP.UTC ---
Discharge Plan Disposition Patient Disposition: Home, Self-Care Condition: Good Prescriptions Prescriptions: No Action alendronate 70 mg tablet 70 mg PO WEEKLY famotidine 20 MG tablet 20 mg PO BID Label Comments: take 1 tablet by mouth twice a day lisinopril 10 MG tablet 10 mg PO DAILY Label Comments: take 1 tablet by mouth once daily warfarin 5 MG tablet 5 mg PO DAILY Label Comments: take 1 tablet by mouth once daily allopurinol 300 MG tablet 300 mg PO BID Label Comments: TAKE 1 TABLET TWICE A DAY pravastatin 20 MG tablet 20 mg PO DAILY Label Comments: take 1 tablet by mouth once daily atenolol 50 MG tablet 50 mg PO DAILY Label Comments: take 1 tablet by mouth once daily ergocalciferol (vitamin D2) 50,000 UNIT capsule 1 tab PO WEEKLY omeprazole 40 MG capsule,delayed release(DR/EC) 40 mg PO DAILY potassium chloride 10 MEQ capsule, extended release 10 meq PO DAILY acetaminophen 325 MG tablet 650 mg PO Q4HP PRN (Reason: As Needed For Fever Or Pain) 0RF enoxaparin 30 MG/0.3 ML syringe 30 mg SQ Q12H 0RF Referrals Follow up/Referrals: Vasquez Snow [Primary Care Provider] - See instructions Clinical Impressions Clinical Impression: Acute upper respiratory infection Instructions Patient Instructions: DI for Viral Upper Respiratory Infection -- Adult Discharge ED Provider: Pooja Coon [facility] General Stated complaint: sore throat, fever, CROFT Mode of Arrival: Ambulatory Source of Information: Patient Limitations: No Limitations Time Seen by Provider: 12/02/21 09:35 Description of Symptoms (Recalled from Triage Doc. by RN): PATIENT C/O HEADACHE AND FEVER THAT STARTED YESTERDAY HEENT Symptoms (Recalled from RN notes): Yes Resp Symptoms (Recalled from RN notes): No Skin Symptoms (Recalled from RN notes): No MS Symptoms (Recalled from RN notes): No Functional Status (Recalled from RN notes): WNL History of Present Illness Provider Complaint: Pt relates that he started feeling bad yesterday with a headache, runny nose, occasional cough, and fever. He states that he took a home Covid test that was positive but was advised by girlfriend that he needed to be seen for an official diagnosis. He has taken Tylenol for his symptoms. Related Data Home Medications Medication Instructions Recorded Confirmed allopurinol 300 mg tablet 300 mg PO BID gout 08/29/17 04/04/20 atenolol 50 mg tablet 50 mg PO DAILY blood pressure 08/29/17 04/04/20 famotidine 20 mg tablet 20 mg PO BID acid reflux 08/29/17 04/04/20 lisinopril 10 mg tablet 10 mg PO DAILY blood pressure 08/29/17 04/04/20 pravastatin 20 mg tablet 20 mg PO DAILY Cholesterol 08/29/17 04/04/20 warfarin 5 mg tablet 5 mg PO DAILY Blood thinner 08/29/17 04/04/20 ergocalciferol (vitamin D2) 1,250 1 tab PO WEEKLY Supplement 03/07/20 04/04/20 mcg (50,000 unit) capsule omeprazole 40 mg capsule,delayed 40 mg PO DAILY acid reflux 03/08/20 04/04/20 release potassium chloride 10 mEq 10 meq PO DAILY Supplement 03/10/20 04/04/20 capsule,extended release alendronate 70 mg tablet 70 mg PO WEEKLY 09/26/20 Previous Rx's Medication Instructions Recorded acetaminophen 325 mg tablet 650 mg PO Q4HP PRN As Needed For 03/13/20 Fever Or Pain enoxaparin 30 mg/0.3 mL 30 mg (0.3 mL) SQ Q12H 03/13/20 subcutaneous syringe Allergies Allergy/AdvReac Type Severity Reaction Status Date / Time No Known Allergies Allergy Verified 06/14/20 14:03 Worker's Comp Is this a Worker's Comp case?: No [facility] Medical History (Updated 12/02/21 @ 09:47 by Pooja Coon APRN) Asthma History of stroke Hypertension Surgical History (Updated 12/02/21 @ 09:32 by Itzel Amezcua RN) History of appendectomy History of open heart surgery Social History (Updated 12/02/21 @ 09:32 by Itzel Amezcua, SIRENA) Smoking Status: Former smoker second hand
== END 2021-12-02 09:50 | disposition home or self-care (01) ==
PROVIDERS: Emergency Provider Nurse Practitioner Family; PCP Family Medicine
DX: U07.1 COVID-19 (principal)
CPT/HCPCS: 99212; C9803; G0463; U0003; U0005

== ENCOUNTER → 2022-06-06 14:41 | Outpatient (CLI) | payer MEDICARE, BC, SELFPAY ==
--- NOTE | 2022-06-06 14:46 | XR_ITS ---
FINAL REPORT CLINICAL HISTORY: Right hip pain, gamma nail COMPARISON: 09/26/2020 FINDINGS: RIGHT HIP Two views of the right hip demonstrate no acute fracture or dislocation. There is a right femoral intramedullary bigg in place. A chronic, proximal right femoral fracture is again seen. There are mild degenerative changes. Soft tissues are unremarkable. IMPRESSION: No acute bony abnormality. Reviewed, Interpreted and Dictated by Yaw Julio III, MD Transcribed by Tara Dent Authenticated and [facility]
== END ==
PROVIDERS: PCP Family Medicine; Visit Provider Physician Assistant Surgical
DX: M25.551 Pain in right hip (principal)
CPT/HCPCS: 73502

== ENCOUNTER → 2022-06-24 14:23 | Outpatient (POV) | payer MEDICARE, BC, SELFPAY ==
[2022-06-24 14:30] VITALS: BP 133/94; PULSE 70; RESP 18; O2SAT 98; BMI 33.0
--- NOTE | 2022-06-24 14:41 | EXP.PAIN.OV ---
HPI Data of Consult Patient: new to practice Consult date: 06/24/22 Requesting Physician: Thania Holloway APRN Primary Care Provider: Vasquez Snow Consult Narrative Reason for consult: Right hip pain, right knee pain History of present illness: Mr. Richardson is a 82 year old male who presents today as a new patient. He is a referral from Dr. Holloway's office. Today he rates his pain a 9 out of 10. Patient states he has right hip and right knee pain. Patient does state this is related to an injury where he fell and fractured his right hip and had a replaced [place] [address] Mack. Patient states that he has continued to have increased pain ever since that is progressively worsened over time. He does describe this as a constant sharp, achy sensation that is worse with increased activity. He states when he is sitting he has no pain however with just getting up to standing position he has significant issues. Patient was previously a patient at our office a couple of years ago. He has had multiple injections that did provide significant relief. He describes his knee pain as a sharp pain that goes from the front to the back of his knee. He denies any previous replacement. Patient has tried [id number] Tylenol along with heat and cream such as IcyHot and Biofreeze with no additional relief. Patient did go to physical therapy at [facility] following his hip replacement but states this did provide significant improvement. He does still continue to do at home exercise and stretching for longer than 6 weeks however he has not noticed any additional improvement. Patient is on Coumadin that is prescribed by his primary care doctor. He is not currently on any scheduled medications. His Lalit is [id number]. It has been reviewed and appropriate. CC: Thania Holloway APRN [facility] Disclaimer: The information contained in this section may have been updated after the patient was seen, as this information can be updated by other users. Medical History Asthma History of stroke Hypertension Surgical History History of appendectomy History of open heart surgery Social History (Updated 06/24/22 @ 15:07 by Solange Clark RN) Smoking Status: Former smoker second hand exposure: No alcohol intake: current substance use type: denies use current occupational status: retired Travel in the last 8 weeks: None household members: none housing: house current occupational exposures/hazards: No caffeine: No Review of Systems Review of Systems Review of systems:: pertinent systems reviewed and negative unless documented below Review of systems (narrative): Review of Systems: General: No recent weight changes, no fever, no sleep disturbances Respiratory: No cough, no shortness of air, no recurring pulmonary infections Cardiovascular/peripheral vascular: No chest pain, no palpitations, no edema, no shortness of breath Gastrointestinal: No new onset incontinence, normal bowel movements reported Genitourinary: No new onset incontinence Musculoskeletal: Right hip pain, right knee pain Psychiatric: [Normal mood/affect] Neurological: [Denies weakness in extremities], [denies balance issues] Meds Home Medications and Allergies Home Medications Medication Instructions Recorded Confirmed Type allopurinol 300 mg tablet 300 mg PO BID gout 08/29/17 06/24/22 History atenolol 50 mg tablet 50 mg PO DAILY blood pressure 08/29/17 06/24/22 History famotidine 20 mg tablet 20 mg PO BID acid reflux 08/29/17 06/24/22 History lisinopril 10 mg tablet 10 mg PO DAILY blood pressure 08/29/17 06/24/22 History pravastatin 20 mg tablet 20 mg PO DAILY Cholesterol 08/29/17 06/24/22 History warfarin 5 mg tablet 5 mg PO DAILY Blood thinner 08/29/17 06/24/22 History ergocalciferol (vitamin D2) 1,250 1 tab PO WEEKLY Supplement 03/07/20 06/24/22 History
== END ==
PROVIDERS: PCP Family Medicine; Visit Provider Nurse Practitioner Family
DX: M16.11 Unilateral primary osteoarthritis, right hip (principal); M25.551 Pain in right hip; M25.561 Pain in right knee
CPT/HCPCS: 99202; G0463

== ENCOUNTER → 2022-06-24 14:58 | Outpatient (CLI) | payer MEDICARE, BC, SELFPAY ==
--- NOTE | 2022-06-24 15:02 | XR_ITS ---
FINAL REPORT CLINICAL HISTORY: RT KNEE PAIN, patient states he fell 2 years ago. Patient to start knee injections through pain management soon. COMPARISON: August 2020 FINDINGS: 3 views of the right knee were obtained. There is an intramedullary bigg in the distal femur that is incompletely visualized but appears similar to the prior exam. There is no acute fracture or dislocation. There is mild degenerative disease. There is no knee joint effusion. IMPRESSION: Postoperative change with mild degenerative disease. Reviewed, Interpreted and Dictated by Ava Da Silva MD Transcribed by Price Quintana Authenticated and [facility]
== END ==
PROVIDERS: PCP Family Medicine; Visit Provider Nurse Practitioner Family
DX: M25.561 Pain in right knee (principal)
CPT/HCPCS: 73562; 99202; G0463

== ENCOUNTER 2022-07-02 13:22 | Day surgery (SDC) | payer MEDICARE, BC, SELFPAY ==
[2022-07-02 13:39] VITALS: BP 124/91; PULSE 65; RESP 18; TEMP 36.5; O2SAT 98; BMI 33.7
[2022-07-02 13:52] VITALS: BP 135/88; PULSE 84; RESP 18; O2SAT 97
--- NOTE | 2022-07-02 13:55 | EXP.PAIN.PRO ---
Procedure Date: 07/02/22 Time: 13:50 Anesthesiologist:: Bryon Brown CRNA Complications:: None Pre-procedure Diagnosis:: Osteoarthritis right knee. Chronic right knee pain. Post-procedure Diagnosis:: Same. Indications for Procedure:: Patient is a very pleasant 82-year-old male that comes our clinic today with right knee pain. He describes it as constant, dull, aching. He reports pain increases significantly with ambulation. He uses a cane for stabilization. He rates his pain 8/10. Procedure Details:: Informed consent was obtained risk and benefits of the procedure were explained to the patient. Patient was taken the procedure room right knee was prepped using ChloraPrep. A 25-gauge needle was used to inject 10 mL bupivacaine 0.25% and Depo-Medrol 40 mg into the right knee. The patient tolerated the procedure well with no complications. Plan and Disposition:: Patient was discharged without incident.
[2022-07-02 14:01] VITALS: BP 124/91; PULSE 65; RESP 18; TEMP 36.5
== END 2022-07-02 14:02 | disposition home or self-care (01) ==
PROVIDERS: PCP Family Medicine; Visit Provider Nurse Anesthetist, Certified Registered
DX: M17.11 Unilateral primary osteoarthritis, right knee (principal); M25.561 Pain in right knee; G89.29 Other chronic pain
CPT/HCPCS: 20610; J1040

== ENCOUNTER 2022-07-16 09:55 | Day surgery (SDC) | payer MEDICARE, BC, SELFPAY ==
[2022-07-16 10:12] VITALS: BP 113/70; PULSE 66; RESP 18; TEMP 36.6; O2SAT 97; BMI 33.7
[2022-07-16 10:27] VITALS: BP 131/81; PULSE 68; RESP 18; O2SAT 97
[2022-07-16 10:29] VITALS: BP 131/81; PULSE 68; RESP 18; O2SAT 97
--- NOTE | 2022-07-16 10:35 | EXP.PAIN.PRO ---
Procedure Date: 07/16/22 Time: 10:30 Anesthesiologist:: Bryon Brown CRNA Complications:: None Pre-procedure Diagnosis:: Osteoarthritis right hip. Status post right hip fracture. Right femur fracture. Post-procedure Diagnosis:: Same. Indications for Procedure:: Patient is a very pleasant 82-year-old male that comes our clinic today for right intra-articular hip injection. Patient is 2 years status post right hip and femur fracture. Patient has right hip pain he describes as constant, dull, aching. Also complains of right knee pain. Patient has lag screw in the right hip as well as intramedullary bigg in the right femur. Hardware seems to be intact without issues. However, he has osteoarthritis on the right hip. Procedure Details:: Details of the procedure were explained to the patient. The patient was taken to procedure room placed in the supine position. The area over the right hip was cleaned using chlorhexidine as a cleansing solution. Using fluoroscopy guidance a 3 and half inch 22-gauge spinal needle was used to access the right hip joint without difficulty. After negative aspiration 3 cc of 1% lidocaine +3 cc of 0.25% Marcaine and 40 mg of Depo-Medrol was injected. Needle was withdrawn. Band-Aid applied. Patient tolerated procedure without difficulty. There are no complications. Plan and Disposition:: Patient was discharged without incident. Patient reports minimal to no pain in the right hip while ambulating 10 minutes post procedure.
[2022-07-16 10:36] VITALS: BP 136/68; PULSE 54; RESP 18; O2SAT 97
== END 2022-07-16 10:36 | disposition home or self-care (01) ==
PROVIDERS: PCP Family Medicine; Visit Provider Nurse Anesthetist, Certified Registered
DX: M16.11 Unilateral primary osteoarthritis, right hip (principal); M25.551 Pain in right hip; S72.001D Fracture of unspecified part of neck of right femur, subsequent encounter for closed fracture with routine healing
CPT/HCPCS: 20610; J1040

== ENCOUNTER → 2022-08-01 07:59 | Outpatient (POV) | payer MEDICARE, BC, SELFPAY ==
[2022-08-01 08:22] VITALS: BP 109/72; PULSE 60; RESP 18; O2SAT 97; BMI 33.0
--- NOTE | 2022-08-01 08:35 | EXP.PAIN.SOA ---
[facility] Pain Management SOAP Note Subjective:: Patient is a pleasant 82-year-old male who presents today for follow-up of right intra-articular hip injection on 07/16/2022. We are currently treating the patient for right hip osteoarthritis and right knee osteoarthritis, right hip pain, right knee pain. Today he states he has had at least 70% improvement following this injection however it only lasted 2 weeks. During that time he states he has had significant improvement and was able to increase his activity with decreased pain symptoms. He does feel like he is back at his baseline today rating his pain a 9 out of 10. Patient denies any new trauma or injury. He denies any change location or type of pain he experiences. He does describe his pain as a sharp, achy sensation that is continuous and worse with increasing pain. He does state this pain interferes with his ability to perform activities of daily living such as cooking and cleaning. Patient does continue to try [id number] medications such as Tylenol along with heat and topicals with minimal relief. Patient is very active and also uses exercise equipment on a daily basis and has had significant improvement on his left side however his right continues to be the bothersome area. Patient is interested in repeating his intra-articular hip injection. Patient did previously have a right knee intra-articular injection however he did not get any additional improvement with this injection. Patient is not currently on any scheduled medications. His Lalit is [id number]. Its been reviewed and appropriate. Review of Systems: General: No recent weight changes, no fever, no sleep disturbances Respiratory: No cough, no shortness of air, no recurring pulmonary infections Cardiovascular/peripheral vascular: No chest pain, no palpitations, no edema, no shortness of breath Gastrointestinal: No new onset incontinence, normal bowel movements reported Genitourinary: No new onset incontinence Musculoskeletal: Right hip pain, right knee pain Psychiatric: [Normal mood/affect] Neurological: [Denies weakness in extremities], [denies balance issues] Objective:: Physical Exam: General: Alert and oriented x3, no acute distress, pleasant and cooperative Lungs: Respirations even and unlabored, symmetrical chest expansion Eyes: PERRL Musculoskeletal: Flexion and extension of right hip somewhat guarded secondary to pain, [antalgic gait noted] Neurological: Speech clear, no gross sensory deficit Assessment:: Osteoarthritis of right hip and right knee, right hip pain, right knee pain Plan:: Patient had at least 70% improvement following his last intra-articular hip injection however he is back to his baseline today with significant pain and limited range of motion. I have discussed with the patient that he may benefit from repeat intra-articular hip injections. Risk and benefits were discussed with the patient and he would like to proceed forward with this plan of care. I have also discussed with the patient that in the future we may look at doing a right genicular nerve block for his knee pain. Patient will be scheduled for a right hip intra-articular injection. Patient has been instructed to contact the clinic with any concerns before the next appointment. Dr. Gallegos has reviewed this note and agrees with this plan of care. This note was dictated using voice recognition software and make contain errors or omissions. [facility] Disclaimer: The information contained in this section may have been updated after the patient was seen, as this information can be updated by other users. Medical History Asthma History of stroke Hypertension Surgical History History of appendectomy History of open heart surgery Family History Other No significant family histor
== END ==
PROVIDERS: PCP Family Medicine; Visit Provider Nurse Practitioner Family
DX: M16.11 Unilateral primary osteoarthritis, right hip (principal); M17.11 Unilateral primary osteoarthritis, right knee; M25.551 Pain in right hip; M25.561 Pain in right knee
CPT/HCPCS: 99212; G0463

== ENCOUNTER 2022-08-06 09:53 | Day surgery (SDC) | payer MEDICARE, BC, SELFPAY ==
[2022-08-06 10:14] VITALS: BP 129/84; PULSE 62; RESP 18; TEMP 36.9; O2SAT 96; BMI 33.7
[2022-08-06 10:33] VITALS: BP 137/83; PULSE 66; RESP 18; O2SAT 97
[2022-08-06 10:45] VITALS: BP 139/83; PULSE 66; RESP 18; O2SAT 96
--- NOTE | 2022-08-06 11:16 | EXP.PAIN.PRO ---
Procedure Date: 08/06/22 Time: 11:10 Anesthesiologist:: Bryon Brown CRNA Complications:: None Pre-procedure Diagnosis:: Degenerative osteoarthritis right hip. Status post ORIF right hip/femur fracture 2020. Post-procedure Diagnosis:: Same. Indications for Procedure:: Patient is a very pleasant 82-year-old male that comes our clinic today for intra-articular right hip injection. This will be his second injection into the right hip. His first injection provided 6 to 7 weeks of significant improvement terms of his overall right hip pain. Patient is status post right femur fracture as well as right hip fracture after a fall in 2020. Procedure Details:: Details of the procedure were explained to the patient. The patient was taken to procedure room placed in the supine position. The area over the right hip was cleaned using chlorhexidine as a cleansing solution. Using fluoroscopy guidance a 3 and half inch 22-gauge spinal needle was used to access the right hip joint without difficulty. After negative aspiration 3 cc of 1% lidocaine +3 cc of 0.25% Marcaine and 40 mg of Depo-Medrol was injected. Needle was withdrawn. Band-Aid applied. Patient tolerated procedure without difficulty. There are no complications. Plan and Disposition:: Patient was discharged without incident.
== END 2022-08-06 10:45 | disposition home or self-care (01) ==
PROVIDERS: PCP Family Medicine; Visit Provider Nurse Anesthetist, Certified Registered
DX: M16.11 Unilateral primary osteoarthritis, right hip (principal)
CPT/HCPCS: 20610; 77002; J1040

== ENCOUNTER → 2022-08-21 10:55 | Outpatient (POV) | payer MEDICARE, BC, SELFPAY ==
--- NOTE | 2022-08-21 11:15 | EXP.PAIN.SOA ---
[facility] Pain Management SOAP Note Subjective:: Patient is a pleasant 82-year-old male who presents today for follow-up of right intra-articular hip injection on 08/06/2022. We are currently treating the patient for right hip osteoarthritis, right knee osteoarthritis, right hip and right knee pain. Today he states that the second injection did not provide significant relief. He his first intra-articular injection did give upwards of 70% relief lasting 2 weeks. He rates his pain today a 9 out of 10. Patient denies any new trauma or injury. Patient denies any change location or type of pain he experiences. He states his pain is a constant daily achy sensation that is worse with increased activity. Patient does use a cane to help with ambulation. He states this does interfere with his ability to perform activities of daily living such as cooking and cleaning or even ambulation. His Lalit is [id number]. Its been reviewed and appropriate. Review of Systems: General: No recent weight changes, no fever, no sleep disturbances Respiratory: No cough, no shortness of air, no recurring pulmonary infections Cardiovascular/peripheral vascular: No chest pain, no palpitations, no edema, no shortness of breath Gastrointestinal: No new onset incontinence, normal bowel movements reported Genitourinary: No new onset incontinence Musculoskeletal: Right hip pain Psychiatric: [Normal mood/affect] Neurological: [Denies weakness in extremities], [denies balance issues] Objective:: Physical Exam: General: Alert and oriented x3, no acute distress, pleasant and cooperative Lungs: Respirations even and unlabored, symmetrical chest expansion Eyes: PERRL Musculoskeletal: Flexion and extension of right hip somewhat guarded secondary to pain, [antalgic gait noted] Neurological: Speech clear, no gross sensory deficit Assessment:: Osteoarthritis right hip, right knee and right hip, right knee pain Plan:: Patient continues to experience significant pain in his right hip with limited range of motion. I will send him for referral to Dr. Grider for possible right hip replacement. Patient will return to clinic in 1 month for reevaluation of symptoms and plan of care. Patient has been instructed to contact the clinic with any concerns before the next appointment. Dr. Gallegos has reviewed this note and agrees with this plan of care. This note was dictated using voice recognition software and make contain errors or omissions. [facility] Disclaimer: The information contained in this section may have been updated after the patient was seen, as this information can be updated by other users. Medical History Asthma History of stroke Hypertension Surgical History History of appendectomy History of open heart surgery Family History Other No significant family history Social History Smoking Status: Former smoker second hand exposure: No alcohol intake: current substance use type: denies use current occupational status: retired Travel in the last 8 weeks: None household members: none housing: house current occupational exposures/hazards: No caffeine: No
[2022-08-21 12:21] VITALS: BP 144/69; PULSE 61; RESP 18; O2SAT 98; BMI 33.0
== END ==
PROVIDERS: PCP Family Medicine; Visit Provider Nurse Practitioner Family
DX: M16.11 Unilateral primary osteoarthritis, right hip (principal); M17.11 Unilateral primary osteoarthritis, right knee; M25.561 Pain in right knee
CPT/HCPCS: 99212; G0463

== ENCOUNTER 2022-09-19 04:24 | Observation (INO) | payer MEDICARE, BC, SELFPAY ==
[2022-09-19] VITALS (24 sets, daily range): BP systolic 81–137; BP diastolic 42–98; PULSE 50–93; RESP 15–29; TEMP 36.6–37.3; O2SAT 92–99; BMI 32.8; BMI 33.5
--- NOTE | 2022-09-19 04:16 | ECG_ITS ---
APPROVED REPORT Exam: Resting ECG HR:91 bpm ECG Measurements Heart Rate 91 AXES QRSd 91 QRS 43 QT 339 T 43 QTc 388 Conclusion ATRIAL FIBRILLATION NONSPECIFIC T-WAVE ABNORMALITY ABNORMAL RHYTHM ECG UNCONFIRMED REPORT Electronically signed by : Nam Montero MD 09/19/2022 20:07:54
--- NOTE | 2022-09-19 04:26 | XR_ITS ---
PROCEDURE INFORMATION: Exam: XR Chest Exam date and time: 09/19/2022 4:40 AM Age: 82 years old Clinical indication: Shortness of breath; Additional info: SOB TECHNIQUE: Imaging protocol: Radiologic exam of the chest. Views: 1 view. COMPARISON: CR XR CHEST PORTABLE 03/07/2020 3:53 PM FINDINGS: Lungs: Chronic interstitial changes. Pleural spaces: Unremarkable. No pleural effusion. No pneumothorax. Heart/Mediastinum: Mild stable cardiomegaly. Bones/joints: Unremarkable. IMPRESSION: No acute process. Stable cardiomegaly and interstitial changes.
--- NOTE | 2022-09-19 04:27 | HMH.EDSOB ---
Discharge Plan Disposition Patient Disposition: Admitted Chief Complaint: Shortness of Breath/Dyspnea Prescriptions Prescriptions: No Action alendronate 70 mg tablet 70 mg PO WEEKLY famotidine 20 MG tablet 20 mg PO BID Label Comments: take 1 tablet by mouth twice a day lisinopril 10 MG tablet 10 mg PO DAILY Label Comments: take 1 tablet by mouth once daily warfarin 5 MG tablet 5 mg PO DAILY Label Comments: take 1 tablet by mouth once daily allopurinol 300 MG tablet 300 mg PO BID Label Comments: TAKE 1 TABLET TWICE A DAY pravastatin 20 MG tablet 20 mg PO DAILY Label Comments: take 1 tablet by mouth once daily atenolol 50 MG tablet 50 mg PO DAILY Label Comments: take 1 tablet by mouth once daily ergocalciferol (vitamin D2) 50,000 UNIT capsule 1 tab PO WEEKLY omeprazole 40 MG capsule,delayed release(DR/EC) 40 mg PO DAILY potassium chloride 10 MEQ capsule, extended release 10 meq PO DAILY acetaminophen 325 MG tablet 650 mg PO Q4HP PRN (Reason: As Needed For Fever Or Pain) 0RF Referrals Follow up/Referrals: Vasquez Snow [Primary Care Provider] - See instructions Clinical Impressions Clinical Impression: Acute dyspnea, Hypoxemia, Atrial fibrillation Discharge ED Provider: Kylah Rosas Resp/SOB HPI General Chief Complaint: Shortness of Breath/Dyspnea Stated Complaint: SOA Time Seen by Provider: 09/19/22 04:25 Mode of Arrival: EMS Source of Information: Patient Limitations: No Limitations History of Present Illness Patient is a 82-year-old male who is here secondary to short of breath. Patient stated that he was fine all day yesterday and even went out to [place] and took gunshot. Early this morning patient woke up with fevers and chills and shortness of breath. Patient denied any cough or congestion. He denies any sore throat or headache. He had fever and then he was chilling. No chest pain abdominal pain no nausea or diarrhea no rashes anywhere. EMS got there his sats were 92 on room air they put on 2 L he is doing 95-96. Apparently he told EMS that the oxygen helped. He has no COPD asthma. He is vaccinated for COVID, flu and pneumonia. 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 He has atrial fibrillation he is on Coumadin. He has hypertension hyperlipidemia, gout and acid reflux MD Complaint: shortness of breath Onset (ago): hour(s) Severity: moderate Consistency/Duration: intermittent Relieving factors: nothing Exacerbating factors: exertion Associated symptoms: fever Treatment prior to arrival: oxygen Related Data Home oxygen amount: none Home Medications Medication Instructions Recorded Confirmed allopurinol 300 mg tablet 300 mg PO BID gout 08/29/17 08/21/22 atenolol 50 mg tablet 50 mg PO DAILY blood pressure 08/29/17 08/21/22 famotidine 20 mg tablet 20 mg PO BID acid reflux 08/29/17 08/21/22 lisinopril 10 mg tablet 10 mg PO DAILY blood pressure 08/29/17 08/21/22 pravastatin 20 mg tablet 20 mg PO DAILY Cholesterol 08/29/17 08/21/22 warfarin 5 mg tablet 5 mg PO DAILY Blood thinner 08/29/17 08/21/22 ergocalciferol (vitamin D2) 1,250 1 tab PO WEEKLY Supplement 03/07/20 08/21/22 mcg (50,000 unit) capsule omeprazole 40 mg capsule,delayed 40 mg PO DAILY acid reflux 03/08/20 08/21/22 release potassium chloride 10 mEq 10 meq PO DAILY Supplement 03/10/20 08/21/22 capsule,extended release alendronate 70 mg tablet 70 mg PO WEEKLY BONE HEALTH 09/26/20 08/21/22 Previous Rx's Medication Instructions Recorded acetaminophen 325 mg tablet 650 mg PO Q4HP PRN As Needed For 03/13/20 Fever Or Pain Allergies Allergy/AdvReac Type Severity Reaction Status Date / Time No Known Allergies Allergy Verified 08/06/22 10:05 Well's Criteria PE Score Clinical signs/symptoms of DVT: No PE is #1 diagnosis or equally likely: No Heart rate is > 100: Yes Immobile at least 3 days
[2022-09-19 04:37] LABS: ABG Base Excess -1.5 mmol/L (-2.4-2.3); ABG HCO3 22.1 mmhg (22.0-26.0); ABG Oxygen Saturation 94 % (90-100); ABG PCO2 30.8 mmhg (35.0-45.0); ABG PH 7.47 mmol/L (7.35-7.45); ABG PO2 63.4 mmhg (80-100); ABG TCO2 23.1 mmhg (23-27)
[2022-09-19 04:38] LABS: Allen's Test Acceptable; Oxygen 21 %; Source Right Radial
[2022-09-19 04:47] LABS: Adenovirus,PCR Not Detected (NotDetected); Bordetella Pertussis Not Detected (NotDetected); Chlamydophila Pneumoniae, PCR Not Detected (NotDetected); Coronavirus 19, PCR Not Detected (NotDetected); Coronavirus 229E Not Detected (NotDetected); Coronavirus NL63 Not Detected (NotDetected); Coronavirus OC43 Not Detected (NotDetected); Coronovirus HKU1,PCR Not Detected (NotDetected); Human Metapneumovirus Not Detected (NotDetected); Influenza A, PCR Not Detected (NotDetected); Influenza AH1, 2009 Not Detected (NotDetected); Influenza AH1, PCR Not Detected (NotDetected); Influenza AH3,PCR Not Detected (NotDetected); Influenza B, PCR Not Detected (NotDetected); Mycoplasma Pneumoniae, PCR Not Detected (NotDetected); Parainfluenza 1, PCR Not Detected (NotDetected); Parainfluenza 2, PCR Not Detected (NotDetected); Parainfluenza 3, PCR Not Detected (NotDetected); Parainfluenza 4, PCR Not Detected (NotDetected); Respiratory Syncytial Virus Not Detected (NotDetected); Rhinovirus/Enterovirus Not Detected (NotDetected)
[2022-09-19 04:53] LABS: Chloride 103 mmol/L (98-107)
[2022-09-19 04:54] LABS: Potassium 4.3 mmoL/L (3.5-5.1); Sodium 136 mmol/L (136-145)
[2022-09-19 04:56] LABS: Alanine Aminotransferase 26 U/L (12-78); Alkaline Phosphatase 82 U/L (38-126); Aspartate Amino Transferase 42 U/L (17-59); Bilirubin,Total 0.6 mg/dl (0.2-1.3); Blood Urea Nitrogen 22 mg/dl (9-20); Creatinine Clearance Estimated 74 mL/min (50-200); Estimated Glomerular Filt Rate 58 ml/min (>60); GFR (African American) 70 ML/MIN (>60)
[2022-09-19 04:57] LABS: Activated Partial Thrombo Time 32.6 seconds (22.8-30.6); Albumin Level 3.4 g/dl (3.5-5.0); Albumin/Globulin Ratio 1.2 (1.1-1.8); Anion Gap 11.3 mEq/L (5-15); Calcium 8.4 mg/dl (8.4-10.2); Carbon Dioxide 26 mmol/L (22.0-30.0); Globulin 2.9 g/dL (1.3-3.2); Glucose 115 mg/dl (74-100); INR 1.62 (0.9-1.1); Total Protein,Serum 6.3 g/dl (6.3-8.2)
[2022-09-19 05:12] LABS: Basophils % 0.4 % (0.1-2.0); Eosinophils # 0.1 K/mm3 (0.0-0.4); Hematocrit 46.3 % (42.0-52.0); Hemoglobin 14.9 g/dL (14.1-18.0); Lymphocytes # 0.4 K/mm3 (0.7-4.5); Lymphocytes % 3.8 % (10-50); Mean Corpuscular HGB Conc 32.3 g/dL (31.8-35.4); Mean Corpuscular Hemoglobin 30.1 pg (27.0-31.2); Mean Corpuscular Volume 93.2 fl (80-94); Mean Platelet Volume 8.1 fl (7.4-10.4); Monocytes # 0.5 K/mm3 (0.1-1.0); Monocytes % 5.9 % (1.7-9.3); Neutrophils % 88.8 % (37.0-80.0); Platelet Count 177 K/mm3 (142-424); Red Blood Count 4.97 M/mm3 (4.60-6.20); Red Cell Distribution Width 15.7 % (11.5-17.5)
[2022-09-19 05:19] LABS: MANUAL DIFFERENTIAL MANUAL DIFFERENTIAL (MANUAL DIFF)
[2022-09-19 05:19] LABS: Troponin I < 0.01 ng/ml (0.00-0.034)
[2022-09-19 05:20] LABS: D-Dimer 1.21 ug/mL (0.0-0.5)
[2022-09-19 05:45] LABS: NT Pro Brain Natriuretic Pep. 1370 pg/mL (0-450)
--- NOTE | 2022-09-19 05:49 | CT_ITS ---
PROCEDURE INFORMATION: Exam: CTA Chest With Contrast Exam date and time: 09/19/2022 6:08 AM Age: 82 years old Clinical indication: Shortness of breath; Additional info: SOB TECHNIQUE: Imaging protocol: Computed tomographic angiography of the chest with contrast. Exam focused on the arteries. 3D rendering (Not supervised by radiologist): MIP and/or 3D reconstructed images were created by the technologist. Radiation optimization: All CT scans at this facility use at least one of these dose optimization techniques: automated exposure control; mA and/or kV adjustment per patient size (includes targeted exams where dose is matched to clinical indication); or iterative reconstruction. Contrast material: ISOVUE; Contrast volume: 100 ml; Contrast route: INTRAVENOUS (IV); REPORTING DATA: Count of CT and Cardiac NM exams in prior 12 months: This patient has received 0 known CTs and 0 known cardiac nuclear medicine studies in the 12 months prior to the current study. COMPARISON: CR XR CHEST PORTABLE 09/19/2022 4:40 AM FINDINGS: Tubes, catheters and devices: Atrial septal defect closure device. Pulmonary arteries: Normal. No pulmonary emboli. Aorta: Unremarkable. No aortic aneurysm. No aortic dissection. Lungs: No focal infiltrates. Pleural spaces: Peripheral areas of sub pleural fibrotic change. Heart: Unremarkable. No cardiomegaly. No pericardial effusion. Coronary arteries: Coronary atherosclerosis. Lymph nodes: Unremarkable. No enlarged lymph nodes. Diaphragm: Moderate-sized hiatal hernia. Bones/joints: Diffuse degenerative changes of the thoracic spine. Soft tissues: Unremarkable. IMPRESSION: 1. No evidence of pulmonary embolus or other acute process. 2. Coronary atherosclerosis. 3. Moderate-sized hiatal hernia.
[2022-09-19 06:07] LABS: Lymphocytes % 7 % (10-50); Neutrophils % 93 % (42-76); Platelet Estimate Normal; RBC Morphology Normal; Total Cells Counted 100
--- NOTE | 2022-09-19 06:45 | PC.NURSE ---
Called lab to check on respiratory panel for 2nd time, lab stated it's done . was s/w lab and let them know she is aware it should be done, but no results are showing in [place]. Lab reports they will check.
--- NOTE | 2022-09-19 06:52 | PC.NURSE ---
s/w hospitalist for admission
--- NOTE | 2022-09-19 06:58 | PC.NURSE ---
Dr Shukla, hospitalist, at bedside
[2022-09-19 07:03] LABS: Microscopic, Urine URINE MICROSCOPIC (MICROSCOPIC)
[2022-09-19 07:11] LABS: Appearance,Urine CLEAR (Clear); Bilirubin,Urine Negative (Negative); Blood, Urine Negative (Negative); Color,Urine YELLOW (Yellow); Glucose,Urine (UA) Negative (Negative); Ketones,Urine Negative (Negative); Leukocyte Esterase,Urine Negative (Negative); Nitrate,Urine Negative (Negative); Protein,Urine Negative (Negative); Specific Gravity, Urine <= 1.005 (1.005-1.030); Urobilinogen,Urine 0.2 EU/dl (0.2)
[2022-09-19 07:23] LABS: Squamous Epithelial Cell,Urine Occasional #/hpf (0-5)
--- NOTE | 2022-09-19 07:26 | EXP.HP ---
History of Present Illness *Admission Date: 09/19/22 *Reason for visit:: Shortness of breath *History of present illness: Really nice patient with past medical history of hypertension, hyperlipidemia, A-fib on Coumadin presents for shortness of breath. Patient states shortness of breath started around 1 AM and patient called son. Patient then brought to the emergency room for evaluation. Denies fevers, chills, productive cough. States he sleeps on 2 fluffy pillows. Admits to orthopnea and paroxysmal nocturnal dyspnea over the past 24 hours. BNP over thousand in emergency room. CTA chest no pulmonary embolus or pulmonary vascular congestion. Admits to right lower extremity swelling recently. States most recent INR level 2.4 within the past 48 hours. Also admits to vaccination for COVID and flu this year. Admits to headache 12/08, dull, top of head, unrelieved by Tylenol. Denies history of migraines. Admits to history of photophobia secondary to macular degeneration. Denies lung disease including COPD, black lung, asthma. Also denies history of heart failure. Does admit to history of chronic kidney disease. [facility] Disclaimer: The information contained in this section may have been updated after the patient was seen, as this information can be updated by other users. Past medical history Hyperlipidemia, hypertension, CKD,, macular degeneration past Surgical history: Carpal repair 2010, right hip surgery, right leg surgery Past social history: Lives alone, quit smoking 1995, occasional alcohol Past Family history: Mother from female cancer 1989 Father from brain cancer 1973 Medical History Asthma History of stroke Hypertension Surgical History History of appendectomy History of open heart surgery Family History Other No significant family history Social History Smoking Status: Former smoker second hand exposure: No alcohol intake: current substance use type: denies use current occupational status: retired Travel in the last 8 weeks: None household members: none housing: house current occupational exposures/hazards: No caffeine: No Review of Systems Review of Systems Review of systems:: pertinent systems reviewed and negative unless documented below Meds Home Medications and Allergies Home Medications Medication Instructions Recorded Confirmed Type allopurinol 300 mg tablet 300 mg PO BID gout 08/29/17 09/19/22 History atenolol 50 mg tablet 50 mg PO DAILY blood pressure 08/29/17 09/19/22 History famotidine 20 mg tablet 20 mg PO BID acid reflux 08/29/17 09/19/22 History lisinopril 10 mg tablet 10 mg PO DAILY blood pressure 08/29/17 09/19/22 History pravastatin 20 mg tablet 20 mg PO DAILY Cholesterol 08/29/17 09/19/22 History warfarin 5 mg tablet 5 mg PO DAILY Blood thinner 08/29/17 09/19/22 History ergocalciferol (vitamin D2) 1,250 1 tab PO WEEKLY Supplement 03/07/20 09/19/22 History mcg (50,000 unit) capsule omeprazole 40 mg capsule,delayed 40 mg PO DAILY acid reflux 03/08/20 09/19/22 History release potassium chloride 10 mEq 10 meq PO DAILY Supplement 03/10/20 09/19/22 History capsule,extended release acetaminophen 325 mg tablet 650 mg PO Q4HP PRN As Needed For 03/13/20 09/19/22 Rx Fever Or Pain alendronate 70 mg tablet 70 mg PO WEEKLY BONE HEALTH 09/26/20 09/19/22 History New Prescriptions to Start Prescriptions: Allergies Allergy/AdvReac Type Severity Reaction Status Date / Time No Known Allergies Allergy Verified 08/06/22 10:05 Exam Data for Last 24 hours Vital signs and Labs for Last 24 Hours: Temp Pulse Resp BP Pulse Ox 98.2 F 84 25 H 136/86 94 L 09/19/22 07:17 09/19/22 07:17 09/19/22 07:17 09/19/22 07:17 09/19/22 06:30
--- NOTE | 2022-09-19 07:46 | CA_ITS ---
FINAL REPORT TECHNIQUE: Multiple transverse and longitudinal images were performed of right the femoral-popliteal deep venous system with augmentation and compression maneuvers. CLINICAL HISTORY: r/o DVT in pt with RLE swelling. no known trauma. COMPARISON: None FINDINGS: Right lower extremity duplex ultrasound demonstrates normal flow in the deep venous system. There is no abnormal echogenicity to suggest thrombus. There is normal compression and augmentation. IMPRESSION: No evidence of right DVT. Reviewed, Interpreted and Dictated by Miky Fisher MD Transcribed by Dalia Youssef Authenticated and [facility]
[2022-09-19 08:11] LABS: Troponin I 0.02 ng/ml (0.00-0.034)
--- NOTE | 2022-09-19 08:41 | HMH.PHAINT1 ---
Pharmacy Intervention Comments: Patient's home medications verified with external pharmacy and patient. -Chris Mejia, Pharm Student
--- NOTE | 2022-09-19 08:44 | EXP.CARD.CON ---
History of Present Illness History of Present Illness Consult date: 09/19/22 Requesting physician: Dany Lyons Consult reason: shortness of breath Chief complaint: SOA Additional Medical History:: 1. Hypertension A. Echocardiogram, 03/08/2020, moderate biatrial enlargement, normal LV size, mild concentric LVH, EF 55% with no regional WMA. Moderately enlarged right ventricle with normal contractility. Mild MR/TR 2. Remote tobacco use, 2 packs/day for 35 years, discontinued about 1995 3. Status post ASD repair, Dr. Huff, [facility], 2010 A. History of CVA x2 prior to surgery, no residual 4. Hyperlipidemia 5. History of atrial fibrillation A. Chronic Coumadin therapy 6. Closed right hip fracture 03/08/2020 A. Cephalo-medullary nailing 7. Coronary artery calcification noted on CTA of the chest, 09/19/2022 History of present illness: Really nice patient with past medical history of hypertension, hyperlipidemia, A-fib on Coumadin presents for shortness of breath.? Patient states shortness of breath started around 1 AM and patient called son.? Patient then brought to the emergency room for evaluation.? Denies fevers, chills, productive cough.? States he sleeps on 2 fluffy pillows.? Admits to orthopnea and paroxysmal nocturnal dyspnea over the past 24 hours.? BNP over thousand in emergency room.? CTA chest no pulmonary embolus or pulmonary vascular congestion.? Admits to right lower extremity swelling recently.? States most recent INR level 2.4 within the past 48 hours.? Also admits to vaccination for COVID and flu this year.? Admits to headache 12/08, dull, top of head, unrelieved by Tylenol.? Denies history of migraines.? Admits to history of photophobia secondary to macular degeneration.? Denies lung disease including COPD, black lung, asthma.? Also denies history of heart failure.? Does admit to history of chronic kidney disease. The above per Dr. Lyons Patient confirms events of shortness of breath as noted above. Patient is not very active since his hip surgery 2 years ago and does admit to shortness of breath with exertion but relates that to his prior smoking history. He denies any chest pain, pressure or tightness. He denies any prior coronary artery disease. Admitted for suspected congestive heart failure with BNP of 1370. Chest x-ray unremarkable with CT of the chest negative for pulmonary embolus. However he does have coronary artery calcifications. Initial troponin less than 0.01 with 6-second troponin being 0.02 Admission EKG shows A-fib with heart rate of [address]pm [address] no acute ST segment changes. [facility] Disclaimer: The information contained in this section may have been updated after the patient was seen, as this information can be updated by other users. Medical History (Updated 09/19/22 @ 08:55 by JESSE Castillo) Asthma Gout History of stroke Hypertension Hypokalemia PNA (pneumonia) Family History (Updated 09/19/22 @ 08:29 by Pooja Mccauley, SIRENA) No significant family history Cancer Hypertension Social History (Updated 09/19/22 @ 08:30 by Pooja Mccauley, RN) Smoking Status: Former smoker second hand exposure: No alcohol intake: current substance use type: denies use current occupational status: retired Travel in the last 8 weeks: None household members: none housing: house current occupational exposures/hazards: No caffeine: No Review of Systems Review of Systems Review of systems:: pertinent systems reviewed and negative unless documented below *Cardiovascular Cardiovascular: Denies chest pain, Reports dyspnea and Reports dyspnea on exertion *Respiratory Respiratory: Denies cough, Reports dyspnea and Reports dyspnea on exertion Exam Data for Last 24 hours Vital signs and Labs for Last 24 Hours: Temp Pulse Resp BP Pulse Ox 97.9 F 80 18 100/67 L 94 L 09/19/22 08:00 09/19/22 08:00 09/19/22 08:00 09/19/22 08:00 09/19/22 08:00 Laboratory Results - last 24
[2022-09-19 08:47] LABS: Procalcitonin 1.57 ng/mL (0.0-2.0)
--- NOTE | 2022-09-19 08:52 | IR_ITS ---
APPROVED REPORT Patient Location: Inpatient PROCEDURES Left heart catheterization Left ventriculogram Selective coronary angiogram INDICATION New onset congestive heart failure, Coronary artery calcification Informed consent was obtained prior to the procedure. COMPLICATIONS NONE Estimated Blood Loss: LESS THAN 10 ML TECHNIQUE One percent lidocaine used to anesthetize the right anterior aspect of the wrist. The right radial artery was accessed via the Seldinger technique. A 6 Jamaican sheath was placed in the right radial artery. 150 mg magnesium sulfate, 800 mcg of nitroglycerin, 1mg Lidocaine and 5000 U Heparin were given through the arterial sheath. The papa catheter was also used to perform left heart catheterization, left ventriculogram and selective coronary angiogram. At the end of the procedure the sheath was removed good hemostasis was achieved using Traclet band, patient was transferred to the postop holding area in stable condition. ANGIOGRAPHIC RESULTS The left main artery Normal The left anterior descending artery Has proximal and mid vessel diffuse 30% stenoses. Extravascular calcification is identified. 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 Treatment of underlying endothelial dysfunction with maximizing nitrates and possibly adding Ranexa 2. Low-dose diuretics 3. Entresto 4. LDL less than 55 to be achieved with high intensity statin 5. Aggressive medical management Electronically signed by : John Zhang MD 09/19/2022 13:53:26
[2022-09-19 09:07] LABS: Lactic Acid 1.7 mmol/L (0.7-2.1)
[2022-09-19 11:09] LABS: Troponin I 0.02 ng/ml (0.00-0.034)
--- NOTE | 2022-09-19 13:12 | PC.NURSE ---
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
[2022-09-19 13:33] LABS: Troponin I < 0.01 ng/ml (0.00-0.034)
--- NOTE | 2022-09-19 14:59 | PC.NURSE ---
Home meds in drawer.
[2022-09-19 19:29] LABS: Troponin I 0.01 ng/ml (0.00-0.034)
[2022-09-20] VITALS (7 sets, daily range): BP systolic 96–113; BP diastolic 47–73; PULSE 61–84; RESP 18; TEMP 36.2–36.8; O2SAT 93–97; BMI 33.0
[2022-09-20 05:58] LABS: Basophils % 0.6 % (0.1-2.0); Eosinophils # 0.2 K/mm3 (0.0-0.4); Eosinophils % 3.1 % (0.1-12.0); Hematocrit 46.1 % (42.0-52.0); Lymphocytes # 1.3 K/mm3 (0.7-4.5); Lymphocytes % 19.9 % (10-50); Mean Corpuscular HGB Conc 32.5 g/dL (31.8-35.4); Mean Corpuscular Hemoglobin 29.9 pg (27.0-31.2); Mean Corpuscular Volume 91.9 fl (80-94); Mean Platelet Volume 8.7 fl (7.4-10.4); Monocytes # 0.7 K/mm3 (0.1-1.0); Monocytes % 11.3 % (1.7-9.3); Neutrophils # 4.3 K/mm3 (1.8-7.8); Neutrophils % 65.2 % (37.0-80.0); Platelet Count 149 K/mm3 (142-424); Red Blood Count 5.01 M/mm3 (4.60-6.20); Red Cell Distribution Width 15.6 % (11.5-17.5); White Blood Count 6.5 K/mm3 (4.8-10.8)
[2022-09-20 06:06] LABS: Chloride 103 mmol/L (98-107); Potassium 4.5 mmoL/L (3.5-5.1); Sodium 136 mmol/L (136-145)
[2022-09-20 06:08] LABS: Blood Urea Nitrogen 23 mg/dl (9-20); Creatinine Clearance Estimated 64 mL/min (50-200); Estimated Glomerular Filt Rate 49 ml/min (>60); GFR (African American) 59 ML/MIN (>60)
[2022-09-20 06:09] LABS: Anion Gap 9.5 mEq/L (5-15); Calcium 8.1 mg/dl (8.4-10.2); Carbon Dioxide 28 mmol/L (22.0-30.0); Chol/HDL Ratio 4.6 (1-3.5); Cholesterol 153 mg/dl (140-200); Glucose 95 mg/dl (74-100); HDL Cholesterol 33 mg/dl (40-60); INR 1.37 (0.9-1.1); Magnesium 2.1 mg/dl (1.6-2.3); Prothrombin Time 14.5 seconds (10.1-12.5); Triglycerides 140 mg/dl (30-150); VLDL Cholesterol 28 mg/dL (0-40)
[2022-09-20 06:20] LABS: Direct LDL Cholesterol 80.44 mg/dL (100-129)
--- NOTE | 2022-09-20 08:40 | PC.NURSE ---
COURTESY TECH NOTE; ROUNDED ON PT 0820, ASSISTED PT TO BATHROOM, STANDBY ASSIST. PT AMBULATED LENGTH OF ROOM THREE TIMES, BOTH ACTIVITIES TOLERATED WELL. PT DENIED NEED FOR DRINK OR ASSISTANCE REPOSITIONING IN BED. CALL LIGHT WITHIN REACH, NO FURTHER REQUESTS AT THIS TIME. Shannan PATEL, KATHY
--- NOTE | 2022-09-20 08:59 | EXP.CARD.PN ---
Subjective Subjective Date: 09/20/22 Time: 08:59 Principal diagnosis: chest pain Interval history: 82-year-old white male in bed in no acute distress. States he feels great and is ready to go home. Exam Data for Last 24 hours Vital signs and Labs for Last 24 Hours: Temp Pulse Resp BP Pulse Ox 98.3 F 84 18 113/73 93 L 09/20/22 07:34 09/20/22 07:34 09/20/22 07:34 09/20/22 07:34 09/20/22 07:34 Laboratory Results - last 24 hr 09/19/22 04:24: Lactate 1.7 09/19/22 10:32: Troponin I 0.02 09/19/22 13:01: Troponin I < 0.01 09/19/22 19:00: Troponin I 0.01 09/20/22 05:27: WBC 6.5 D, RBC 5.01, Hgb 15.0, Hct 46.1, MCV 91.9, MCH 29.9, MCHC 32.5, RDW 15.6, Plt Count 149, MPV 8.7, Neut % (Auto) 65.2, Lymph % (Auto) 19.9, [place] % (Auto) 11.3 H, Eos % (Auto) 3.1, Baso % (Auto) 0.6, Neut # (Auto) 4.3, Lymph # (Auto) 1.3, [place] # (Auto) 0.7, Eos # (Auto) 0.2, Baso # (Auto) 0.0 09/20/22 05:27: Sodium 136, Potassium 4.5, Chloride 103, Carbon Dioxide 28, Anion Gap 9.5, BUN 23 H, Creatinine 1.40 H, Estimated Creat Clear 64, Estimated GFR 49 L, Est GFR ( Amer) 59, Glucose 95, Calcium 8.1 L, Magnesium 2.1, Triglycerides 140, Cholesterol 153, LDL Cholesterol Direct 80.44 L, VLDL Cholesterol 28, HDL Cholesterol 33 L, Cholesterol/HDL Ratio 4.6 H 09/20/22 05:27: PT 14.5 H, INR 1.37 H I & O for Last 24 hours: Intake & Output 09/17/22 09/18/22 09/19/22 09/20/22 11:59 11:59 11:59 11:59 Intake Total 840 / 840 Output Total 1600 / 1600 1800 / 1800 Balance -1600 / -1600 -960 / -960 Weight 239 lb 3 oz 236 lb 5 oz Constitutional Constitutional: no acute distress *Routine Respiratory Exam Respiratory: Present CTA bilaterally *Routine Cardiovascular Exam Cardiovascular: Present RRR; Absent murmur, gallop or rubs *Routine Extremities Exam Extremities: Absent cyanosis, clubbing or edema Progress Note: A&P Assessment and plan (1) Acute dyspnea: Status: Acute (2) Atrial fibrillation: Status: Chronic (3) Hypertension: Status: Chronic (4) Hyperlipidemia: Status: Chronic (5) History of CVA (cerebrovascular accident): Status: Chronic (6) Coronary artery calcification seen on CAT scan: Status: Acute (7) Ex-smoker for more than 1 year: Status: Acute Assessment and Plan Assessment and Plan for All Diagnoses:: 1.? Acute onset of dyspnea with concern for coronary artery disease/unstable angina in a patient with multiple cardiac risk factors (hypertension, hyperlipidemia, coronary calcification seen on CT and ex-smoker) LHC showed mild coronary artery disease with diffuse vascular ectasia with endothelial dysfunction and GILBERT II flow down the coronary arteries. Echo showed ejection fraction felt to be greater than 50% but not well visualized. Unable to assess diastolic function. No significant valve disease noted Continue atenolol Will add isosorbide and Ranexa for vascular ectasia/endothelial dysfunction 2.? Atrial fibrillation, chronic Resume warfarin 3.? Elevated BNP Continue diuretic therapy 4.? Hypertension ?continue atenolol and lisinopril 5.? Hyperlipidemia Continue statin therapy Clinically stable from cardiac standpoint for discharge home. Follow-up in our office in 1 to 2 weeks. Home medication recommendations Atenolol 25 mg daily Lisinopril 5 mg daily Furosemide 40 mg daily Potassium 10 mEq daily Pravastatin 40 mg Isosorbide mononitrate 30 mg daily Ranexa 500 mg twice daily Resume Coumadin at previous dosing
--- NOTE | 2022-09-20 14:11 | EXP.DC.SUM ---
General Admission date:: 09/19/22 Discharge date: 09/20/22 HPI HPI HPI: Really nice patient with past medical history of hypertension, hyperlipidemia, A-fib on Coumadin presents for shortness of breath. Patient states shortness of breath started around 1 AM and patient called son. Patient then brought to the emergency room for evaluation. Denies fevers, chills, productive cough. States he sleeps on 2 fluffy pillows. Admits to orthopnea and paroxysmal nocturnal dyspnea over the past 24 hours. BNP over thousand in emergency room. CTA chest no pulmonary embolus or pulmonary vascular congestion. Admits to right lower extremity swelling recently. States most recent INR level 2.4 within the past 48 hours. Also admits to vaccination for COVID and flu this year. Admits to headache 12/08, dull, top of head, unrelieved by Tylenol. Denies history of migraines. Admits to history of photophobia secondary to macular degeneration. Denies lung disease including COPD, black lung, asthma. Also denies history of heart failure. Does admit to history of chronic kidney disease. Hospital Course Hospital Course Hospital Course: Patient presented to hospital complaining of shortness of breath, and evaluated for new onset CHF. Patient underwent cardiac catheterization 09/19/2022 which showed nonobstructive CAD. Telemetry showed no new abnormalities during hospitalization. Patient felt better after receiving IV Lasix after hospital admission. Per Cardio advice pt sent home on lasix/renexa new medications as well as previous home CAD medications. Exam Data for Last 24 hours Vital signs and Labs for Last 24 Hours: Temp Pulse Resp BP Pulse Ox 98.0 F 80 18 98/64 L 96 09/20/22 11:56 09/20/22 12:00 09/20/22 11:56 09/20/22 11:56 09/20/22 11:56 Laboratory Results - last 24 hr 09/19/22 19:00: Troponin I 0.01 09/20/22 05:27: WBC 6.5 D, RBC 5.01, Hgb 15.0, Hct 46.1, MCV 91.9, MCH 29.9, MCHC 32.5, RDW 15.6, Plt Count 149, MPV 8.7, Neut % (Auto) 65.2, Lymph % (Auto) 19.9, [place] % (Auto) 11.3 H, Eos % (Auto) 3.1, Baso % (Auto) 0.6, Neut # (Auto) 4.3, Lymph # (Auto) 1.3, [place] # (Auto) 0.7, Eos # (Auto) 0.2, Baso # (Auto) 0.0 09/20/22 05:27: Sodium 136, Potassium 4.5, Chloride 103, Carbon Dioxide 28, Anion Gap 9.5, BUN 23 H, Creatinine 1.40 H, Estimated Creat Clear 64, Estimated GFR 49 L, Est GFR ( Amer) 59, Glucose 95, Calcium 8.1 L, Magnesium 2.1, Triglycerides 140, Cholesterol 153, LDL Cholesterol Direct 80.44 L, VLDL Cholesterol 28, HDL Cholesterol 33 L, Cholesterol/HDL Ratio 4.6 H 09/20/22 05:27: PT 14.5 H, INR 1.37 H I & O for Last 24 hours: Intake & Output 09/17/22 09/18/22 09/19/22 09/20/22 23:59 23:59 23:59 23:59 Intake Total 360 / 360 480 / 480 Output Total 3100 / 3400 300 / 300 Balance -2740 / -3040 180 / 180 Weight 108.494 kg 107.19 kg *Routine HEENT Exam Head: Present normocephalic Eye: Present EOMI and PERRL ENT: Present mucous membranes moist *Routine Neck Exam Neck: Present supple and full ROM *Routine Respiratory Exam Respiratory: Present diminished air movement; Absent accessory muscle use *Routine Cardiovascular Exam Cardiovascular: Present RRR, Normal S1 and Normal S2 *Routine Abdominal Exam Abdominal: Present soft and normoactive bowel sounds *Routine Rectal Exam Comments: deferred *Routine Exam Comments: deferred *Routine Extremities Exam Extremities: Present normal capillary refill *Routine Skin Exam Skin: Present intact, warm and normal turgor *Routine Neurological Exam Neurological: Present alert, oriented X3 and normal reflexes Results Data Completed and Pending Labs on day of discharge: Labs from last 24 hours 09/20/22 09/20/22 09/20/22 05:27 05:27 05:27 WBC 6.5 D RBC 5.01 Hgb 15.0 Hct 46.1 MCV 91.9 MCH 29.9 MCHC 32.5 RDW 15.6 Plt Count 149 MPV 8.7 Neut % (Auto) 65.2 Lymph % (Auto) 19.9 [place] % (Auto) 11.3 H Eos % (Auto)
--- NOTE | 2022-09-23 11:09 | SW/DCPLANNER ---
Follow up phone call was made with this patient today: patient has no needs at home and is doing well. Patient is aware of follow up appointments.
== END 2022-09-20 14:35 | disposition home or self-care (01) ==
LOC: ER 07:00 → 2ND 07:08
PROVIDERS: Internal Medicine; Admitting Provider Internal Medicine; Emergency Provider Emergency Medicine; PCP Family Medicine; Visit Provider Internal Medicine
DX: I50.9 Heart failure, unspecified (principal); I25.10 Atherosclerotic heart disease of native coronary artery without angina pectoris; E78.5 Hyperlipidemia, unspecified; I12.9 Hypertensive chronic kidney disease with stage 1 through stage 4 chronic kidney disease, or unspecified chronic kidney disease; I48.91 Unspecified atrial fibrillation; Z87.891 Personal history of nicotine dependence; N18.9 Chronic kidney disease, unspecified; Z79.01 Long term (current) use of anticoagulants; Z79.899 Other long term (current) drug therapy; R06.02 Shortness of breath
CPT/HCPCS: G0378; 36415; 71045; 71275; 80048; 80053; 80061; 81001; 82803; 83605; 83735; 83880; 84145; 84484; 85007; 85025; 85378; 85610; 85730; 87040; 87581; 87632; 87635; 87798; 93005; 93306; 93458; 93970; 94640; 99152; 99285; C1769; C9803; J1644; Q9967; U0003; U0005

== ENCOUNTER 2022-10-10 14:41 | Emergency (ER) | payer MEDICARE, BC, SELFPAY ==
[2022-10-10 14:41] VITALS: BP 110/73; PULSE 71; RESP 18; TEMP 36.8; O2SAT 94; BMI 31.7
[2022-10-10 15:00] VITALS: BP 100/74; PULSE 69; O2SAT 97
[2022-10-10 15:30] VITALS: BP 92/70; PULSE 68; O2SAT 96
--- NOTE | 2022-10-10 15:48 | PC.NURSE ---
Dr. Mosley at BS for pt eval
[2022-10-10 16:00] VITALS: BP 98/67; PULSE 71; O2SAT 98
--- NOTE | 2022-10-10 18:45 | HMH.EDGENADL ---
Discharge Plan Disposition Patient Disposition: Home, Self-Care Condition: Good Chief Complaint: Dizziness Prescriptions Prescriptions: No Action ranolazine 1,000 mg tablet extended release 12 hr 1,000 mg PO BID Qty: 60 5RF famotidine 20 MG tablet 20 mg PO BID Patient Comments: take 1 tablet by mouth twice a day warfarin 5 MG tablet 2.5 mg PO [facility] Patient Comments: piyush, orestes, tony, sat Rx Instructions: DOSE Mo We Fr - 5mg DOSE Rosas - 2.5mg allopurinol 300 MG tablet 300 mg PO BID Patient Comments: TAKE 1 TABLET TWICE A DAY ergocalciferol (vitamin D2) 50,000 UNIT capsule 50,000 unit PO WEEKLY omeprazole 40 MG capsule,delayed release(DR/EC) 40 mg PO DAILY potassium chloride 10 MEQ capsule, extended release 10 meq PO DAILY acetaminophen 325 MG tablet 650 mg PO Q4HP PRN (Reason: As Needed For Fever Or Pain) 0RF warfarin 5 mg tablet 5 mg PO MOWEFR Patient Comments: TAKE ONE (1) TABLET BY MOUTH ONCE DAILY Rx Instructions: DOSE Mo We Fr - 5mg DOSE Rosas - 2.5mg furosemide 40 mg Tablet 40 mg PO DAILY Qty: 90 0RF lisinopril 10 MG tablet 5 mg PO DAILY Qty: 90 0RF Patient Comments: take 1 tablet by mouth once daily pravastatin 20 MG tablet 40 mg PO DAILY Qty: 90 0RF Patient Comments: take 1 tablet by mouth once daily atenolol 50 MG tablet 25 mg PO DAILY Qty: 90 0RF Patient Comments: take 1 tablet by mouth once daily Referrals Follow up/Referrals: Vasquez Snow [Primary Care Provider] - See instructions Activity Restrictions/Add. Instructions Additional Instructions/Restrictions: Medication as directed. Follow-up with Dr. Zhang in the morning. Return to the ER for chest pain, shortness of breath Clinical Impressions Clinical Impression: Adverse reaction to drug Qualifiers: Encounter type: initial encounter Qualified Code(s): T50.905A - Adverse effect of unspecified drugs, medicaments and biological substances, initial encounter Discharge ED Provider: Son Mosley General Adult [facility] General Chief complaint: Dizziness Stated complaint: Low BP Time Seen by Provider: 10/10/22 15:52 Mode of Arrival: Ambulatory Source of Information: Patient Limitations: No Limitations Description of Symptoms (Recalled from ER Triage Doc. by RN): 82 M presents from home c/o low blood pressure, dizziness, and headache. Patient reports taking his BP at home earlier today and had readings 70's and 90's systolic. Patient GCS 15 on arrival, ambulatory without assist. History of Present Illness HPI narrative: 82yo M presents to the ER secondary to low blood pressure reading at home, dizziness, headache. Patient reports his blood pressure at home was in the 70s. Reports he was recently started on [address] Zhang. His symptoms began after initiating those medications several days ago. Denies any chest pain or shortness of breath. Reports normal intake. No recent fever. Related Data Home Medications Medication Instructions Recorded Confirmed allopurinol 300 mg tablet 300 mg PO BID gout 08/29/17 09/27/22 famotidine 20 mg tablet 20 mg PO BID acid reflux 08/29/17 09/27/22 warfarin 5 mg tablet 2.5 mg PO SUTUTHSA Blood thinner 08/29/17 09/27/22 ergocalciferol (vitamin D2) 1,250 50,000 unit PO WEEKLY Supplement 03/07/20 09/27/22 mcg (50,000 unit) capsule omeprazole 40 mg capsule,delayed 40 mg PO DAILY acid reflux 03/08/20 09/27/22 release potassium chloride 10 mEq 10 meq PO DAILY Supplement 03/10/20 09/27/22 capsule,extended release warfarin 5 mg tablet 5 mg PO MOWEFR Blood thinner 09/19/22 09/27/22 Previous Rx's Medication Instructions Recorded acetaminophen 325 mg tablet 650 mg PO Q4HP PRN As Needed For 03/13/20 Fever Or Pain atenolol 50 mg tablet 25 mg PO DAILY blood pressure #90 09/20/22 tabs furosemide 40 mg tablet 40 mg PO DAILY #90 tab
[2022-10-10 19:04] VITALS: BP 109/79; PULSE 59; RESP 19; TEMP 36.6; O2SAT 97
== END 2022-10-10 19:06 | disposition home or self-care (01) ==
PROVIDERS: Emergency Provider Family Medicine; PCP Family Medicine
DX: R42 Dizziness and giddiness (principal); I95.9 Hypotension, unspecified; R51.9 Headache, unspecified; T46.5X5A Adverse effect of other antihypertensive drugs, initial encounter; J45.909 Unspecified asthma, uncomplicated; M10.9 Gout, unspecified; Z86.73 Personal history of transient ischemic attack (TIA), and cerebral infarction without residual deficits
CPT/HCPCS: 99284; 99285

== ENCOUNTER 2022-10-28 13:54 | Emergency (ER) | payer MEDICARE, BC, SELFPAY ==
[2022-10-28] VITALS (11 sets, daily range): BP systolic 99–131; BP diastolic 70–90; PULSE 53–75; RESP 16–20; TEMP 36.6–36.7; O2SAT 95–98; BMI 31.8
[2022-10-28 14:06] LABS: POC Glucose,Bedside 99 (70-110)
--- NOTE | 2022-10-28 14:17 | CT_ITS ---
FINAL REPORT CLINICAL HISTORY: dizziness COMPARISON: 03/07/2020 FINDINGS: Axial images of the head were obtained without contrast. Coronal reformatted images were also obtained. This study was performed with techniques to keep radiation doses as low as reasonably achievable (ALARA). Individualized dose reduction techniques using automated exposure control or adjustment of mA and/or kV according to the patient''s size were employed. There is stable left cerebellar and left occipital encephalomalacia. There is a small, chronic left periventricular lacunar infarct. There is generalized age-appropriate atrophy. Periventricular low-attenuation areas are seen consistent with mild chronic ischemic changes. There is no evidence of intracranial hemorrhage or mass. There is no evidence of acute infarct. There is no evidence of shift of the midline structures. There is mucosal thickening of multiple ethmoid air cells. No skull abnormality is seen on the bone window images. IMPRESSION: Atrophy and mild periventricular chronic ischemic changes. No acute intracranial abnormality identified. Reviewed, Interpreted and Dictated by Yaw Julio III, MD Transcribed by Tara Dent Authenticated and [facility]
--- NOTE | 2022-10-28 14:18 | XR_ITS ---
FINAL REPORT TECHNIQUE: Single view chest CLINICAL HISTORY: dizziness COMPARISON: 09/19/2022 FINDINGS: A single view of the chest was obtained. The heart is enlarged. There are right midlung opacities worrisome for pneumonia. There is no pneumothorax. Osseous structures are unremarkable. IMPRESSION: Right midlung opacities worrisome for pneumonia. Reviewed, Interpreted and Dictated by Yaw Julio III, MD Transcribed by Tara Dent Authenticated and . [facility]
--- NOTE | 2022-10-28 14:28 | ECG_ITS ---
APPROVED REPORT Exam: Resting ECG HR:59 bpm ECG Measurements Heart Rate 59 AXES QRSd 100 QRS 57 QT 437 T 10 QTc 437 Conclusion ATRIAL FIBRILLATION WITH SLOW VENTRICULAR RESPONSE ABNORMAL RHYTHM ECG UNCONFIRMED REPORT Electronically signed by : Nam Montero MD 10/28/2022 19:48:17
--- NOTE | 2022-10-28 14:43 | HMH.EDGENADL ---
Discharge Plan Disposition Patient Disposition: Home, Self-Care Prescriptions Prescriptions: No Action ranolazine 1,000 mg tablet extended release 12 hr 1,000 mg PO BID Qty: 60 5RF famotidine 20 MG tablet 20 mg PO BID Patient Comments: take 1 tablet by mouth twice a day war[facility]in 5 MG [facility] Patient Comments: piyush, orestes, thsam, sat Rx Instructions: DOSE Mo We Fr - 5mg DOSE Rosas - 2.5mg allopurinol 300 MG tablet 300 mg PO BID Patient Comments: TAKE 1 TABLET TWICE A DAY ergocalciferol (vitamin D2) 50,000 UNIT capsule 50,000 unit PO WEEKLY omeprazole 40 MG capsule,delayed release(DR/EC) 40 mg PO DAILY potassium chloride 10 MEQ capsule, extended release 10 meq PO DAILY acetaminophen 325 MG tablet 650 mg PO Q4HP PRN (Reason: As Needed For Fever Or Pain) 0RF warfarin 5 mg tablet 5 mg PO MOWEFR Patient Comments: TAKE ONE (1) TABLET BY MOUTH ONCE DAILY Rx Instructions: DOSE Mo We Fr - 5mg DOSE Rosas - 2.5mg furosemide 40 mg Tablet 40 mg PO DAILY Qty: 90 0RF lisinopril 10 MG tablet 5 mg PO DAILY Qty: 90 0RF Patient Comments: take 1 tablet by mouth once daily pravastatin 20 MG tablet 40 mg PO DAILY Qty: 90 0RF Patient Comments: take 1 tablet by mouth once daily atenolol 50 MG tablet 25 mg PO DAILY Qty: 90 0RF Patient Comments: take 1 tablet by mouth once daily Referrals Follow up/Referrals: Vasquez Snow [Primary Care Provider] - See instructions Activity Restrictions/Add. Instructions Additional Instructions/Restrictions: No emergent medical condition was noted today with your work-up. No evidence of any cardiopulmonary or cardiovascular emergency. Given the fact that you improved significantly with IV fluids you may have been dehydrated which would have caused her symptoms. Your chest x-ray there was concern for possible pneumonia but you had no fever cough or any symptoms consistent so I chose not to give antibiotics at this point. Given the fact that she missed her appointment with Dr. Zhang and you were here for some concern for cardiovascular problems please follow-up as closely as possible with him and return to the emergency department any worsening symptoms. Clinical Impressions Clinical Impression: Dizziness, Headache, Dehydration Discharge ED Provider: Sadaf,Ross A General Adult HPI <Glenn Talavera MD - Last Filed: 10/29/22 07:12> General Chief complaint: Headache Stated complaint: h/a, dry mouth, shakey Time Seen by Provider: 10/28/22 13:55 Mode of Arrival: Ambulatory Source of Information: Patient Limitations: No Limitations Description of Symptoms (Recalled from ER Triage Doc. by RN): pt to ed c/o dry mouth, shakes and a headache. pt states at approx 1100 while getting ready his symptoms started. pt denies a diabetic hx. History of Present Illness HPI narrative: This is an 82-year-old male with history of CAD, TIA x2, A-fib on Coumadin, presenting with multiple complaints. Patient states that he was getting out of the shower about an hour prior to arrival when he felt lightheaded, dizzy and shaky. No loss of consciousness, return to baseline, but given patient's symptoms, in addition to dry mouth, he was concern for stroke. Called his son to take him to the ER for further evaluation. Largely asymptomatic on arrival. Patient states he is not having unilateral deficits, vision changes, chest pain, shortness of breath, nausea or vomiting. States that he has been largely trying to stay out of the heat, and has been trying to stay up with hydration. States drinking 2 bottles of water and a bottle of Gatorade in the last 24 hours, likely leading to dehydration. Related Data Home Medications Medication Instructions Recorded Confirmed allopurinol 300 mg tablet 300 mg PO BID gout 08/29/17 09/27/22 famotidine 20 mg tablet 20 mg PO B
[2022-10-28 14:51] LABS: Chloride 102 mmol/L (98-107); Potassium 4.7 mmoL/L (3.5-5.1); Sodium 138 mmol/L (136-145)
[2022-10-28 14:54] LABS: Alanine Aminotransferase 18 U/L (12-78); Albumin Level 3.6 g/dl (3.5-5.0); Albumin/Globulin Ratio 1.1 (1.1-1.8); Alkaline Phosphatase 82 U/L (38-126); Anion Gap 8.7 mEq/L (5-15); Aspartate Amino Transferase 36 U/L (17-59); Bilirubin,Total 0.8 mg/dl (0.2-1.3); Blood Urea Nitrogen 23 mg/dl (9-20); Carbon Dioxide 32 mmol/L (22.0-30.0); Creatinine Clearance Estimated 65 mL/min (50-200); Estimated Glomerular Filt Rate 53 ml/min (>60); GFR (African American) 64 ML/MIN (>60); Globulin 3.2 g/dL (1.3-3.2); Glucose 91 mg/dl (74-100); Total Protein,Serum 6.8 g/dl (6.3-8.2)
[2022-10-28 14:56] LABS: Basophils # 0.1 K/mm3 (0-0.2); Basophils % 0.8 % (0.1-2.0); Eosinophils # 0.2 K/mm3 (0.0-0.4); Eosinophils % 2.8 % (0.1-12.0); Hematocrit 46.6 % (42.0-52.0); Hemoglobin 14.8 g/dL (14.1-18.0); Lymphocytes # 1.3 K/mm3 (0.7-4.5); Lymphocytes % 16.2 % (10-50); Mean Corpuscular HGB Conc 31.7 g/dL (31.8-35.4); Mean Corpuscular Hemoglobin 30.1 pg (27.0-31.2); Mean Corpuscular Volume 94.9 fl (80-94); Mean Platelet Volume 8.4 fl (7.4-10.4); Monocytes # 0.7 K/mm3 (0.1-1.0); Monocytes % 8.4 % (1.7-9.3); Neutrophils # 5.8 K/mm3 (1.8-7.8); Neutrophils % 71.8 % (37.0-80.0); Platelet Count 196 K/mm3 (142-424); Red Blood Count 4.91 M/mm3 (4.60-6.20); Red Cell Distribution Width 15.8 % (11.5-17.5)
[2022-10-28 15:01] LABS: INR 2.25 (0.9-1.1)
[2022-10-28 15:04] LABS: NT Pro Brain Natriuretic Pep. 2500 pg/mL (0-450)
[2022-10-28 15:15] LABS: Troponin I < 0.01 ng/ml (0.00-0.034)
--- NOTE | 2022-10-28 15:20 | PC.NURSE ---
NURSE WHEELER ROUNDED ON PT
--- NOTE | 2022-10-28 17:26 | PC.NURSE ---
pt resting in bed no needs at this time,call light at bs
[2022-10-28 18:01] LABS: Troponin I < 0.01 ng/ml (0.00-0.034)
== END 2022-10-28 18:39 | disposition home or self-care (01) ==
PROVIDERS: Emergency Provider Emergency Medicine; PCP Family Medicine
DX: R51.9 Headache, unspecified (principal); E86.0 Dehydration; R42 Dizziness and giddiness; I48.91 Unspecified atrial fibrillation; I25.10 Atherosclerotic heart disease of native coronary artery without angina pectoris; I10 Essential (primary) hypertension; J45.909 Unspecified asthma, uncomplicated; Z87.891 Personal history of nicotine dependence
CPT/HCPCS: 70450; 71045; 80053; 82962; 83880; 84484; 85025; 85610; 93005; 96360; 99285

== ENCOUNTER 2024-11-11 12:08 | Emergency (ER) | payer MEDICARE, BC, SELFPAY ==
[2024-11-11 12:34] VITALS: BP 124/83; PULSE 55; RESP 18; TEMP 36.5; O2SAT 97; BMI 33.0
--- OUTSIDE RECORDS SUMMARY | 2024-11-11 12:39 | XMS_ITS | Clinical Summary ---
Author Organization [facility] Address [address] [place] [address] Phone Care Team Providers Care Analysis Manager Name Role Phone Vasquez Snow MD Primary Care Provider [phone] Carlos Eduardo Huff Allergies No known active allergies Medications allopurinol (ZYLOPRIM) 300 mg Oral Tablet Take 300 mg by mouth 2 times daily. 0 9 Active ergocalciferol (DRISDOL) 50,000 unit Oral Capsule TAKE 1 CAPSULE BY MOUTH EVERY WEEK DIRECTED 0 9 Active famotidine (PEPCID) 20 mg Oral Tablet Take 20 mg by mouth 2 times daily. 0 9 Active warfarin (COUMADIN) 5 mg Oral Tablet Take 5 mg by mouth daily. 0 9 Active atenolol (TENORMIN) 50 mg Oral Tablet Take 50 mg by mouth daily. 0 9 Active lisinopril (PRINIVIL;ZESTR IL) 10 mg Oral Tablet Take 10 mg by mouth daily. 0 9 Active potassium chloride (MICRO-K) 10 mEq Oral Capsule, Sustained Release Take 10 mEq by mouth daily. 0 9 Active pravastatin (PRAVACHOL) 20 mg Oral Tablet Take 20 mg by mouth daily. 0 9 Active cilostazol (PLETAL) 100 mg Oral Tablet Take 1 Tab by mouth 2 times daily. 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 02/16/2019 History of CVA (cerebrovascular accident) 2018 Social History Tobacco Use Types Packs/Day Years Used Date Smoking Tobacco: Former Cigarettes Q uit: 03/31/1995 Smokeless Tobacco: Never Sex and Gender Information Value Date Recorded Sex Assigned at Not on file Legal Sex Male 2:03 PM EDT Gender Identity Not on file Sexual Orientation Not on file Obstetrics History Last Filed Vital Signs Vital Sign Reading Time Taken Comments Blood Pressure 98/60 05/04/2019 10:38 AM EST Pulse - - Temperature - - Respiratory Rate - - Oxygen Saturation - - Inhaled Oxygen Concentration - - Weight 111.1 kg (245 lb) 05/04/2019 10:28 AM EST Height 179.1 cm (5' 10.5 ) 05/04/2019 10:[address] Body Mass Index 34.66 05/04/2019 10:28 AM EST Plan of Treatment Health Maintenance Due Date Last Done Comments Wellness Exam Medicare 1943 DTaP/TDaP/Td (1 - Tdap) 1961 Pneumococcal Vaccine 50+ (1 of 1 - PCV) 02/12/1992 Zoster (1 of 2) 02/12/1992 RSV or 60+ (1 - 1-d ose 75+ series) 2017 COVID-19 Vaccine (1 - 2023-2 5 season) 2023 Influenza Vaccine (#1) 2024 Hepatitis B Vaccine Aged Out No longe r eligible based on patient's age to complete this topic Meningococcal B Vaccine Aged Out No l onger eligible based on patient's age to complete this topic Insurance MEDICARE [place] PART A AND B [facility] MEDICARE SUPPLEMENT MEDICARE [place] PART A AND B Advance Directives For more information, please contact: [phone] Documents on File Type Date Recorded Patient Service Dispatcher Expl anation Advance Directives/DNR 05/04/2019 10:52 AM Care Teams Analysis Manager Relationship Specialty Start Date End Date Vasquez Snow MD [address] [place] [address] PCP - General Family Medicine 02/16/19 Carlos Eduardo Huff [address] [place] [address] Internal Medicine-Cardiovascular Disease 02/16/19
--- OUTSIDE RECORDS SUMMARY | 2024-11-11 12:39 | XMS_ITS | Clinical Summary ---
Author Organization Healthcare Address [address] [place] [address] Care Team Providers Care Contract Recruiter Name Role Phone Pcp, No Primary Care Provider Unavailabl e Social History Tobacco Use Types Packs/Day Years Used Date Smoking Tobacco: Never Sex and Gender Information Value Date Recorded Sex Assigned at Not on file Legal Sex Male 8:55 PM EDT Gender Identity Not on file Sexual Orientation Not on file Last Filed Vital Signs Vital Sign Reading Time Taken Comments Blood Pressure 100/67 09/19/2022 10:05 AM EDT Pulse 80 09/19/2022 10:05 AM EDT Temperature - - Respiratory Rate - - Oxygen Saturation - - Inhaled Oxygen Concentration - - Weight 107 kg (235 lb) 09/19/2022 10:05 AM EDT Height 180.3 cm (5' 11 ) 09/19/2022 10:05 AM EDT Body Mass Index 32.78 09/19/2022 10:05 AM EDT Plan of Treatment Health Maintenance Due Date Last Done Comments [facility]-Depression Screening 1940 [facility]-Medicare Annual Wellness (AWV) 1940 [facility]-/Child/Adol SDOH Screenings 1940 [facility]-Obesity Intervention 02/12/1948 [facility]- SDOH Screenings 02/12/1960 [facility]-Adult SDOH Screenings 02/12/1960 [facility]-Zoster Vaccines (1 of 2) 02/12/1992 [facility]-RSV Vaccine: 60+ Years or (1 - 1-dose 75+ series) 2017 [id number] Vaccine ( - 2023- season) 2023 01/31/2023, 01/31/2021, 06/06/2020 [facility]-Influenza Vaccine (#1) 11/29/202401/14, 01/09/2023, 02/01/2022, Additional history exists [facility]-DTaP,Tdap,and Td Vaccines (2 - Td or Tdap) 11/21/2032 11/21/2022, 06/02/1996 [facility]-Pneumococcal Vaccine: 50+ Years Completed 2020, 02/23/2018 HPV Vaccines Aged Out No longer eligi ble based on patient's age to complete this topic [facility]-HIB Vaccines Aged Out No longer e ligible based on patient's age to complete this topic [facility]-Hepatitis A Vaccines Aged Out No longer eligible based on patient's age to complete this topic [facility]-IPV Vaccines Aged Out No longer e ligible based on patient's age to complete this topic [facility]-Rotavirus Vaccines Aged Out No lo nger eligible based on patient's age to complete this topic Insurance MEDICARE [facility] Care Teams Contract Recruiter Relationship Specialty Start Date End Date Pcp, [place] [address] PCP - General Family Medicine 12/13/21
--- NOTE | 2024-11-11 12:41 | XR_ITS ---
FINAL REPORT CLINICAL HISTORY: laceration FINDINGS: AP, oblique, and lateral views of the left hand were obtained. There is no prior exam for comparison. There is no acute fracture of the left hand. 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 Punctate radiodensity within the soft tissue of the tip of the 2nd digit is consistent with a very small foreign body. IMPRESSION: No acute osseous abnormality of the left hand. Foreign body tip of the 2nd digit. Reviewed, Interpreted and Dictated by Ava Da Silva MD Transcribed by Dalia Youssef Authenticated and [facility]
[2024-11-11 13:00] VITALS: BP 99/70; PULSE 57
[2024-11-11 13:30] VITALS: BP 110/77; PULSE 59; O2SAT 94
--- NOTE | 2024-11-11 13:54 | ED_ITS ---
Discharge Plan Disposition Patient Disposition: Home, Self-Care Prescriptions Prescriptions: New cephalexin 500 mg capsule 500 mg PO QID 5 Days Qty: 20 0RF No Action lisinopril 2.5 mg tablet 2.5 mg PO DAILY Qty: 30 5RF Patient Comments: take 1 tablet by mouth once daily amlodipine [Norvasc] 2.5 mg tablet 2.5 mg PO DAILY Qty: 30 3RF enoxaparin [Lovenox] 100 mg/mL syringe 100 mg SQ Q12H Qty: 20 0RF Rx Instructions: Stop Coumadin 5 days prior to surgery. Lovenox 100 mg SQ BID while off of coumadin. The day before surgery he will take morning dose of lovenox. he will not take the night dose of lovenox. no lovenox morning of surgery. He should resume lovenox and coumadin the night of surgery and keep taking both until INR in range. should have INR rechecked 2-3 days following surgery. thanks! furosemide 40 mg tablet 40 mg PO DAILY Qty: 90 1RF famotidine 20 MG tablet 20 mg PO BID Patient Comments: take 1 tablet by mouth twice a day warfarin 5 MG tablet 2.5 mg PO [facility] Patient Comments: piyush, poly, , sat Rx Instructions: DOSE Mo We Fr - 5mg DOSE Rosas - 2.5mg allopurinol 300 MG tablet 300 mg PO BID Patient Comments: TAKE 1 TABLET TWICE A DAY ergocalciferol (vitamin D2) 50,000 UNIT capsule 50,000 unit PO WEEKLY omeprazole 40 MG capsule,delayed release(DR/EC) 40 mg PO DAILY potassium chloride 10 MEQ capsule, extended release 10 meq PO DAILY acetaminophen 325 MG tablet 650 mg PO Q4HP PRN (Reason: As Needed For Fever Or Pain) 0RF warfarin 5 mg tablet 5 mg PO MOWEFR Patient Comments: TAKE ONE (1) TABLET BY MOUTH ONCE DAILY Rx Instructions: DOSE Mo We Fr - 5mg DOSE Rosas - 2.5mg pravastatin 20 MG tablet 40 mg PO DAILY Qty: 90 0RF Patient Comments: take 1 tablet by mouth once daily atenolol 50 MG tablet 25 mg PO DAILY Qty: 90 0RF Patient Comments: take 1 tablet by mouth once daily Referrals Follow up/Referrals: Vasquez Snow [Primary Care Provider, Medical] - See instructions Activity Restrictions/Add. Instructions Additional Instructions/Restrictions: Please have your sutures removed in 7 to 10 days return to the emergency room with any spreading redness pus coming from the wounds or other concerns. Clinical Impressions Clinical Impression: Laceration of left thumb Instructions Patient Instructions: DI for Laceration Repair Print Language Print Language: Bulgarian Discharge ED Provider: Matt Prajapati General Adult HPI General Chief complaint: Wound/Laceration Stated complaint: [id number] to L thumb Time Seen by Provider: 11/11/24 13:33 Mode of Arrival: Ambulatory Source of Information: Patient Description of Symptoms (Recalled from ER Triage Doc. by RN): pt states he was cutting a piece of wood when the saw blade cut his left thumb. pt states last tetanus was 2022. History of Present Illness HPI narrative: Patient is an 84-year-old male presents today with a left thumb laceration after he was using a saw that he normally cuts with wood and lacerated his finger. Last tetanus shot was within the last few years. No injuries elsewhere. He used to be on blood thinners but stopped several days ago he states. Related Data Home Medications ?Medication ?Instructions ?Recorded ?Confirmed allopurinol 300 mg tablet 300 mg PO BID gout 08/29/17 11/28/22 famotidine 20 mg tablet 20 mg PO BID acid reflux 04/1711/28/22 warfarin 5 mg tablet 2.5 mg PO [facility] Blood thi nner 08/29/17 11/28/22 ergocalciferol (vitamin D2) 1,250 50,000 unit PO WEEKL Y Supplement 03/07/20 11/28/22 mcg (50,000 unit) capsule omeprazole 40 mg capsule,delayed 40 mg PO DAILY acid r eflux 03/08/20 11/28/22 release potassium chloride 10 mEq 10 meq PO DAILY Supplement 1 05/11/19 11/28/22 capsule,extended release warfarin 5 mg tablet 5 mg PO MOWEFR Blood thinner 09/19/22 11/28/22 Previous Rx's ?Medication ?Instructions ?Recorded acetaminophen 325 mg tablet 650 mg (2 x 325 mg) PO Q4H P PRN As 03/13/20 Needed For Fever Or Pain atenolol 50 mg tablet 25 mg (1/2 x 50 mg) PO DAILY blood 09/20/22 pressure #90 tabs pravastatin 20 mg tablet 40 mg (2 x 20 mg) PO DAILY 0 09/20/22 Cholesterol #90 tabs amlodipine 2.5 mg tablet (Norvasc) 2.5 mg PO DAILY #30 tabs 11/07/22 lisinopril 2.5 mg tablet 2.5 mg PO DAILY blood pressu re #30 11/07/22 tabs enoxaparin 100 mg/mL subcutaneous 100 mg SQ Q12H #20 m L 01/31/23 syringe (Lovenox) furosemide 40 mg tablet 40 mg PO DAILY #90 tabs 11/21 cephalexin 500 mg capsule 500 mg PO QID 5 days #20 cap s 11/11/24 Allergies Allergy/AdvReac Type Severity Reaction Status Date / Time isosorbide AdvReac Intermediate headache Verified 11/28/22 10:40 [facility] Disclaimer: The information contained in this section may have been updated after the patient was seen, as this information can be updated by other users. Medical History Asthma Closed fracture of right hip Gout Hematuria History of stroke Hypertension Hypokalemia PNA (pneumonia) Suprapubic pain Surgical History History of cardiac cath Family History Other Cancer Hypertension No significant family history Social History Smoking Status: Former smoker tobacco type: cigarettes second hand exposure: No alcohol intake: current alcohol intake frequency: a few times a month substance use type: denies use current occupational status: retired Travel in the last 8 weeks?: None household members: none housing: house current occupational exposures/hazards: No caffeine: No Have you lived/traveled outside [place] in past 30 days?: No Contact w/someone who lives/traveled outside [place] past 30 days?: No Exposure to someone with infectious disease in past 14 days?: No Do you have a fever (greater than 100.4 F or 38 C)?: No Have you tested positive for COVID-19?: No Exposed to someone with COVID-19 in past 14 days?: No Do you have a sore throat?: No Do you have a cough?: No Do you have any weakness?: No Do you have any diarrhea?: No Are you experiencing any unusual bleeding?: No Do you have any muscle aches/pain?: No Do you have any abdominal pain?: No Are you experiencing loss of taste or smell?: No Other Medical History Have you received the Flu Vaccine for this season: No Have you received the Pneumonia Vaccine: Yes ROS Obtained: Yes All systems reviewed & no additional complaints except as d ocumented Physical Exam General General appearance: alert Respiratory Respiratory exam: Present normal lung sounds bilaterally Cardiovascular Cardiovascular exam: Present normal rhythm Extremities Exam Extremities exam: Present other (Left thumb there is a large volar fat pad laceration horizontally oriented about 3 cm in ragged edges with ongoing bleeding) Neurological Exam Neurological exam: Present alert and oriented X3 Medical Decision Making Medical Records Screening: Per USPSTF and CDC recommendations, given the prevalence of disease in our region, it is our hospital?s policy to screen for HIV and viral Hepatitis for all patients aged 18 and over and those with ongoing risk factors. Lalit Inquiry Pt receiving controlled substance: No Vital Signs: 11/11/24 12:34 11/11/24 13:00 11/11/24 13:30 Temperature 97.7 F Temperature Source Oral Pulse Rate 57 L 59 L Pulse Rate [Right Radial] 55 L Respiratory Rate 18 Blood Pressure 99/70 L 110/77 Blood Pressure [Right Arm] 124/83 Blood Pressure Mean 79 83 Blood Pressure Mean [Right Arm] 96 Blood Pressure Source [Right Arm] Automatic Cuff Blood Pressure Position [Right Arm] Sitting 02 Sat by Pulse Oximetry 97 94 L Oxygen Delivery Method Room Air Orders (Tests/Meds): ED MEDICATIONS Discontinued Medications Generic Name Dose Route Start Last Admin Trade Name Freq PRN Reason Stop Dose Admin Lidocaine HCl 10 ml 11/11/24 12:51 Lidocaine 1% 10ml Mdv IJ 11/11/24 12:52 ONCE ONE ORDERS Category Date Time Status XR hand LT min 3V Stat Exams 11/11/24 12:41 Taken Medical Decision Narrative: Patient with jagged laceration to the volar aspect of the left thumb from a table saw. X-ray was performed which I personally interpreted which shows no evidence of any fracture particular the distal phalanx of the left thumb. See procedure wound was repaired and irrigated he was given prophylactic antibiotics sent home advised to follow-up in 7 to 10 days for suture removal. Procedures Laceration Laceration 1: Site: thumb Side (If applicable): left Size (cm): 3 Description: irregular Depth: simple, single layer and involves subcutaneous layer Local Anesthetic: lidocaine 1% Amount of anesthesia used (mL): 8 (Digital block) Pre-repair: wound explored, irrigated extensively, extensive debridement and wound margins revised Skin layer closed with: nylon Size (cm): 4-0 Number of sutures: 10 Technique: simple, interrupted Critical Care Critical Care Time Critical Care Time: No
[2024-11-11 14:00] VITALS: BP 150/77; PULSE 70; RESP 18; TEMP 36.8; O2SAT 100
== END 2024-11-11 14:03 | disposition home or self-care (01) ==
PROVIDERS: Emergency Provider Student in an Organized Health Care Education/Training Program; PCP Family Medicine
DX: S61.012A Laceration without foreign body of left thumb without damage to nail, initial encounter (principal); W31.2XXA Contact with powered woodworking and forming machines, initial encounter
CPT/HCPCS: 12042; 73130; 99283